=== PATIENT | female | born 1960 | race Hispanic/Latino ===

== ENCOUNTER 2017-02-18 22:42 | Observation (INO) | payer MEDICARE, MEDICAID ==
[2017-02-18 23:54] LABS: PTT 39.5 SEC (22.9-36.1); Prothrombin Time 16.8 SEC (12.0-14.7)
[2017-02-18 23:56] LABS: ALT (SGPT) 24 U/L (8-55); AST (SGOT) 30 U/L (5-34); Alkaline Phosphatase 199 U/L (40-150); Anion Gap 15 mmol/L (10-20); BUN (Urea Nitrogen) 33 mg/dL (9.8-20.1); CK (CPK) 50 U/L (29-168); Calc. Creatinine Clearance 0 mL/min (70-130); Calcium 9.6 mg/dL (7.8-10.44); Carbon Dioxide 20 mmol/L (22-29); Chloride 108 mmol/L (98-107); Estimated GFR-MDRD 28; Globulin 3.8 g/dL (2.4-3.5); Lipase 9 U/L (8-78); Protein, Total 7.8 g/dL (6.0-8.3)
[2017-02-19] LABS: #Eosinphils 0.2 thou/uL (0.0-0.7); #Monocytes 0.1 thou/uL (0.11-0.59); #Neutrophils 2.2 thou/uL (1.40-6.50); %Basophils 0.7 % (0.0-1.0); %Eosinophils 4.3 % (0.0-10.0); %Lymphocytes 29.3 % (21.0-51.0); %Monocytes 3.8 % (0.0-10.0); Hematocrit 37.8 % (36.0-47.0); Mean Platelet Volume 13.7 fL (7.4-10.4); Red Blood Cell (RBC) Count 4.27 mill/uL (4.20-5.40); Troponin I 0.012 ng/mL (< 0.028); White Blood Cell (WBC) Count 3.5 thou/uL (4.8-10.8)
--- NOTE | 2017-02-19 00:04 | RAD ---
PORTABLE AP CHEST X-RAY 02/18/17 HISTORY: Patient became lightheaded and dizzy at [facility]. Syncope. COMPARISON: 11/21/16. FINDINGS: Cardiac silhouette is magnified by projection but is stable in size. Pulmonary vasculature is within normal limits. Lungs are clear. Remote left clavicle fracture is again seen. There has been no inte rval change from prior study. IMPRESSION: No acute cardiopulmonary process. POS: [facility]
[2017-02-19 00:06] LABS: Bilirubin Negative (Negative); Blood, Urine Trace (Negative); Glucose, Urine (Dipstick) Negative (Negative); Ketone, Urine Negative (Negative); Nitrite Negative (Negative); Protein, Urine (Dipstick) Negative (Neg-Trace); Urobilinogen 0.2 mg/dL (0.2-1.0)
[2017-02-19 00:09] LABS: RBC/HPF 0-3 HPF (0-3); Squamous Epithelial 0-3 HPF (0-3); WBC/HPF 0-3 HPF (0-3)
[2017-02-19 00:10] LABS: Bacteria/HPF None Seen HPF (None Seen); Hyaline Casts/LPF 0-3 HYALINE CAST LPF (0-3 Hyaline)
[2017-02-19 00:14] LABS: Acetaminophen Less than 6.0 mcg/mL (10.0-30.0); Salicylate Less than 8.0 mg/dL (15.0-30.0)
[2017-02-19 00:17] LABS: Amphetamine Not Detected (NotDetected); Methadone Not Detected (NotDetected); Methamphetamine Not Detected (NotDetected)
[2017-02-19 02:18] VITALS: BMI 24.2
[2017-02-19] MEDS ORDERED: Sodium Chloride 0.9% 1,000 ML IV SCH (02:28)
[2017-02-19] MEDS ORDERED: Dextrose 5% in Water 1,000 ML IV PRN (02:28)
[2017-02-19] MEDS ORDERED: Dextrose 50% Abboject 50 ML SYRINGE SLOW IVP PRN (02:28)
[2017-02-19] MEDS ORDERED: Mag-Al 1200 mg/1200 mg/30 ML UDCUP PO PRN (02:28)
[2017-02-19] MEDS ORDERED: HumaLOG 300 UNITS/3 ML VIAL SC PRN (02:28)
[2017-02-19] MEDS ORDERED: hydrOXYzine 25 MG TAB PO SCH (03:30)
[2017-02-19] MEDS: HumaLOG 300 UNITS/3 ML VIAL SC PRN ×3 (05:49→16:51)
[2017-02-19 05:52] LABS: Anion Gap 13 mmol/L (10-20); BUN (Urea Nitrogen) 30 mg/dL (9.8-20.1); Calc. Creatinine Clearance 29 mL/min (70-130); Calcium 9.1 mg/dL (7.8-10.44); Carbon Dioxide 19 mmol/L (22-29); Chloride 110 mmol/L (98-107); Estimated GFR-MDRD 29
--- NOTE | 2017-02-19 07:57 | HP ---
PRIMARY CARE PHYSICIAN: She says she cannot remember the name, but does say a physician in [facility]. CHIEF COMPLAINT: \\\\"I am feeling tired and weak and almost passed out [facility].\\\\" HISTORY OF PRESENT ILLNESS: Ms. Gonzalez is a very pleasant 56-year-old female that has a history o f alcoholic cirrhosis as well as diabetes and hypertension. She says for the last 2 weeks, she has been feeling relatively weak and tired. She says that about 2 weeks ago, she felt like she was almo st going to pass out and this was in her home and then she says she was in [employer] shopping when she suddenly felt dizzy and felt like the room was spinning and her vision went black. She says that o ne of the employees in the store noticed it and she was about to fall, but they were able to help he r. She says for a while she felt disoriented and did not know where she was. They called an ambula nce and brought her to the emergency room in [place]. She had a CT scan of the brain done there w hich was negative and then she was transferred to our facility for further evaluation. Currently, t he patient is doing okay. She says she still feels a bit tired and weak. When asked to elaborate o n feeling weak and bad, the patient says that again she just feels tired, but then she became really tearful and says that she has been very depressed and basically lonely. She says that after her mo ther about 2 years ago, she has been very depressed. She admits that she has not discussed thi s with her primary care physician and has not sought any help about it. She lives alone and says th at she has no children and that her sisters and brothers are all busy with their lives and activitie s. She also admits to not eating very much in the last few weeks as well. REVIEW OF SYSTEMS: Constitutional: There have been no fevers, chills, no night sweats, no weight l oss. HEENT: She says she has had a headache off and on, feeling dizzy, some blurred vision off and on. No sore throat, no rhinorrhea, neck pain, no adenopathy. Pulmonary: No hemoptysis, no cough, no wheezing. Cardiovascular: She denies any chest pain. She says occasionally she feels like her heart is racing. There is no PND, no orthopnea. Gastrointestinal: No abdominal pain, no increase in abdominal girth. No significant change in bowels. Genitourinary: She does complain of some dy suria off and on, but no frequency. Musculoskeletal: No muscle pains, weakness or joint pains. Sk in/Integument: She does complain of her skin itching almost all the time and occasionally she will get a rash. Psychiatric: Again the patient does admit to feeling depressed in the last 2 weeks venita addison, but no suicidal or homicidal ideation. PAST MEDICAL HISTORY: Significant for cirrhosis secondary to alcohol, chronic kidney disease stage 4, hypertension, and diabetes mellitus type 2. PAST SURGICAL HISTORY: She has had an AV fistula placed. ALLERGIES: Allergies are to MORPHINE, which causes a rash. FAMILY HISTORY: Significant for diabetes, hypertension, and coronary artery disease in both sides o f her family. SOCIAL HISTORY: She is a nonsmoker. She used to drink heavily, but has not drank in 2 years. She is single and lives alone. MEDICATIONS: Include lactulose and insulin 70/30 twenty units twice a day as well as atenolol 25 mg daily. PHYSICAL EXAMINATION: GENERAL: She is alert and oriented. She appears to be in no acute distress. VITAL SIGNS: Blood pressure is 154/62, heart rate 59, respiratory rate of 18, temperature is 98. HEENT: Her pupils are equal, round, and reactive. Extraocular muscles are intact. Her sclerae are anicteric. Throat, no erythema, no exudates. She has got poor dentition. NECK: She has no bruits, no adenopathy. CARDIOVASCULAR: She has a normal S1, S2. She does have a significant systolic murmur that is radia ting to the carotids. ABDOMEN: Soft. There was some mild diffuse tenderness, but there is no rebound or guarding. EXTREMITIES: There is no edema. No rashes, no bruises, no petechiae. NEUROLOGIC: The exam is nonfocal. LABORATORY RESULTS: Sodium 138, potassium 4.8, chloride is 108, CO2 is 20, BUN of 33, creatinine 1. 86, glucose is 165. White blood cell count 3.5, hemoglobin 12.4, hematocrit is 37.8, platelet count was 22. Urine drug screen was negative. Urinalysis was negative. ASSESSMENT AND PLAN: 1. This is a pleasant 56-year-old female that had a presyncopal episode earlier today. This is in the setting of having cirrhosis as well as decrease in oral intake recently. I suspect she may have been slightly volume depleted when this happened. However, given the audible murmur, we will go ah ead and get an echocardiogram as well as follow this up with carotid Dopplers and monitor her for an y significant arrhythmia and also check orthostasis. For the mild depression, we have counseled her on becoming more socially connected. She does have a local methodist that she attends and will also s tart her on a low dose of Zoloft and I have also encouraged her to discuss this with her primary car e physician as well. 2. For diabetes mellitus, we will continue her usual dose of insulin and also place her on a slidin g scale and monitor for any signs of significant hypoglycemia.
--- NOTE | 2017-02-19 09:30 | ULT ---
ULTRASOUND WITH DOPPLER DUPLEX CAROTID: History: 56-year-old female with syncope. Technique: Grayscale, color flow, and spectral analysis of major arteries of the neck. FINDINGS: There is mild to moderate calcified plaque at the bilateral proximal internal carotid arteries, incl uding internal carotid origins at the carotid bulbs. There is mild plaque at the proximal right exte rnal carotid and distal right common carotid. The highest peak systolic velocities in the internal carotid arteries are 85 cm/s on the right and 1 10 cm/s on the left. ICA/CCA ratios are 0.7 on the right and 1.2 on the left. Vertebral artery flow is antegrade bilaterally. IMPRESSION: 1. Bilateral atherosclerotic plaque at the proximal internal carotid arteries. 2. No hemodynamically significant stenosis. POS: [facility]
[2017-02-19] MEDS: Insulin NPH/Reg Insulin Hm 300 UNITS/3 ML VIAL SC SCH ×2 (10:31→16:51)
--- NOTE | 2017-02-19 14:45 | PDOC.PN ---
- Subjective Encounter Start Date: 02/19/17 Encounter Start Time: 14:43 Patient seen at bedside. No overnight events, states her legs are weak, but has been walking with the walking program. - Objective Resuscitation Status: Resuscitation Status FULL:Full Resuscitation Vital Signs & Weight: Vital Signs (12 hours) Temp Pulse Resp BP BP BP BP 02/19/17 10:48 98.4 F 66 16 02/19/17 09:16 180/77 H 199/86 H 180/83 H 184/78 H 02/19/17 07:45 99.2 F 67 16 02/19/17 07:10 99.2 F 67 16 BP BP BP Pulse Ox 02/19/17 10:48 145/67 H 97 02/19/17 09:16 02/19/17 07:45 02/19/17 07:10 147/67 H 159/70 H 136/63 96 Weight Weight 120 lb I&O: 02/18/17 02/19/17 02/20/17 06:59 06:59 06:59 Intake Total 365 120 Output Total 100 Balance 265 120 Result Diagrams: 02/18/17 23:00 02/19/17 05:10 Additional Labs: Accuchecks 02/19/17 02/19/17 02/19/17 12:59 11:06 05:46 POC Glucose 365 H 445 H 366 H Phys Exam - Physical Examination Constitutional: NAD Dry oral mucosa Neck: no JVD Respiratory: clear to auscultation bilateral Cardiovascular: RRR Gastrointestinal: soft Musculoskeletal: pulses present Neurological: moves all 4 limbs Psychiatric: normal affect, A&O x 3 Dx/Plan (1) Syncope Code(s): R55 - SYNCOPE AND COLLAPSE Status: Suspected (2) Hepatorenal syndrome Code(s): K76.7 - HEPATORENAL SYNDROME Status: Chronic (3) ALESSANDRO (acute kidney injury) Code(s): N17.9 - ACUTE KIDNEY FAILURE, UNSPECIFIED Status: Acute Comment: (4) DM type 2 (diabetes mellitus, type 2) Status: Chronic (5) HTN (hypertension) Code(s): I10 - ESSENTIAL (PRIMARY) HYPERTENSION Status: Chronic - Plan cont current plan of care, PT/OT, social worker school, out of bed/ambulate * Unclear etiology to her near syncopal episode. Orthostatics have been negative. She does have a first degree AV Block. Her atenolol has been discontinued and should likely remain discontinued * Start Hydralazine for better BP control * Continue gentle IV hydration. Her CKD is likely from hepatorenal syndrome. CMET in AM * Walking program * CM for HH assistance.
[2017-02-19] MEDS: Multivit, Therapeutic 1 TAB PO SCH (21:35)
[2017-02-19] MEDS: hydrOXYzine 25 MG TAB PO SCH (21:36)
[2017-02-20 05:42] LABS: ALT (SGPT) 18 U/L (8-55); AST (SGOT) 29 U/L (5-34); Alkaline Phosphatase 142 U/L (40-150); Anion Gap 9 mmol/L (10-20); BUN (Urea Nitrogen) 32 mg/dL (9.8-20.1); Bilirubin, Total 1.1 mg/dL (0.2-1.2); Calc. Creatinine Clearance 29 mL/min (70-130); Calcium 8.9 mg/dL (7.8-10.44); Carbon Dioxide 19 mmol/L (22-29); Chloride 113 mmol/L (98-107); Estimated GFR-MDRD 29
[2017-02-20] MEDS ORDERED: Prevnar 13-Val Conj/PF 0.5 ML SYRINGE IM ONE ×2 (09:00→11:00)
[2017-02-20] MEDS ORDERED: FLU VACC QS2017-18 36 mo. & older 0.5 ML SYRINGE IM ONE (09:00)
[2017-02-20 09:31] LABS: Bilirubin Negative (Negative); Blood, Urine Trace (Negative); Glucose, Urine (Dipstick) Negative (Negative); Ketone, Urine Negative (Negative); Nitrite Negative (Negative); Protein, Urine (Dipstick) Negative (Neg-Trace); Urobilinogen 0.2 mg/dL (0.2-1.0)
[2017-02-20] MEDS: Insulin NPH/Reg Insulin Hm 300 UNITS/3 ML VIAL SC SCH ×2 (09:40→16:15)
[2017-02-20] MEDS ORDERED: Fluconazole 100 MG TAB PO SCH (11:15)
[2017-02-20] MEDS ORDERED: NPH, Human Insulin Isophane 300 UNIT/3 ML VIAL SC SCH (12:00)
[2017-02-20] MEDS: HumaLOG 300 UNITS/3 ML VIAL SC PRN (12:03)
--- NOTE | 2017-02-20 13:47 | PRG ---
DATE OF SERVICE: 02/20/2017 SUBJECTIVE: The patient seen and examined at bedside. She is complaining about neck pain. Her blo od pressure is elevated and her glycemia went up significantly. OBJECTIVE: VITAL SIGNS: Blood pressure is 190/86, pulse is 83, temperature is 99.0, pulse oximetry is 95% on r oom air. GENERAL: She looks somewhat tired and emaciated. HEENT: Eyes, conjunctivae pinkish. Oral mucosa is somewhat dry. NECK: Supple. LUNGS: Clear. HEART: S1, S2 normal. ABDOMEN: Mildly distended, but soft, nontender. EXTREMITIES: No clubbing, cyanosis or edema. NEUROLOGIC EXAMINATION: She is alert and oriented x4. There are no motor deficits. LABORATORY DATA: Showed glycemia at 457. Urinalysis showed trace of blood, otherwise within normal limits. Sodium of 136, potassium 4.6, chloride 113, CO2 19, BUN 32 and creatinine 1.79. Estimated GFR 29. Glycemia is ranging from 138 to 457. IMPRESSION: 1. Syncope and collapse. 2. Acute on chronic kidney injury. 3. Diabetes mellitus type 2. 4. Uncontrolled hypertension. PLAN: Start her on calcium channel jake to control her blood pressure better. She had elevated blood pressure yesterday. We will also add additional dose of insulin 70/30 along with her regular dose, which is 20 units twice a day. I will try her on tramadol for her neck pain and should able t o be discharged home in the next 24-48 hours.
[2017-02-20] MEDS ORDERED: Insulin Regular 300 UNITS/3 ML VIAL SC SCH (16:00)
[2017-02-20] MEDS: hydrOXYzine 25 MG TAB PO SCH (20:58)
[2017-02-20] MEDS: Multivit, Therapeutic 1 TAB PO SCH (20:58)
[2017-02-21] MEDS: HumaLOG 300 UNITS/3 ML VIAL SC PRN ×3 (06:00→15:50)
[2017-02-21] MEDS: Insulin NPH/Reg Insulin Hm 300 UNITS/3 ML VIAL SC SCH (08:31)
[2017-02-21] MEDS ORDERED: Fluconazole 100 MG TAB PO SCH (09:00)
[2017-02-21 11:41] VITALS: BP 139/65; TEMP 99.2
--- NOTE | 2017-02-21 14:54 | PDOC.PN ---
- Subjective Encounter Start Date: 02/21/17 Encounter Start Time: 14:52 Ms. Gonzalez is complaining of feeling a bit weak, otherwise ok. - Objective Resuscitation Status: Resuscitation Status FULL:Full Resuscitation MAR Reviewed: Yes Vital Signs & Weight: Vital Signs (12 hours) Temp Pulse Resp BP BP Pulse Ox 02/21/17 10:38 99.2 F 85 16 139/65 98 02/21/17 08:30 85 02/21/17 07:30 99.3 F 85 16 144/64 H 96 02/21/17 07:15 99.5 F 85 16 96 02/21/17 05:56 83 18 152/70 H Weight Weight 120 lb I&O: 02/20/17 02/21/17 02/22/17 06:59 06:59 06:59 Intake Total 2154 900 Output Total 450 Balance 2154 450 Result Diagrams: 02/18/17 23:00 02/20/17 04:21 Additional Labs: Accuchecks 02/21/17 02/20/17 02/20/17 10:36 20:48 17:06 POC Glucose 444 H 274 H 370 H 02/20/17 15:37 POC Glucose 432 H Phys Exam - Physical Examination HEENT: PERRLA Respiratory: no wheezing, no rales, no rhonchi, clear to auscultation bilateral Cardiovascular: RRR, no significant murmur Gastrointestinal: soft, non-tender, positive bowel sounds Musculoskeletal: no edema Dx/Plan (1) Pre-syncope Status: Acute (2) Cirrhosis, alcoholic Code(s): K70.30 - ALCOHOLIC CIRRHOSIS OF LIVER WITHOUT ASCITES Status: Chronic Qualifiers: Ascites presence: with ascites Qualified Code(s): K70.31 - Alcoholic cirrhosis of liver with ascites (3) DM type 2 (diabetes mellitus, type 2) Status: Chronic (4) HTN (hypertension) Code(s): I10 - ESSENTIAL (PRIMARY) HYPERTENSION Status: Chronic (5) Thrombocytopenia Code(s): D69.6 - THROMBOCYTOPENIA, UNSPECIFIED Status: Chronic - Plan * Pre-syncope- possibly due to orthostasis * HTN- blood pressure medications have been adjusted * DM- blood glucose is labile, will discharge home on a sliding scale insulin .
--- NOTE | 2017-02-21 23:33 | DIS ---
PRIMARY CARE PHYSICIAN: The patient could not remember the name of her primary care physician. DATE OF ADMISSION: 02/19/2017 DATE OF DISCHARGE: 02/21/2017 DISCHARGE DISPOSITION: Home. PRIMARY DISCHARGE DIAGNOSES: 1. Presyncope. 2. Orthostatic hypotension. 3. Diabetes mellitus, type 2. 4. Alcoholic cirrhosis with coagulopathy and thrombocytopenia. 5. Depression. DISCHARGE MEDICATIONS: Include, hydroxyzine 25 mg at bedtime as well as Apresoline 25 mg twice a da y, Norvasc 2.5 mg daily, Zoloft 50 mg daily, nortriptyline 10 mg twice a day, lactulose 10 mg daily, insulin 70/30 of 26 units twice daily and Humalog on a sliding scale. CODE STATUS: FULL CODE. ALLERGIES: To DIPHENHYDRAMINE and MORPHINE. PROCEDURES DONE DURING ADMISSION: The patient had an echocardiogram in which the ejection fraction was estimated at 60%-65%. The left atrium was moderately dilated. The aortic valve was sclerotic, but not stenotic with a peak gradient of 16 mmHg. The patient had bilateral carotid Dopplers, which were negative for any flow limiting disease; however, there was some bilateral atherosclerotic plaq ue. HOSPITAL COURSE: Ms. Gonzalez is a very pleasant 56-year-old female, who came to the emergency room after she has been feeling tired and weak and almost passed out while she was at [facility], the compl ete details of which are outlined in the history and physical. She was placed in observation and ru led out. Carotid Doppler and echo were obtained, which were essentially negative and it is suspecte d that her symptoms are likely multifactorial, but contributed to by some orthostatic blood pressure that was noted on admission. She has had poor oral intake and she has chronic cirrhosis of the [facility], which likely contributing. She also admitted to some depressed feelings as well and these were discussed and she was started on Zoloft. She has been instructed to follow up with her primary care physician in 1-2 weeks and also did discuss her depression symptoms as well and medication changes were made as mentioned. She was taken off of atenolol and placed on hydralazine as well as amlodipi ne as she did have some degree of bradycardia on admission. Her heart rate at the time of discharge was in the 80s. Therefore, the patient is being discharged home.
--- NOTE | 2017-02-22 14:37 | EKG ---
Test Reason : Blood Pressure : / mmHG Vent. Rate : 053 BPM Atrial Rate : 053 BPM P-R Int : 222 ms QRS Dur : 088 ms QT Int : 488 ms P-R-T Axes : 021 018 067 degrees QTc Int : 457 ms Sinus bradycardia with 1st degree A-V block Otherwise normal ECG Confirmed by JEFF ARIAS, KELECHI ([id number]), technical editor ANNIE WOOD ([id number]) on 02/22/2017 2:37:02 PM Referred By: Confirmed By:KELECHI AGUILAR MD
== END 2017-02-21 17:00 | disposition home or self-care (01) ==
LOC: ERS 22:42 → 2SW 02-19 00:54
PROVIDERS: ADMIT Internal Medicine; ATTEND Internal Medicine
DX: R55 Syncope and collapse (principal); I95.1 Orthostatic hypotension; K70.30 Alcoholic cirrhosis of liver without ascites; D69.59 Other secondary thrombocytopenia; D68.8 Other specified coagulation defects; F32.9 Major depressive disorder, single episode, unspecified; I12.9 Hypertensive chronic kidney disease with stage 1 through stage 4 chronic kidney disease, or unspecified chronic kidney disease; E11.22 Type 2 diabetes mellitus with diabetic chronic kidney disease; N18.4 Chronic kidney disease, stage 4 (severe); Z88.5 Allergy status to narcotic agent; Z88.8 Allergy status to other drugs, medicaments and biological substances; Z79.4 Long term (current) use of insulin; Z79.899 Other long term (current) drug therapy; Z82.49 Family history of ischemic heart disease and other diseases of the circulatory system; Z99.2 Dependence on renal dialysis
CPT/HCPCS: 71010; 80048; 80053; 80306; 80307; 81003 ×2; 81015; 82140; 82550; 82553; 82962 ×3; 83690; 83880; 84146; 84484; 85610; 85730; 90670; 93005; 93306; 93880; 96361; 96374; 97139 ×6; 97530; 99285; G0008; G0009; G0378 ×2; G8987; G8988; Q2036; 36415; 36416; 84443; 85025; 90471; 90682; 96360; A4216; J0360

== ENCOUNTER 2018-07-06 03:48 | Inpatient (IN) | payer MEDICARE, MEDICAID ==
[2018-07-06 04:58] LABS: Hemoglobin 10.5 g/dL (12.0-16.0); Mean Corpuscular Hemoglobin 32.9 pg (27.0-31.0); Mean Corpuscular Volume 96.6 fL (78.0-98.0); Mean Platelet Volume 13.1 fL (7.4-10.4); Platelet Count 21 thou/uL (130-400); RBC Distribution Width 12.9 % (11.5-14.5); Red Blood Cell (RBC) Count 3.18 mill/uL (4.20-5.40); White Blood Cell (WBC) Count 4.8 thou/uL (4.8-10.8)
[2018-07-06 05:14] LABS: ALT (SGPT) 11 U/L (8-55); AST (SGOT) 10 U/L (5-34); Albumin 3.2 g/dL (3.5-5.0); Alkaline Phosphatase 102 U/L (40-150); Anion Gap 14 mmol/L (10-20); BUN (Urea Nitrogen) 49 mg/dL (9.8-20.1); Calc. Creatinine Clearance 0 mL/min (70-130); Calcium 8.8 mg/dL (7.8-10.44); Carbon Dioxide 16 mmol/L (22-29); Chloride 108 mmol/L (98-107); Estimated GFR-MDRD 23; Globulin 2.8 g/dL (2.4-3.5); Glucose 287 mg/dL (70-105); Potassium 4.4 mmol/L (3.5-5.1); Sodium 134 mmol/L (136-145)
[2018-07-06 05:22] LABS: #Lymphocytes 0.3 thou/uL (1.20-3.40); #Monocytes 0.4 thou/uL (0.11-0.59); %Basophils 0.4 % (0.0-1.0); %Eosinophils 0.9 % (0.0-10.0); %Monocytes 8.9 % (0.0-10.0); %Neutrophils 82.7 % (42.0-75.0); Band 22 % (5-11); Lymphocytes 7 % (21-51); MDiff Complete? YES; Monocytes 8 % (0-10); Neutrophil 63 % (42-75); Platelet Morphology Comment Appears Decreased; Reflex for Review?? YES
--- NOTE | 2018-07-06 07:11 | ULT ---
RIGHT UPPER QUADRANT ULTRASOUND: INDICATIONS: Abdominal pain. COMPARISON: Prior right upper quadrant ultrasound dated 06/14/2015. FINDINGS: Again seen is the cirrhotic morphology to the liver. There is slight dilatation of the main pancreat ic duct, up to 3 mm. There is dilatation of the common bile duct, up to 7 mm. These are both new fr om the prior exam. Gallstones are again seen within the gallbladder. No sonographic Tejeda sign is reported. No gallbladder wall thickening is grossly evident. The right kidney measured 8.4 cm in le ngth, without evidence of hydronephrosis. Visualized pancreatic parenchyma appears within normal kevin its. IMPRESSION: 1. Cirrhotic morphology of the liver. 2. Stable cholelithiasis. 3. Dilatation of the distal common bile duct, and slight prominence of the main pancreatic duct, at the level of the pancreatic head. A distal obstructing process within the common bile duct or ampull a cannot be entirely excluded. Recommend consideration for endoscope retrograde cholangiopancreatogr aphy or magnetic resonance cholangiopancreatography evaluation for additional evaluation for possible choledocholithiasis or a distal obstructing process. 4. No overt sonographic evidence of acute calculus cholecystitis. POS: [facility]
[2018-07-06] MEDS ORDERED: Artificial Tears 18 DROP/0.9 ML EA EYE PRN (08:40)
[2018-07-06] MEDS ORDERED: hydrALAZINE 20 MG/ML VIAL SLOW IVP PRN (08:40)
[2018-07-06] MEDS ORDERED: Eucerin (Mineral Oil/Petrolatum,White) 30 gm Jar TOP PRN (08:40)
[2018-07-06] MEDS ORDERED: Dextrose 50% Abboject 50 ML SYRINGE SLOW IVP PRN (08:40)
[2018-07-06] MEDS ORDERED: Ondansetron ODT 4 MG TAB PO PRN (08:40)
[2018-07-06] MEDS ORDERED: Ondansetron PF 4 MG/2 ML Vial IVP PRN (08:40)
[2018-07-06] MEDS ORDERED: Diabetic Tussin 200 MG/10 ML UDCUP PO PRN (08:40)
[2018-07-06] MEDS ORDERED: Sodium Chloride 0.65% Nasal 44 ML BOT EA NARE PRN (08:40)
[2018-07-06] MEDS ORDERED: Dextrose 5% in Water 1,000 ML IV PRN (08:40)
[2018-07-06] MEDS ORDERED: Bisacodyl 10 MG SUPP PR PRN (08:40)
[2018-07-06] MEDS ORDERED: Cepastat Lozenges 1 LOZ PO PRN (08:40)
[2018-07-06 08:50] VITALS: BMI 23.2
[2018-07-06] MEDS ORDERED: traMADol HCl 50 MG TAB PO SCH (09:45)
[2018-07-06] MEDS: Famotidine 20 MG TAB PO SCH (10:32)
[2018-07-06] MEDS: Famotidine/PF 20 mg/2ml Vial SLOW IVP SCH (10:33)
--- NOTE | 2018-07-06 11:38 | HP ---
PRIMARY CARE PHYSICIAN: [facility]. REASON FOR ADMISSION: Transferred from [facility] for hyperglycemia. HISTORY OF PRESENT ILLNESS: A 58-year-old female, who has underlying history of cirrhosis of liver and end-stage renal disease, who presented to [place] [facility] because she was having abdominal pain, which was predominantly diffuse lower part in the right lower quadrant and below umbilicus, 4 x 10 in intensity. There was no specific aggravating or relieving factor, but the patient was having intermittent pain on and Friday, she had diarrhea, which was only little liquidy and soft, associated with crampy abdominal pain. On Friday, she was having nausea and vomiting. She was feeling subjective fevers. She denies any UTI symptoms. She denies any melena or hematochezia. She denies any vomiting of blood. She denies any flu-like symptoms. The patient's symptoms gotten worse on Friday and that is why she decided to go to emergency room last night at [facility], where she had CT scan of abdomen, which showed third-spacing in gallbladder area. The patient was transferred to our emergency room. The patient was found with cirrhotic morphology of liver. She had ultrasound of right upper quadrant, which showed cholelithiasis and dilatation of distal common bile duct. The patient has chronic hypersplenism and chronic thrombocytopenia. She denies any petechiae or any kind of bleeding from any side of her body. REVIEW OF SYSTEMS: CONSTITUTIONAL: Negative for weight loss or gain, ability to conduct usual activities. SKIN: Negative for rash, itching. EYES: Negative for double vision, pain. ENT/MOUTH: Negative for nose bleeding, neck stiffness, pain, tenderness. CARDIOVASCULAR: Negative for palpitations, dyspnea on exertion, orthopnea. RESPIRATORY: Negative for shortness of breath, wheezing, cough, hemoptysis, fever or night sweats. GASTROINTESTINAL: Negative for poor appetite, abdominal pain, heartburn, nausea, vomiting, constipation, or diarrhea. GENITOURINARY: Negative for urgency, frequency, dysuria, nocturia. MUSCULOSKELETAL: Negative for pain, swelling. NEUROLOGIC/PSYCHIATRIC: Negative for anxiety, depression. ALLERGY/IMMUNOLOGIC: Negative for skin rash, bleeding tendency. Please see my HPI for pertinent positive and negative. All other review of systems reviewed and negative except as mentioned in the HPI. PAST MEDICAL HISTORY: Liver cirrhosis, diabetes type 2, hypersplenism, chronic thrombocytopenia, chronic disease anemia, ESRD with history of dialysis, and hypertension. PAST SURGICAL HISTORY: History of dialysis shunt in left arm. PAST PSYCHIATRIC HISTORY: Reviewed and negative. Anxiety and depression. SOCIAL HISTORY: The patient denies any alcohol abuse. She denies any other illicit drug abuse. She denies any smoking. FAMILY HISTORY: No family history of coronary artery disease, stroke, or cancer. ALLERGIES: BENADRYL AND MORPHINE. CURRENT HOME MEDICATIONS: 1. Atarax 25 mg p.o. at bedtime. 2. Lactulose daily. 3. Amitriptyline 10 mg b.i.d. 4. Norvasc 2.5 mg p.o. daily. 5. Humulin 70/30. 6. Hydralazine 25 mg b.i.d. 7. Zoloft 50 mg p.o. daily. PHYSICAL EXAMINATION: VITAL SIGNS: On arrival, blood pressure 125/67, pulse 74, respiratory rate 16, temperature 99.6, and saturation 94% on room air. Weight 47.1 kg. GENERAL: The patient is currently alert, awake, chronically ill, no obvious acute distress. HEENT: Head; normocephalic, atraumatic. Eyes; pupils are round and reactive to light. Extraocular muscle intact. ENT; oropharynx within normal limits. Pale mucous membranes. No pharyngeal erythema. No exudate. NECK: Supple. No JVD. No thyromegaly. No carotid bruit. LUNGS: Clear to auscultation without any rhonchi or rales. CARDIAC: S1 and S2 appears regular. Systolic murmur noted parasternally and all over precordium. ABDOMEN: Soft, diffuse discomfort noted predominantly in the right lower quadrant and suprapubic region. No Tejeda's sign. BACK: Unremarkable. No CVA tenderness. EXTREMITIES: Upper extremities, passive movement of all joints are normal. Lower extremity, no edema. Good distal pulsation. SKIN: No skin rash. HEMATOLOGICAL SYSTEM: No lymphadenopathy. NEUROLOGIC: Nonfocal examination. SIGNIFICANT LABORATORY DATA: CBC; WBC 4.8, hemoglobin 10.5, and platelet 21. BMP; sodium 134, potassium 4.4, chloride 108, carbon dioxide 16, BUN 49, creatinine 2.21, glucose 287, and calcium 8.8. LFT; AST 10, ALT 11, alkaline phosphatase 102, and albumin 3.2. Blood test done at [facility] reviewed. Abdominal ultrasound consistent with cirrhotic morphology of liver, hypersplenism, cholelithiasis, dilatation of distal common bile duct. CT abdomen and pelvis done at [facility], reviewed by me. ASSESSMENT AND PLAN: 1. Dilatation of distal common bile duct. The patient does have cholelithiasis. The patient does have right upper quadrant and lower abdominal discomfort. She has underlying cirrhosis. We will consult Gastroenterology for evaluation. Strange thing with this patient is her LFTs completely unremarkable, but cirrhosis can be contributing. We will defer further plan to last dipper regarding endoscopic retrograde cholangiopancreatography. Because of renal insufficiency, the patient is not a good candidate to get MRCP. 2. Cirrhosis of liver with portal hypertension. The patient has hypersplenism and because of that, the patient has chronic thrombocytopenia. Currently, the patient does not have any decompensation. We will continue symptomatic treatment. 3. History of hypertension, but currently low blood pressure. We will hold on antihypertensive medication and we will resume blood pressure medication if blood pressure permits. 4. Hyperglycemia associated with diabetes type 2. Once we verify her home medication, we will resume her home dose of insulin. We will monitor Accu-Chek every 4 hourly and cover with aggressive sliding-scale insulin. Diabetic diet will be given. 5. Ovarian mass. We will obtain a pelvic ultrasound for further evaluation. The patient will need outpatient [employer] followup. 6. Chronic kidney disease, stage 5/end-stage renal disease. Nephrology will be consulted. 7. Metabolic acidosis, likely due to renal failure. 8. Anemia of chronic disease secondary due to chronic kidney disease as well as cirrhosis of liver. 9. Chronic thrombocytopenia without any active evidence of bleeding secondary to hypersplenism. 10. Deep vein thrombosis prophylaxis, SCD boots. Gastrointestinal prophylaxis, Pepcid 20 mg p.o. or IV daily. 11. Code status: The patient is full code. The patient does not have any surrogate decision maker. DISPOSITION PLAN: Based on clinical course, we are expecting the patient's stay in hospital 24 to 48 hours. Plan of care discussed with the patient in detail. Job ID: [id number]
--- NOTE | 2018-07-06 12:44 | ULT ---
ULTRASOUND PELVIC COMPLETE: HISTORY: Pelvic mass. COMPARISON: CT 07/05/2018. FINDINGS: Exam is limited as the patient refused transvaginal approach. In the left adnexa is a 3 cm mass which is somewhat hypoechoic, although not anechoic. Concerning fo r a possible malignant process in a patient of this age. Endometrial thickness if 4 mm. Uterus measures 5.6 x 4.6 cm. IMPRESSION: Severely limited exam due to lack of transvaginal approach. A 3 cm hypoechoic although not an anecho ic mass in the left adnexa not completely characterized. If clinically warranted, MRI with and witho ut contrast of pelvis may be clinically helpful. POS: [facility]
[2018-07-06] MEDS: HumaLOG 300 UNITS/3 ML VIAL SC PRN ×3 (12:59→20:41)
[2018-07-06] MEDS: Sodium Chloride 0.9% 1,000 ML IV SCH (19:31)
--- NOTE | 2018-07-06 23:40 | CON ---
DATE OF CONSULTATION: HISTORY OF PRESENT ILLNESS: Ms. Gonzalez is a 58-year-old female who was initially admitted from [facility] for hypercalcemia. She has a known history of cirrhosis and chronic renal failure from a presumed diabetic nephropathy? During the initial workup, she was found to have an abnormal ultrasound. We are being consulted for her acute kidney injury on top of her chronic renal failure. Baseline creatinine is usually at about 1.9. Creatinine is mildly elevated today at about 2 mg%. REVIEW OF SYSTEMS: Positive for abdominal pain. No nausea. No vomiting. Decreased appetite. Decreased energy level. No headache. No syncopal episode. No productive cough. No fever or chills. No gross hematuria. No dysuria. No urinary frequency. Positive for abdominal discomfort. PAST MEDICAL HISTORY: 1. Chronic renal failure. 2. Status post acute kidney injury, was temporarily on maintenance hemodialysis. 3. The patient has history of cirrhosis, hypersplenism, chronic thrombocytopenia, chronic anemia, and longstanding hypertension. 4. History of CHF. PAST SURGICAL HISTORY: Includes the following; 1. Status post AV fistula placement. 2. Status post cuffed dialysis catheter placement. 3. Status post exploration of the AV fistula for hematoma. SOCIAL HISTORY: The patient lives in [place]. Lives with her sister. No children. She is . No history of smoking. Status post alcohol abuse. Currently, no alcohol. Education, some college courses. Currently not working. No IV drug abuse. Status post blood transfusion. ALLERGIES: MORPHINE, PENICILLIN. TRAUMA: None. IMMUNIZATION: Up-to-date. HOSPITALIZATIONS: Please see past medical history. FAMILY HISTORY: No family history of ESRD. PHYSICAL EXAMINATION: VITAL SIGNS: Blood pressure is 86/49, heart rate 69, respiratory rate 18, temperature 98.1, and pulse ox 93%. GENERAL: Awake, alert, comfortable, not in overt distress. SKIN: Adequate turgor. HEENT: She has pinkish conjunctivae. Anicteric sclerae. No neck mass. No carotid bruits. No JVD. CHEST: No deformities. LUNGS: Decreased breath sounds. HEART: Normal sinus rhythm. Grade 2/6 systolic murmur. No gallops. No rubs. ABDOMEN: Globular, soft. Mild tenderness in right upper quadrant. EXTREMITIES: No edema. No deformities. She has a left AV fistula, positive for bruit and thrill. IMAGING STUDIES: 07/06/2018, ultrasound of the abdomen showed dilatation of distal common bile duct. There is a stable cholelithiasis. No evidence of acute calculous cholecystitis. On 07/06/2018, pelvic ultrasound ?of pelvic mass, severely limited exam due to lack of transvaginal approach at 3 cm hypoechoic noted. Recommendation is MRI. LABORATORY DATA: On 07/06/2018; white count 4.8, hemoglobin 10.5. Sodium 134, potassium 4.4, chloride 108, carbon dioxide 16, BUN 49, creatinine 2.21, glucose 287, calcium 8.8, and albumin 3.2. ASSESSMENT AND PLAN: 1. Acute kidney injury on top of her chronic renal failure, consider superimposed prerenal azotemia. The patient in a background of decreased BP. Consider starting this patient on normal saline at 100 mL/hr. There is no indication for any dialytic intervention with this patient. 2. Cirrhosis/abnormal abdominal ultrasound with findings of dilatation of common bile duct. GI consult has been done. Possibility of upper GI endoscopy/endoscopic retrograde cholangiopancreatography is being entertained by Dr. Colby. For the moment, we agree with current management. Continue supportive care. Job ID: [id number]
[2018-07-07] MEDS: HumaLOG 300 UNITS/3 ML VIAL SC PRN ×7 (00:28→23:47)
[2018-07-07] MEDS: Sodium Chloride 0.9% 1,000 ML IV SCH ×3 (04:08→19:46)
[2018-07-07 07:52] LABS: Hemoglobin 9.9 g/dL (12.0-16.0); Mean Corpuscular Hemoglobin 32.3 pg (27.0-31.0); Mean Corpuscular Volume 97.8 fL (78.0-98.0); Mean Platelet Volume 13.3 fL (7.4-10.4); Platelet Count 11 thou/uL (130-400); RBC Distribution Width 12.9 % (11.5-14.5); Red Blood Cell (RBC) Count 3.05 mill/uL (4.20-5.40); White Blood Cell (WBC) Count 2.4 thou/uL (4.8-10.8)
[2018-07-07 08:11] LABS: ALT (SGPT) 10 U/L (8-55); AST (SGOT) 12 U/L (5-34); Alkaline Phosphatase 99 U/L (40-150); Anion Gap 14 mmol/L (10-20); BUN (Urea Nitrogen) 54 mg/dL (9.8-20.1); Bilirubin, Total 0.9 mg/dL (0.2-1.2); Calc. Creatinine Clearance 23 mL/min (70-130); Calcium 8.4 mg/dL (7.8-10.44); Carbon Dioxide 15 mmol/L (22-29); Chloride 110 mmol/L (98-107); Estimated GFR-MDRD 23; Globulin 2.6 g/dL (2.4-3.5); Glucose 310 mg/dL (70-105); Potassium 4.7 mmol/L (3.5-5.1); Protein, Total 5.6 g/dL (6.0-8.3); Sodium 134 mmol/L (136-145)
[2018-07-07] MEDS: Famotidine 20 MG TAB PO SCH (08:25)
--- NOTE | 2018-07-07 08:36 | CON ---
DATE OF CONSULTATION: 07/06/2018 REASON FOR CONSULTATION: Abdominal pain, abnormal sonogram of the abdomen showing mildly dilated CBD and also mild dilatation of the pancreatic duct. HISTORY OF PRESENT ILLNESS: Elizabeth Gonzalez is a very pleasant 58-year-old Latin-Guy[place] female who is known to me from before. The patient is noted liver cirrhosis from before. The patient has seen me recently in 05/2018 with some vague abdominal pain. She had abdominal sonogram, which revealed gallstones which was felt to be asymptomatic. She also had liver cirrhosis with nodular liver. Her CBD was normal caliber. The patient was seen in [place] [facility] because of abdominal pain. Her abdominal pain is very atypical. Her pain is actually predominantly over the lower abdomen and it was felt across lower abdomen. She also feels some pain over the right side of the abdomen, especially the right lateral abdomen, not over the right upper quadrant. The pain is actually worse when . The pain is somewhat very atypical. The pain is actually in multiple locations from the right lower abdomen to the right upper quadrant, not coming around. Apparently, she has some nausea, vomiting on one day over the weekend. She also has transient diarrhea. She has had no stool for last couple of days. The patient was seen in the ER and hospitalized because of abnormal abdominal CAT scan showing fluid in the gallbladder area. The patient had abdominal sonogram, which revealed a mildly dilated CBD at 7 mm. The kidneys actually appeared normal. The pancreatic duct is up to 3 mm. Liver function test normal. The patient has had chronic GI symptoms over the last 2 to 3 years. She also complains of abdominal pain and also nausea etc. She has no relevant history. MEDICAL ILLNESSES: 1. Liver cirrhosis. 2. Type 2 diabetes. 3. Hypersplenism. 4. Chronic thrombocytopenia. 5. Chronic anemia. 6. Chronic kidney disease. 7. Hypertension. PAST SURGICAL HISTORY: History of dialysis access, AV shunt in left arm. NEUROPSYCHIATRY HISTORY: Depression and anxiety. SOCIAL HISTORY: The patient does not smoke or drink alcohol. No history of drug abuse. FAMILY HISTORY: Unremarkable. ALLERGIES: BENADRYL AND MORPHINE. MEDICATIONS: 1. Atarax. 2. Lactulose. 3. Amitriptyline. 4. Norvasc. 5. Humulin. 6. Hydralazine. 7. Zoloft. REVIEW OF SYSTEMS: 10-point system review; [employer]AND: No history of chronic headache. No TIA. No syncope. No seizure disorder. HEENT: No diplopia. No impaired vision. Ears; no ear pain or bleeding. Nose; no bleeding. RESPIRATORY SYSTEM: No history of chronic cough, hemoptysis, or dyspnea. CARDIOVASCULAR SYSTEM: No chest pain. No palpitation. No dyspnea, orthopnea, or PND. GI: Abdominal pain, nausea, vomiting, and transient diarrhea. GENITOURINARY: . MUSCULOSKELETAL: History of some back pain and arthralgias. PSYCHIATRIC: History of depression or anxiety. PHYSICAL EXAMINATION: GENERAL: She appears very comfortable, in no acute distress. She just complain of abdominal pain predominantly over the right and left lower quadrant. VITAL SIGNS: Afebrile. Pulse is 74, blood pressure 125/70. HEENT: Conjunctivae clear. NECK: Supple. No adenitis or thyromegaly noted. LUNGS: Clear to auscultation. ABDOMEN: Soft. She has multiple . She is actually tender over the right lower quadrant predominantly, but she is also tender all over the abdomen. There is no rebound or guarding. No organomegaly or masses. Bowel sounds normal. EXTREMITIES: Reveal no edema. LABORATORY DATA: Shows predominantly normal liver function tests and does not have elevated LFTs. Abdominal sonogram shows slightly dilated CBD to 7 mm, kidneys appear normal. Abdominal sonogram 6 weeks ago, which was basically negative at that time. CLINICAL IMPRESSION: Abdominal pain, etiology unclear. The pain is more diffuse and is localized. Although, she complains abdominal pain over the right lower quadrant and extending left lower abdomen, she has also pain all over. However, abdomen is very benign. No rebound or guarding noted. Impression of abdominal sonogram showing dilation of CBD and the pancreatic duct. She has gallstones and she is asymptomatic. She had gallstones from previous sonogram. normal liver function tests. However, recommend obtaining MRCP to visualize the common bile duct better. I will make further recommendations after the MRCP. In the meantime, we will also recommend symptomatic treatment with Tramadol 50 mg three times a day as needed. Job ID: [id number]
--- NOTE | 2018-07-07 09:00 | PRG ---
DATE OF SERVICE: 07/07/2018 SUBJECTIVE: Ms. Gonzalez is a 58-year-old female with known history of chronic renal failure and was admitted due to fluctuating blood sugar as well as abdominal pain. She has been evaluated by Dr. Colby. The issue is that the patient has some prominence of her pancreatic duct and dilatation of her distal common bile duct. Furthermore, patient has underlying cirrhosis. This morning, she was a little bit confused and still has a right upper quadrant tenderness. No complaints of chest pain or shortness of breath. Please note, this patient was started on normal saline due to the slightly higher creatinine/acute kidney injury on top of her chronic renal failure. OBJECTIVE: VITAL SIGNS: Blood pressure is 113/56, heart rate 83, respiratory rate 16, temperature 98, and pulse ox 93%. GENERAL: Awake, alert, comfortable, not in distress. HEENT: Pinkish conjunctivae. Slight icteric sclerae. NECK: No neck mass. LUNGS: Clear breath sounds. No wheezing. No crackles. HEART: Normal sinus rhythm. No murmurs. No gallops. No rubs. ABDOMEN: Globular soft, mildly tender at right upper quadrant. EXTREMITIES: No edema. No deformities. MEDICATIONS: Medications of July 07, 2018, was reviewed. LABORATORY DATA: Laboratories of July 07, 2018, white count 2.4, hemoglobin 9.9, and platelet count 11,000. Sodium 134, potassium 4.7, chloride 110, carbon dioxide 15, BUN 54, creatinine 2.15, albumin 3.0, and globulin 2.6. ASSESSMENT AND PLAN: 1. Thrombocytopenia - this may be related from her underlying splenomegaly/cirrhosis - 4 units of platelet transfusion will be done. 2. Borderline anemia. Continue to observe. 3. Acute kidney injury on top of chronic renal failure - normal saline at 100 mL/h. No indication for any dialytic intervention. 4. Cirrhosis/slight confusion - lactulose 20 g p.o. daily has been ordered. Overall agree with current management. Job ID: [id number]
[2018-07-07] MEDS: traMADol HCl 50 MG TAB PO PRN ×2 (09:19→20:08)
[2018-07-07 09:24] LABS: Band 29 % (5-11); Eosinophils 4 % (0-10); Lymphocytes 19 % (21-51); MDiff Complete? YES; Monocytes 9 % (0-10); Neutrophil 39 % (42-75); Platelet Morphology Comment Appears Decreased; Polychromasia SLIGHT = 2-3 cells (100X) (0-2/hpf)
[2018-07-07] MEDS: Famotidine/PF 20 mg/2ml Vial SLOW IVP SCH (11:17)
--- NOTE | 2018-07-07 11:36 | PDOC.PN ---
- Subjective Encounter Start Date: 07/07/18 Encounter Start Time: 07:00 Patient seen and examined. No new complaints. No overnight events - Objective Resuscitation Status - Order Detail: 07/06/18 08:07 Resuscitation Status Routine Resuscitation Status: FULL: Full Resuscitation MAR Reviewed: Yes Vital Signs & Weight: Vital Signs (12 hours) Temp Pulse Resp BP BP Pulse Ox 07/07/18 07:38 98.0 F 83 16 113/56 L 93 L 07/07/18 03:51 98.1 F 76 16 126/60 94 L 07/06/18 23:55 98.2 F 73 16 104/54 L 94 L Weight Weight 115 lb 1.6 oz I&O: 07/06/18 07/07/18 07/08/18 06:59 06:59 06:59 Intake Total 1909 Balance 1909 Result Diagrams: 07/07/18 07:15 07/07/18 07:15 Additional Labs: Accuchecks 07/07/18 07/07/18 07/07/18 08:15 03:58 00:04 POC Glucose 302 H 265 H 283 H 07/06/18 07/06/18 07/06/18 19:21 16:00 12:13 POC Glucose 273 H 238 H 307 H Phys Exam - Physical Examination Constitutional: NAD HEENT: PERRLA, moist MMs, sclera anicteric Neck: no JVD, supple Respiratory: no wheezing, no rales, no rhonchi Cardiovascular: RRR, no rub SM+ Gastrointestinal: soft, non-tender, no distention, positive bowel sounds splenomegaly Musculoskeletal: no edema, pulses present Neurological: non-focal, normal sensation Lymphatic: no nodes Psychiatric: normal affect, A&O x 3 Skin: no rash, normal turgor Dx/Plan (1) Adnexal mass Code(s): N94.9 - UNSP COND ASSOC W FEMALE GENITAL ORGANS AND MENSTRUAL CYCLE Status: Acute (2) Dilated bile duct Code(s): K83.8 - OTHER SPECIFIED DISEASES OF BILIARY TRACT Status: Acute (3) Hyperglycemia due to type 2 diabetes mellitus Code(s): E11.65 - TYPE 2 DIABETES MELLITUS WITH HYPERGLYCEMIA Status: Acute (4) CKD (chronic kidney disease) stage 4, GFR 15-29 ml/min Code(s): N18.4 - CHRONIC KIDNEY DISEASE, STAGE 4 (SEVERE) Status: Chronic (5) Cholelithiasis Code(s): K80.20 - CALCULUS OF GALLBLADDER W/O CHOLECYSTITIS W/O OBSTRUCTION Status: Chronic (6) Cirrhosis, alcoholic Code(s): K70.30 - ALCOHOLIC CIRRHOSIS OF LIVER WITHOUT ASCITES Status: Chronic Qualifiers: Ascites presence: with ascites Qualified Code(s): K70.31 - Alcoholic cirrhosis of liver with ascites (7) Coagulopathy Status: Chronic (8) DM type 2 (diabetes mellitus, type 2) Status: Chronic (9) HTN (hypertension) Code(s): I10 - ESSENTIAL (PRIMARY) HYPERTENSION Status: Chronic (10) Hypersplenism Code(s): D73.1 - HYPERSPLENISM Status: Chronic (11) Macrocytic anemia Code(s): D53.9 - NUTRITIONAL ANEMIA, UNSPECIFIED Status: Chronic (12) Pancytopenia Code(s): D61.818 - OTHER PANCYTOPENIA Status: Chronic Comment: due to cirrhosis (13) Portal hypertension Code(s): K76.6 - PORTAL HYPERTENSION Status: Chronic (14) Thrombocytopenia Code(s): D69.6 - THROMBOCYTOPENIA, UNSPECIFIED Status: Chronic - Plan cont current plan of care * today MRCP * discussed with GI * today will transfuse platelet * repeat labs tomorrow * medication reviewed as below * symptomatic treatment. Review of Systems - Review of Systems ENT: negative: Ear Pain, Ear Discharge, Nose Pain, Nose Discharge, Nose Congestion, Mouth Pain, Mouth Swelling, Throat Pain, Throat Swelling, Other Respiratory: negative: Cough, Dry, Shortness of Breath, Hemoptysis, SOB with Excertion, Pleuritic Pain, Sputum, Wheezing Cardiovascular: negative: chest pain, palpitations, orthopnea, paroxysmal nocturnal dyspnea, edema, light headedness, other Gastrointestinal: negative: Nausea, Vomiting, Abdominal Pain, Diarrhea, Constipation, Melena, Hematochezia, Other Genitourinary: negative: Dysuria, Frequency, Incontinence, Hematuria, Retention , Other Musculoskeletal: negative: Neck Pain, Shoulder Pain, Arm Pain, Back Pain, Hand Pain, Leg Pain, Foot Pain, Other - Medications/Allergies Allergies/Adverse Reactions: Allergies Allergy/AdvReac Type Severity Reaction Status Date / Time diphenhydramine Allergy Verified 02/19/17 02:45 [From Benadryl] morphine Allergy itch, swell Verified 02/19/17 02:12 Medications: Current Medications Acetaminophen (Tylenol) 650 mg PO Q4H PRN PRN Reason: Headache/Fever/Mild Pain (1-3) Artificial Tears (Tears Naturale) 2 drop EA EYE PRN PRN PRN Reason: Dry Eyes Bisacodyl (Dulcolax) 10 mg ID DAILYPRN PRN PRN Reason: Constipation Dextrose/Water (Dextrose 50%) 25 gm SLOW IVP PRN PRN PRN Reason: Hypoglycemia Famotidine (Pepcid) 20 mg PO DAILY [facility] Last Admin: 07/07/18 08:25 Dose: 20 mg Famotidine (Pepcid) 20 mg SLOW IVP DAILY [facility] Last Admin: 07/07/18 11:17 Dose: Not Given Glucagon (Glucagon) 1 mg IM PRN PRN PRN Reason: Hypoglycemia Guaifenesin (Robitussin Sf) 200 mg PO Q4H PRN PRN Reason: Cough Hydralazine HCl (Apresoline) 10 mg SLOW IVP Q4H PRN PRN Reason: SBP > 180 and HR < 70 Dextrose/Water (D5w) 1,000 mls @ 0 mls/hr IV .Q0M PRN PRN Reason: Hypoglycemia Sodium Chloride (Normal Saline 0.9%) 1,000 mls @ 100 mls/hr IV .Q10H [facility] Last Admin: 07/07/18 04:08 Dose: 1,000 mls Insulin Human Lispro (Humalog) 0 units SC .AGGRESSIVE SLIDING PRN PRN Reason: Aggressive Correctional Scale Last Admin: 07/07/18 08:18 Dose: 11 unit Insulin Human Lispro (Humalog) 0 units SC .BEDTIME SLIDING SC PRN PRN Reason: Bedtime Correctional Scale Last Admin: 07/07/18 04:08 Dose: 3 unit Lactulose (Lactulose) 20 gm PO DAILY [facility] Last Admin: 07/07/18 08:25 Dose: 20 gm Mineral Oil/White Petrolatum (Eucerin Cream) 0 gm TOP BIDPRN PRN PRN Reason: Dry Skin Ondansetron HCl (Zofran Odt) 4 mg PO Q6H PRN PRN Reason: Nausea/Vomiting Ondansetron HCl (Zofran) 4 mg IVP Q6H PRN PRN Reason: Nausea/Vomiting Senna/Docusate Sodium (Senokot S) 2 tab PO BID PRN PRN Reason: Constipation Sodium Chloride ([place] Nasal [place] 0.65%) 0 ml EA NARE QIDPRN PRN PRN Reason: Nasal Congestion Sodium Chloride (Flush - Normal Saline) 10 ml IVF Q12HR [facility] Last Admin: 07/07/18 11:17 Dose: Not Given Sodium Chloride (Flush - Normal Saline) 10 ml IVF PRN PRN PRN Reason: Saline Flush Throat Lozenges (Cepastat Lozenges) 1 delores PO Q2H PRN PRN Reason: Sore Throat Tramadol HCl (Ultram) 50 mg PO Q8H PRN PRN Reason: Moderate Pain (4-6) Last Admin: 07/07/18 09:19 Dose: 50 mg
--- NOTE | 2018-07-07 12:23 | MRI ---
MRI ABDOMEN AND MRCP WITHOUT CONTRAST: HISTORY: Right upper quadrant pain for a few months. Dilated common bile duct. COMPARISON: Gallbladder ultrasound from 07/06/2018. TECHNIQUE: Multiplanar, multisequence MR images were obtained of the abdomen without contrast. MRCP images were performed. Contrast could not be given, given the patient's poor renal function. FINDINGS: A filling defect is seen in the gallbladder, consistent with a gallstone. The common bile duct is at the upper limits of normal, measuring 7 mm. No filling defect is seen within the common bile duct. No intrahepatic biliary dilatation is seen. The pancreatic duct is normal in caliber. The spleen is enlarged, measuring 15.6 cm in length. There may be a slight nodular appearance of the liver, which could be secondary to cirrhosis. The kidneys, adrenal glands, and pancreas are unremar kable. No abdominal adenopathy is seen. IMPRESSION: 1. Cholelithiasis without evidence of choledocholithiasis. 2. Splenomegaly. 3. Possible cirrhotic liver. POS: YOUNG
--- NOTE | 2018-07-07 16:25 | PRG ---
DATE OF SERVICE: 07/07/2018 SUBJECTIVE: This is a 58-year-old fragile looking Latin[place] Islander female with liver cirrhosis, diabetes mellitus, chronic liver disease, chronic kidney disease. The patient also had hyperglycemia and abdominal pain. The abdominal sonogram shows dilation of the CBD to 7 mm with also mild dilation of the pancreatic duct. There were no masses or lesions. The patient had an MRI today without contrast. The MRA shows no common bile duct stone. Also, pancreatic duct appears normal in caliber. There were no masses or lesions. She does have gallstones, which is asymptomatic. The MRI also shows splenomegaly and findings of liver cirrhosis. The patient appears comfortable, at the same time complains of abdominal pain. The pain is probably pancreatic in nature. Her pain is very difficult really to come to any conclusion. Her pain is predominantly over the right lower quadrant. However, she has tender all over the abdomen. OBJECTIVE: GENERAL: Appears comfortable. VITAL SIGNS: Stable. Afebrile, pulse is 94, and blood pressure 124/64. CARDIOVASCULAR SYSTEM/LUNGS: Within normal limits. ABDOMEN: Abdomen is soft. Abdomen is nondistended. Abdomen is tender over the right lower quadrant and across the lower abdomen. She is also tender over the left upper quadrant, epigastric area, and right upper quadrant. Overall the exam is benign. IMPRESSION: 1. Abdominal pain, chronic in nature. 2. MRA shows no common bile duct stone or any pancreatic mass. RECOMMENDATION: Symptomatic treatment. Job ID: [id number]
[2018-07-08] MEDS: Acetaminophen 325 MG TAB PO PRN ×2 (03:29→16:25)
[2018-07-08] MEDS: HumaLOG 300 UNITS/3 ML VIAL SC PRN ×6 (04:09→23:54)
[2018-07-08 04:32] LABS: Mean Corpuscular HGB CONC 34.2 g/dL (32.0-36.0); Mean Corpuscular Hemoglobin 32.7 pg (27.0-31.0); Mean Corpuscular Volume 95.7 fL (78.0-98.0); Mean Platelet Volume 12.8 fL (7.4-10.4); Platelet Count 17 thou/uL (130-400); RBC Distribution Width 12.7 % (11.5-14.5); Red Blood Cell (RBC) Count 2.74 mill/uL (4.20-5.40); White Blood Cell (WBC) Count 2.7 thou/uL (4.8-10.8)
[2018-07-08 04:53] LABS: Anion Gap 12 mmol/L (10-20); BUN (Urea Nitrogen) 40 mg/dL (9.8-20.1); Band 30 % (5-11); Calc. Creatinine Clearance 27 mL/min (70-130); Calcium 8.4 mg/dL (7.8-10.44); Carbon Dioxide 15 mmol/L (22-29); Chloride 114 mmol/L (98-107); Eosinophils 1 % (0-10); Estimated GFR-MDRD 29; Glucose 298 mg/dL (70-105); Lymphocytes 18 % (21-51); MDiff Complete? YES; Monocytes 7 % (0-10); Neutrophil 43 % (42-75); Platelet Morphology Comment Appears Decreased; Potassium 4.6 mmol/L (3.5-5.1); Sodium 136 mmol/L (136-145)
[2018-07-08] MEDS: Sodium Chloride 0.9% 1,000 ML IV SCH ×2 (05:42→16:24)
[2018-07-08] MEDS: Famotidine 20 MG TAB PO SCH (08:45)
[2018-07-08] MEDS: Famotidine/PF 20 mg/2ml Vial SLOW IVP SCH (08:45)
--- NOTE | 2018-07-08 10:17 | PRG ---
DATE OF SERVICE: 07/08/2018 SUBJECTIVE: Ms. Gonzalez is a 58-year-old female with known history of chronic renal failure from presumed hypertensive nephropathy. She also had a superimposed acute kidney injury. Empiric volume repletion has been done. She also manifested signs of hepatic encephalopathy and for that reason, lactulose have been started. She is still complaining of some right lower quadrant/right upper quadrant pain. MRI of the abdomen was done on July 07, 2018, and it showed cholelithiasis without evidence of choledocholithiasis. There is incidental finding of splenomegaly and cirrhotic liver. The initial ultrasound of the abdomen shows some dilated hepatic ducts, but this was not seen on the MRI. No other complaints. No chest pain or shortness of breath. OBJECTIVE: VITAL SIGNS: Blood pressure 124/66, heart rate 73, respiratory rate 18, temperature 97.9, and pulse ox 91%. GENERAL: Noted to be awake, alert, comfortable, not in overt distress. SKIN: Adequate turgor. HEENT: She has slightly pale conjunctivae. Anicteric sclerae. No neck mass. No carotid bruits. No JVD. CHEST: No deformities. LUNGS: Clear breath sounds. HEART: Normal sinus rhythm. No murmurs, gallops, or rubs. ABDOMEN: Globular, soft, nontender. No masses. EXTREMITIES: No edema. No deformities. MEDICATIONS: Medications of July 08, 2018, was reviewed. LABORATORY DATA: Laboratories of July 08, 2018; white count 2.7, hemoglobin 9, platelet count 17,000. Sodium 136, potassium 4.6, chloride 114, carbon dioxide 15, BUN 40, creatinine 1.8, glucose 298, calcium 8.4. Ammonia level noted at 70. ASSESSMENT AND PLAN: 1. Acute kidney injury/chronic renal failure-superimposed prerenal azotemia, much improved creatinine with IV volume repletion. She is nearing baseline renal function. Continue current management. There is no indication for any dialytic intervention. 2. Thrombocytopenia-secondary to her splenomegaly-status post platelet transfusion. Continue to observe. 3. Anemia. We will continue to observe. 4. Abdominal pain/right upper quadrant pain-MRI shows cholelithiasis. GI is following. 5. Overall, agree with current management. Recheck basic metabolic panel and CBC in a.m. Job ID: [id number]
--- NOTE | 2018-07-08 14:07 | PDOC.PN ---
- Subjective Encounter Start Date: 07/08/18 Encounter Start Time: 11:00 Subjective: Patient examined, reports she feels about the same -: Reports continued RUQ abdominal pain -: Given lactulose this am, getting up to have a BM after exam - Objective Resuscitation Status - Order Detail: 07/06/18 08:07 Resuscitation Status Routine Resuscitation Status: FULL: Full Resuscitation Vital Signs & Weight: Vital Signs (12 hours) Temp Pulse Resp BP BP BP Pulse Ox 07/08/18 12:00 98.3 F 78 16 144/68 H 96 07/08/18 08:00 97.9 F 73 18 124/66 124/66 96 07/08/18 03:56 98.2 F 82 16 148/68 H 92 L Weight Admit Weight 52.208 kg Weight 52.163 kg I&O: 07/07/18 07/08/18 07/09/18 06:59 06:59 06:59 Intake Total 1909 3765 114 Balance 1909 3765 114 Result Diagrams: 07/08/18 04:22 07/08/18 04:22 Additional Labs: Accuchecks 07/08/18 07/08/18 07/08/18 12:03 08:16 03:56 POC Glucose 262 H 232 H 296 H 07/07/18 07/07/18 07/07/18 23:32 19:28 15:21 POC Glucose 271 H 294 H 196 H 07/07/18 11:37 POC Glucose 226 H Phys Exam - Physical Examination HEENT: PERRLA Neck: no nodes, no JVD Respiratory: clear to auscultation bilateral Cardiovascular: RRR, no significant murmur Gastrointestinal: soft mild pain to RUQ on palpation Musculoskeletal: no edema Neurological: non-focal, normal sensation Lymphatic: no nodes Psychiatric: normal affect, A&O x 3 Skin: normal turgor, cap refill <2 seconds Dx/Plan (1) Dilated bile duct Code(s): K83.8 - OTHER SPECIFIED DISEASES OF BILIARY TRACT Status: Acute (2) CKD (chronic kidney disease) stage 4, GFR 15-29 ml/min Code(s): N18.4 - CHRONIC KIDNEY DISEASE, STAGE 4 (SEVERE) Status: Chronic (3) Cholelithiasis Code(s): K80.20 - CALCULUS OF GALLBLADDER W/O CHOLECYSTITIS W/O OBSTRUCTION Status: Chronic Qualifiers: Cholecystitis presence: without cholecystitis (4) Cirrhosis, alcoholic Code(s): K70.30 - ALCOHOLIC CIRRHOSIS OF LIVER WITHOUT ASCITES Status: Chronic Qualifiers: Ascites presence: with ascites Qualified Code(s): K70.31 - Alcoholic cirrhosis of liver with ascites (5) Coagulopathy Status: Chronic (6) DM type 2 (diabetes mellitus, type 2) Status: Chronic (7) HTN (hypertension) Code(s): I10 - ESSENTIAL (PRIMARY) HYPERTENSION Status: Chronic (8) Hypersplenism Code(s): D73.1 - HYPERSPLENISM Status: Chronic (9) Macrocytic anemia Code(s): D53.9 - NUTRITIONAL ANEMIA, UNSPECIFIED Status: Chronic (10) Thrombocytopenia Code(s): D69.6 - THROMBOCYTOPENIA, UNSPECIFIED Status: Chronic Plan: Platelets= 17 today - Plan cont current plan of care Nephrology and GI following, lactulose started this am -: Will repeat labs in am, continue to trend VS -: GI states they would recommend symptom management -: Will follow * .
[2018-07-08] MEDS: traMADol HCl 50 MG TAB PO PRN (23:47)
[2018-07-09] MEDS: Acetaminophen 325 MG TAB PO PRN (04:07)
[2018-07-09] MEDS: HumaLOG 300 UNITS/3 ML VIAL SC PRN ×4 (04:12→20:32)
[2018-07-09 05:58] LABS: Mean Corpuscular HGB CONC 33.4 g/dL (32.0-36.0); Mean Corpuscular Hemoglobin 32.5 pg (27.0-31.0); Mean Corpuscular Volume 97.2 fL (78.0-98.0); Mean Platelet Volume 12.7 fL (7.4-10.4); Platelet Count 14 thou/uL (130-400); RBC Distribution Width 12.7 % (11.5-14.5); Red Blood Cell (RBC) Count 2.76 mill/uL (4.20-5.40); White Blood Cell (WBC) Count 2.9 thou/uL (4.8-10.8)
[2018-07-09 06:16] LABS: Anion Gap 12 mmol/L (10-20); BUN (Urea Nitrogen) 32 mg/dL (9.8-20.1); Calc. Creatinine Clearance 32 mL/min (70-130); Calcium 8.2 mg/dL (7.8-10.44); Carbon Dioxide 12 mmol/L (22-29); Chloride 118 mmol/L (98-107); Estimated GFR-MDRD 34; Glucose 190 mg/dL (70-105); Potassium 4.5 mmol/L (3.5-5.1); Sodium 137 mmol/L (136-145)
[2018-07-09 06:25] LABS: Band 16 % (5-11); Hypochromia SLIGHT = 6-15 cells (100X) (0-5/hpf); Lymphocytes 4 % (21-51); MDiff Complete? YES; Monocytes 12 % (0-10); Neutrophil 68 % (42-75); Platelet Morphology Comment Appears Adequate
[2018-07-09] MEDS ORDERED: Oxymetazoline HCl 0.05% ( 15 ML ) NASAL PRN (07:19)
--- NOTE | 2018-07-09 08:48 | PRG ---
DATE OF SERVICE: 07/09/2018 SUBJECTIVE: Ms. Gonzalez is a 58-year-old female, who was seen for acute kidney injury on top of her chronic renal failure. We felt that she had a prerenal component, given IV hydration. Renal function continues to improve. No other complaints today except for feeling of abdominal fullness and bloated feeling. The patient denies any chest pain or shortness of breath. OBJECTIVE: VITAL SIGNS: Blood pressure 130/68, heart rate 77, respiratory rate 18, pulse ox 94%, temperature 98.4. GENERAL: Noted to be awake, alert, comfortable, not in distress. SKIN: Adequate turgor. HEENT: Slightly pale conjunctivae. Anicteric sclerae. NECK: No neck mass. No carotid bruits. No JVD. LUNGS: Clear breath sounds. HEART: Normal sinus rhythm. No murmurs, gallops, or rubs. ABDOMEN: Globular, soft, nontender. No masses. EXTREMITIES: No edema, no deformities. MEDICATIONS: Medications of July 09, 2018, was reviewed. LABORATORY DATA: Laboratories of July 09, 2018, white count 2.9, hemoglobin 9, platelet count is 14,000. Sodium 137, potassium 4.5, chloride 118, carbon dioxide 12, BUN 32, creatinine 1.56, glucose 190, calcium 8.2. ASSESSMENT AND PLAN: 1. Acute kidney injury on top of her chronic renal failure - a superimposed hemodynamically-mediated renal dysfunction. Continued improvement. Continue supportive care. Please note, the patient has received IV hydration. We will await where the renal function will plateau. 2. Thrombocytopenia-secondary to her hypersplenism/splenomegaly-on p.r.n. platelet transfusion. 3. Anemia, stable. Continue current management. 4. Metabolic acidosis. Consider adding sodium bicarbonate 650 mg one tablet t.i.d. 5. Agree with current management. 6. Abdominal pain, clinically much improved. MRI of the abdomen shows no common bile duct, stone or any pancreatic mass. Job ID: [id number]
[2018-07-09] MEDS ORDERED: Sodium Bicarbonate Tab 325 MG TAB PO SCH (09:00)
[2018-07-09] MEDS: Oxymetazoline HCl 0.05% (30 ML BOT) NS PRN ×2 (09:15→20:31)
[2018-07-09] MEDS: Famotidine 20 MG TAB PO SCH (09:17)
[2018-07-09] MEDS: Famotidine/PF 20 mg/2ml Vial SLOW IVP SCH (09:18)
--- NOTE | 2018-07-09 11:04 | PDOC.PN ---
- Subjective Encounter Start Date: 07/09/18 Encounter Start Time: 08:00 Ms. Gonzalez was seen today in follow-up of abdominal pain. she says her pain is better today. It was noted that she has had a nose bleed for most of the night. When I came to see her it has stopped. - Objective Resuscitation Status - Order Detail: 07/06/18 08:07 Resuscitation Status Routine Resuscitation Status: FULL: Full Resuscitation MAR Reviewed: Yes Vital Signs & Weight: Vital Signs (12 hours) Temp Pulse Pulse Resp BP BP Pulse Ox 07/09/18 10:34 97.6 F 73 18 155/76 H 93 L 07/09/18 08:00 97.9 F 76 18 162/67 H 97 Weight Admit Weight 115 lb 1.6 oz Weight 115 lb I&O: 07/08/18 07/09/18 07/10/18 06:59 06:59 06:59 Intake Total 3765 2304 0 Balance 3765 2304 0 Result Diagrams: 07/09/18 05:43 07/09/18 05:43 Additional Labs: Accuchecks 07/09/18 07/09/18 07/08/18 08:38 04:12 23:54 POC Glucose 211 H 204 H 211 H 07/08/18 07/08/18 07/08/18 20:27 16:13 12:03 POC Glucose 225 H 239 H 262 H Phys Exam - Physical Examination HEENT: PERRLA Respiratory: no wheezing, no rales, no rhonchi, clear to auscultation bilateral Cardiovascular: RRR, no significant murmur, no rub Gastrointestinal: soft, non-tender, no distention, positive bowel sounds Musculoskeletal: pulses present, edema present trace pedal edema Dx/Plan (1) Epistaxis Code(s): R04.0 - EPISTAXIS Status: Acute (2) Abdominal pain, diffuse Code(s): R10.84 - GENERALIZED ABDOMINAL PAIN Status: Acute (3) Cholelithiasis Code(s): K80.20 - CALCULUS OF GALLBLADDER W/O CHOLECYSTITIS W/O OBSTRUCTION Status: Chronic Qualifiers: Cholecystitis presence: without cholecystitis (4) Cirrhosis, alcoholic Code(s): K70.30 - ALCOHOLIC CIRRHOSIS OF LIVER WITHOUT ASCITES Status: Chronic Qualifiers: Ascites presence: with ascites Qualified Code(s): K70.31 - Alcoholic cirrhosis of liver with ascites (5) DM type 2 (diabetes mellitus, type 2) Status: Chronic (6) HTN (hypertension) Code(s): I10 - ESSENTIAL (PRIMARY) HYPERTENSION Status: Chronic (7) Hypersplenism Code(s): D73.1 - HYPERSPLENISM Status: Chronic (8) Hepatic encephalopathy Code(s): K72.90 - HEPATIC FAILURE, UNSPECIFIED WITHOUT COMA Status: Acute - Plan * Epistaxis- this is likely due to thrombocytopenia- will transfuse a unit of platelets * Abdominal Pain- resolved- GI work-up was noted- will treat symptomatically * HTN- blood pressure is a bit labile- will re-start Amlodipine * DM- blood glucose is a bit elevated- will continue SSI * Cirrhosis- with hepatic encephalopathy- re-start her home dose of Lactulose which is a higher dose than what she is currently receiving * Hypersplenism related to cirrhosis- transfuse as necessary * Hopefully home soon
[2018-07-09] MEDS ORDERED: Non-Formulary Item 1 EACH (Sodium Bicarbonate [Sodium Bicarbonate] 650 MG) PO SCH (15:00)
[2018-07-09] MEDS: Sodium Bicarbonate Tab 325 MG TAB PO SCH ×2 (15:28→20:30)
[2018-07-10] MEDS: HumaLOG 300 UNITS/3 ML VIAL SC PRN ×5 (00:31→20:41)
[2018-07-10] MEDS: Acetaminophen 325 MG TAB PO PRN ×2 (01:49→05:59)
[2018-07-10 04:29] LABS: Hemoglobin 9.2 g/dL (12.0-16.0); Mean Corpuscular HGB CONC 34.2 g/dL (32.0-36.0); Mean Corpuscular Hemoglobin 33.1 pg (27.0-31.0); Mean Corpuscular Volume 96.8 fL (78.0-98.0); Mean Platelet Volume 12.7 fL (7.4-10.4); Platelet Count 20 thou/uL (130-400); RBC Distribution Width 12.8 % (11.5-14.5); Red Blood Cell (RBC) Count 2.77 mill/uL (4.20-5.40); White Blood Cell (WBC) Count 3.6 thou/uL (4.8-10.8)
[2018-07-10 04:48] LABS: #Eosinphils 0.1 thou/uL (0.0-0.7); #Lymphocytes 0.6 thou/uL (1.20-3.40); #Monocytes 0.5 thou/uL (0.11-0.59); #Neutrophils 2.4 thou/uL (1.40-6.50); %Basophils 0.3 % (0.0-1.0); %Eosinophils 1.9 % (0.0-10.0); %Lymphocytes 17.3 % (21.0-51.0); %Neutrophils 66.4 % (42.0-75.0); Platelet Morphology Comment Appears Decreased
[2018-07-10] MEDS: Famotidine 20 MG TAB PO SCH (08:18)
[2018-07-10] MEDS: Amlodipine 10 MG TAB PO SCH (08:19)
[2018-07-10] MEDS: Spironolactone 25 MG TAB PO SCH (08:19)
[2018-07-10] MEDS ORDERED: Non-Formulary Item 1 EACH (Spironolactone [Spironolactone] 50 MG) PO SCH (09:00)
[2018-07-10] MEDS ORDERED: Amlodipine 5 MG TAB PO SCH (09:00)
[2018-07-10] MEDS: Sodium Bicarbonate Tab 325 MG TAB PO SCH ×3 (09:46→20:41)
[2018-07-10] MEDS: traMADol HCl 50 MG TAB PO PRN ×2 (09:47→20:38)
--- NOTE | 2018-07-10 15:08 | PDOC.PN ---
- Subjective Encounter Start Date: 07/10/18 Encounter Start Time: 15:06 Ms. Gonzalez was seen today in follow-up of Abdominal pain. She does not have any pain now. she does not have any new complaints. - Objective Resuscitation Status - Order Detail: 07/06/18 08:07 Resuscitation Status Routine Resuscitation Status: FULL: Full Resuscitation MAR Reviewed: Yes Vital Signs & Weight: Vital Signs (12 hours) Temp Pulse Resp BP Pulse Ox 07/10/18 08:32 97.7 F 72 18 166/81 H 100 07/10/18 08:19 78 07/10/18 08:00 100 07/10/18 04:25 92 L Weight Admit Weight 115 lb 1.6 oz Weight 115 lb I&O: 07/09/18 07/10/18 07/11/18 06:59 06:59 06:59 Intake Total 2304 1210 Output Total 500 Balance 2304 710 Result Diagrams: 07/10/18 04:09 07/09/18 05:43 Additional Labs: Accuchecks 07/10/18 07/10/18 07/10/18 08:30 04:17 00:24 POC Glucose 290 H 319 H 274 H 07/09/18 07/09/18 20:22 17:29 POC Glucose 290 H 319 H Phys Exam - Physical Examination HEENT: PERRLA Respiratory: no wheezing, no rales, no rhonchi, clear to auscultation bilateral Cardiovascular: RRR, no significant murmur, no rub Gastrointestinal: soft, positive bowel sounds + mildly distended, + diffuse tenderness Musculoskeletal: no edema Dx/Plan (1) Epistaxis Code(s): R04.0 - EPISTAXIS Status: Acute (2) Abdominal pain, diffuse Code(s): R10.84 - GENERALIZED ABDOMINAL PAIN Status: Acute (3) Cholelithiasis Code(s): K80.20 - CALCULUS OF GALLBLADDER W/O CHOLECYSTITIS W/O OBSTRUCTION Status: Chronic Qualifiers: Cholecystitis presence: without cholecystitis (4) Cirrhosis, alcoholic Code(s): K70.30 - ALCOHOLIC CIRRHOSIS OF LIVER WITHOUT ASCITES Status: Chronic Qualifiers: Ascites presence: with ascites Qualified Code(s): K70.31 - Alcoholic cirrhosis of liver with ascites (5) DM type 2 (diabetes mellitus, type 2) Status: Chronic (6) HTN (hypertension) Code(s): I10 - ESSENTIAL (PRIMARY) HYPERTENSION Status: Chronic (7) Hypersplenism Code(s): D73.1 - HYPERSPLENISM Status: Chronic (8) Hepatic encephalopathy Code(s): K72.90 - HEPATIC FAILURE, UNSPECIFIED WITHOUT COMA Status: Acute - Plan * Abdominal pain- improved * Epistaxis- resolved * DM- blood glucose is elevated- will re-start her home dose of insulin * Cirrhosis- advanced but compensated compensated * Hepatic encephalopathy- stable- continue lactulose .
[2018-07-10] MEDS: Insulin Glargine 16 UNITS in Pre-Filled Syringe 1 EACH SC SCH (20:40)
[2018-07-10] MEDS ORDERED: INSULIN DETEMIR 16 UNIT SQ SCH (21:00)
[2018-07-11] MEDS: HumaLOG 300 UNITS/3 ML VIAL SC PRN ×2 (01:13→18:28)
[2018-07-11] MEDS: Acetaminophen 325 MG TAB PO PRN ×2 (01:13→23:34)
[2018-07-11] MEDS: Spironolactone 25 MG TAB PO SCH (08:32)
[2018-07-11] MEDS: Sodium Bicarbonate Tab 325 MG TAB PO SCH ×3 (09:42→21:24)
[2018-07-11] MEDS: Amlodipine 10 MG TAB PO SCH (09:43)
[2018-07-11] MEDS: Furosemide 20 MG TAB PO SCH (09:43)
[2018-07-11] MEDS: Famotidine 20 MG TAB PO SCH (09:43)
[2018-07-11] MEDS: Insulin Glargine 16 UNITS in Pre-Filled Syringe 1 EACH SC SCH ×2 (09:53→21:24)
--- NOTE | 2018-07-11 11:46 | PDOC.PN ---
- Subjective Encounter Start Date: 07/11/18 Encounter Start Time: 11:44 Ms. Gonzalez was seen today in follow-up of abdominal pain. She continues to have some intermittent abdominal discomfort. She also complains of feeling weak. - Objective Resuscitation Status - Order Detail: 07/06/18 08:07 Resuscitation Status Routine Resuscitation Status: FULL: Full Resuscitation MAR Reviewed: Yes Vital Signs & Weight: Vital Signs (12 hours) Temp Pulse Resp BP Pulse Ox 07/11/18 09:43 78 07/11/18 09:35 98.0 F 81 18 149/70 H 96 07/11/18 04:00 96 Weight Admit Weight 115 lb 1.6 oz Weight 115 lb I&O: 07/10/18 07/11/18 07/12/18 06:59 06:59 06:59 Intake Total 1210 740 Output Total 500 450 Balance 710 290 Result Diagrams: 07/10/18 04:09 07/09/18 05:43 Additional Labs: Accuchecks 07/11/18 07/11/18 07/11/18 09:11 04:27 00:07 POC Glucose 204 H 171 H 243 H 07/10/18 07/10/18 20:19 16:14 POC Glucose 257 H 340 H Phys Exam - Physical Examination HEENT: PERRLA Respiratory: no wheezing, no rales, no rhonchi, clear to auscultation bilateral Cardiovascular: RRR, no significant murmur, no rub Gastrointestinal: soft, no distention, positive bowel sounds mild diffuse tenderness Musculoskeletal: no edema Dx/Plan (1) Abdominal pain, diffuse Code(s): R10.84 - GENERALIZED ABDOMINAL PAIN Status: Acute (2) Epistaxis Code(s): R04.0 - EPISTAXIS Status: Acute (3) Cholelithiasis Code(s): K80.20 - CALCULUS OF GALLBLADDER W/O CHOLECYSTITIS W/O OBSTRUCTION Status: Chronic Qualifiers: Cholecystitis presence: without cholecystitis (4) Cirrhosis, alcoholic Code(s): K70.30 - ALCOHOLIC CIRRHOSIS OF LIVER WITHOUT ASCITES Status: Chronic Qualifiers: Ascites presence: with ascites Qualified Code(s): K70.31 - Alcoholic cirrhosis of liver with ascites (5) DM type 2 (diabetes mellitus, type 2) Status: Chronic (6) HTN (hypertension) Code(s): I10 - ESSENTIAL (PRIMARY) HYPERTENSION Status: Chronic (7) Hypersplenism Code(s): D73.1 - HYPERSPLENISM Status: Chronic (8) Hepatic encephalopathy Code(s): K72.90 - HEPATIC FAILURE, UNSPECIFIED WITHOUT COMA Status: Acute - Plan * Abdominal pain- ? etiology- treating symptomatically * Cirrhosis- advanced but compensated * HTN- blood pressure is stable * DM- blood glucose has improved * Awaiting family input to help with discharge planning.
[2018-07-11] MEDS: traMADol HCl 50 MG TAB PO PRN ×2 (12:23→18:37)
[2018-07-12] MEDS: HumaLOG 300 UNITS/3 ML VIAL SC PRN ×4 (01:03→16:33)
[2018-07-12] MEDS: Spironolactone 25 MG TAB PO SCH (08:24)
[2018-07-12] MEDS: Sodium Bicarbonate Tab 325 MG TAB PO SCH ×3 (08:24→20:36)
[2018-07-12] MEDS: Amlodipine 10 MG TAB PO SCH (08:25)
[2018-07-12] MEDS: Famotidine 20 MG TAB PO SCH (08:25)
[2018-07-12] MEDS: traMADol HCl 50 MG TAB PO PRN ×2 (08:25→15:14)
[2018-07-12] MEDS: Furosemide 20 MG TAB PO SCH (08:26)
[2018-07-12] MEDS: Insulin Glargine 16 UNITS in Pre-Filled Syringe 1 EACH SC SCH ×2 (08:28→20:36)
[2018-07-12] MEDS: Acetaminophen 325 MG TAB PO PRN ×2 (08:28→15:14)
--- NOTE | 2018-07-12 11:45 | PDOC.PN ---
- Subjective Encounter Start Date: 07/12/18 Encounter Start Time: 11:44 Ms. Gonzalez was seen today in follow-up of abdominal pain. She continues to complain of abdominal pain off and on. She does not appear in any discomfort right now. - Objective Resuscitation Status - Order Detail: 07/06/18 08:07 Resuscitation Status Routine Resuscitation Status: FULL: Full Resuscitation MAR Reviewed: Yes Vital Signs & Weight: Vital Signs (12 hours) Temp Pulse Resp BP Pulse Ox 07/12/18 08:25 78 07/12/18 08:00 92 L 07/12/18 07:55 98.2 F 78 16 135/64 92 L Weight Admit Weight 115 lb 1.6 oz Weight 115 lb I&O: 07/11/18 07/12/18 07/13/18 06:59 06:59 06:59 Intake Total 740 630 Output Total 450 4 Balance 290 626 Result Diagrams: 07/10/18 04:09 07/09/18 05:43 Additional Labs: Accuchecks 07/12/18 07/12/18 07/12/18 08:00 04:17 01:00 POC Glucose 207 H 160 H 219 H 07/11/18 07/11/18 07/11/18 19:35 16:17 12:04 POC Glucose 197 H 206 H 284 H Phys Exam - Physical Examination HEENT: PERRLA Respiratory: no wheezing, no rales, no rhonchi, clear to auscultation bilateral Cardiovascular: RRR, no significant murmur, no rub Gastrointestinal: soft, non-tender, no distention, positive bowel sounds Musculoskeletal: pulses present, edema present trace edema Dx/Plan (1) Abdominal pain, diffuse Code(s): R10.84 - GENERALIZED ABDOMINAL PAIN Status: Acute (2) Epistaxis Code(s): R04.0 - EPISTAXIS Status: Acute (3) Cholelithiasis Code(s): K80.20 - CALCULUS OF GALLBLADDER W/O CHOLECYSTITIS W/O OBSTRUCTION Status: Chronic Qualifiers: Cholecystitis presence: without cholecystitis (4) Cirrhosis, alcoholic Code(s): K70.30 - ALCOHOLIC CIRRHOSIS OF LIVER WITHOUT ASCITES Status: Chronic Qualifiers: Ascites presence: with ascites Qualified Code(s): K70.31 - Alcoholic cirrhosis of liver with ascites (5) DM type 2 (diabetes mellitus, type 2) Status: Chronic (6) HTN (hypertension) Code(s): I10 - ESSENTIAL (PRIMARY) HYPERTENSION Status: Chronic (7) Hypersplenism Code(s): D73.1 - HYPERSPLENISM Status: Chronic (8) Hepatic encephalopathy Code(s): K72.90 - HEPATIC FAILURE, UNSPECIFIED WITHOUT COMA Status: Acute - Plan * Abdominal pain- chronic, and etiology is unclear- continue to treat symptomatically * Cirrhosis- advanced but compensated * HTN- blood pressure is stable * DM- blood glucose is stable * Intermittent confusion- chronic- She lives alone, but has some family ( 2 sisters) nearby Family meeting is planned. - awaiting safe discharge plans.
[2018-07-13] MEDS: HumaLOG 300 UNITS/3 ML VIAL SC PRN (00:15)
[2018-07-13] MEDS: traMADol HCl 50 MG TAB PO PRN ×2 (04:12→12:01)
--- NOTE | 2018-07-13 08:14 | PDOC.PN ---
- Subjective Encounter Start Date: 07/13/18 Encounter Start Time: 08:13 Follow up abdominal pain in context of advanced cirrhosis. Feels a bit stronger , walked in halls yesterday, eating. Wishes to go home alone, does endorse a supportive family. No alcohol for 5 years per patient. No nausea/vomiting. Intermittent abd pain presently on occasional tramadol - Objective Resuscitation Status - Order Detail: 07/06/18 08:07 Resuscitation Status Routine Resuscitation Status: FULL: Full Resuscitation Vital Signs & Weight: Weight Admit Weight 115 lb 1.6 oz Weight 115 lb I&O: 07/12/18 07/13/18 07/14/18 06:59 06:59 06:59 Intake Total 630 690 Output Total 4 Balance 626 690 Result Diagrams: 07/10/18 04:09 07/09/18 05:43 Additional Labs: Accuchecks 07/13/18 07/12/18 07/12/18 04:14 23:23 19:30 POC Glucose 120 H 229 H 141 H 07/12/18 07/12/18 16:30 12:31 POC Glucose 169 H 201 H Phys Exam - Physical Examination Constitutional: NAD Talkative HEENT: PERRLA Neck: supple, full ROM Respiratory: no wheezing, clear to auscultation bilateral Cardiovascular: RRR Gastrointestinal: soft, non-tender minimal distention Musculoskeletal: edema present Neurological: non-focal, moves all 4 limbs Oriented to person, "Friday in July," difficulty recalling city of "[place]" knows she is in hospital Deviation from normal: as above Skin: no rash Dx/Plan (1) Acute kidney injury Code(s): N17.9 - ACUTE KIDNEY FAILURE, UNSPECIFIED Status: Acute (2) Metabolic acidosis Code(s): E87.2 - ACIDOSIS Status: Acute (3) Abdominal pain, diffuse Code(s): R10.84 - GENERALIZED ABDOMINAL PAIN Status: Chronic (4) Epistaxis Code(s): R04.0 - EPISTAXIS Status: Acute Plan: resolved (5) Hepatic encephalopathy Code(s): K72.90 - HEPATIC FAILURE, UNSPECIFIED WITHOUT COMA Status: Chronic (6) Cirrhosis, alcoholic Code(s): K70.30 - ALCOHOLIC CIRRHOSIS OF LIVER WITHOUT ASCITES Status: Chronic Qualifiers: Ascites presence: with ascites Qualified Code(s): K70.31 - Alcoholic cirrhosis of liver with ascites (7) DM type 2 (diabetes mellitus, type 2) Status: Chronic Qualifiers: Diabetes mellitus complication status: with hyperglycemia (8) HTN (hypertension) Code(s): I10 - ESSENTIAL (PRIMARY) HYPERTENSION Status: Chronic (9) Thrombocytopenia Code(s): D69.6 - THROMBOCYTOPENIA, UNSPECIFIED Status: Chronic - Plan * GI - abdominal pain in context of advanced cirrhosis, appears to be clinically at baseline. Patient tells me she sees Dr. Moe from GI for her liver. No BM for last 2 days recorded, will increase lactulose to 20 g bid. Continue lasix and aldactone. * HTN - BP stable * DM - BG somewhat elevated, no episodes hypoglycemia, follow * Thrombocytopenia secondary to hypersplenism * ALESSANDRO - last lab 07/09, metabolic acidosis with HCO3 12 at that time noted. Considering bicarb supplement per Dr Boyd. Send BMP to follow up renal function and HCO3 * Chart reviewed, awaiting safe discharge plan, will need to discuss with case management for input.
[2018-07-13] MEDS: Spironolactone 25 MG TAB PO SCH (09:25)
[2018-07-13] MEDS: Insulin Glargine 16 UNITS in Pre-Filled Syringe 1 EACH SC SCH ×2 (09:25→20:59)
[2018-07-13] MEDS: Furosemide 20 MG TAB PO SCH (09:25)
[2018-07-13] MEDS: Famotidine 20 MG TAB PO SCH (09:26)
[2018-07-13] MEDS: Sodium Bicarbonate Tab 325 MG TAB PO SCH ×3 (09:26→20:57)
[2018-07-13] MEDS: Amlodipine 10 MG TAB PO SCH (09:26)
[2018-07-13 09:29] LABS: Anion Gap 13 mmol/L (10-20); BUN (Urea Nitrogen) 16 mg/dL (9.8-20.1); Calc. Creatinine Clearance 33 mL/min (70-130); Calcium 8.8 mg/dL (7.8-10.44); Carbon Dioxide 21 mmol/L (22-29); Chloride 109 mmol/L (98-107); Estimated GFR-MDRD 36; Glucose 92 mg/dL (70-105); Magnesium 1.4 mg/dL (1.6-2.6); Potassium 4.2 mmol/L (3.5-5.1); Sodium 139 mmol/L (136-145)
[2018-07-13] MEDS: Senokot S 8.6-50 MG TAB PO PRN (12:02)
[2018-07-13] MEDS: Acetaminophen 325 MG TAB PO PRN (20:57)
[2018-07-13] MEDS ORDERED: Magnesium 2 GM/50 ML 2 GM in Premix Bag 1 BAG IVPB SCH (21:45)
[2018-07-14] MEDS: Acetaminophen 325 MG TAB PO PRN ×2 (03:43→11:57)
[2018-07-14 05:25] LABS: ALT (SGPT) 7 U/L (8-55); AST (SGOT) 13 U/L (5-34); Albumin 2.8 g/dL (3.5-5.0); Alkaline Phosphatase 119 U/L (40-150); Anion Gap 13 mmol/L (10-20); BUN (Urea Nitrogen) 15 mg/dL (9.8-20.1); Bilirubin, Total 0.8 mg/dL (0.2-1.2); Calc. Creatinine Clearance 34 mL/min (70-130); Calcium 8.4 mg/dL (7.8-10.44); Carbon Dioxide 19 mmol/L (22-29); Chloride 109 mmol/L (98-107); Estimated GFR-MDRD 36; Globulin 2.8 g/dL (2.4-3.5); Glucose 121 mg/dL (70-105); Potassium 4.1 mmol/L (3.5-5.1); Protein, Total 5.6 g/dL (6.0-8.3); Sodium 137 mmol/L (136-145)
[2018-07-14 06:50] LABS: #Eosinphils 0.1 thou/uL (0.0-0.7); #Lymphocytes 0.6 thou/uL (1.20-3.40); #Monocytes 0.5 thou/uL (0.11-0.59); #Neutrophils 2.9 thou/uL (1.40-6.50); %Basophils 0.2 % (0.0-1.0); %Eosinophils 2.3 % (0.0-10.0); %Lymphocytes 14.3 % (21.0-51.0); %Neutrophils 71.2 % (42.0-75.0); Mean Corpuscular HGB CONC 33.7 g/dL (32.0-36.0); Mean Corpuscular Hemoglobin 32.1 pg (27.0-31.0); Mean Corpuscular Volume 95.2 fL (78.0-98.0); Mean Platelet Volume 10.7 fL (7.4-10.4); Platelet Count 40 thou/uL (130-400); Platelet Morphology Comment Appears Decreased
[2018-07-14 08:15] VITALS: BP 120/65; TEMP 98.3
[2018-07-14] MEDS: Sodium Bicarbonate Tab 325 MG TAB PO SCH (08:52)
[2018-07-14] MEDS: Insulin Glargine 16 UNITS in Pre-Filled Syringe 1 EACH SC SCH (08:52)
[2018-07-14] MEDS: Furosemide 20 MG TAB PO SCH (08:53)
[2018-07-14] MEDS: Famotidine 20 MG TAB PO SCH (08:53)
[2018-07-14] MEDS: Amlodipine 10 MG TAB PO SCH (08:53)
[2018-07-14] MEDS: Spironolactone 25 MG TAB PO SCH (08:53)
[2018-07-14] MEDS: Senokot S 8.6-50 MG TAB PO PRN (09:04)
--- NOTE | 2018-07-14 09:24 | PDOC.PN ---
- Subjective Encounter Start Date: 07/14/18 Encounter Start Time: 09:15 Subjective: awake, responds well to verbal questions -: no new complaints, has abd dyscomfort, says her legs hurt -: no nausea or vomiting, is tolerating oral diet, last bm yest - Objective Resuscitation Status - Order Detail: 07/06/18 08:07 Resuscitation Status Routine Resuscitation Status: FULL: Full Resuscitation MAR Reviewed: Yes Vital Signs & Weight: Vital Signs (12 hours) Temp Pulse Resp BP BP Pulse Ox 07/14/18 08:53 82 120/65 07/14/18 08:10 98.3 F 82 16 120/65 94 L Weight Admit Weight 115 lb 1.6 oz Weight 115 lb I&O: 07/13/18 07/14/18 07/15/18 06:59 06:59 06:59 Intake Total 690 920 Balance 690 920 Result Diagrams: 07/14/18 06:23 07/14/18 04:53 Additional Labs: Accuchecks 07/14/18 07/13/18 07/13/18 05:23 20:25 16:35 POC Glucose 110 176 H 117 H 07/13/18 07/10/18 11:12 12:01 POC Glucose 133 H 400 H Phys Exam - Physical Examination HEENT: PERRLA, moist MMs Neck: no JVD, supple Respiratory: no wheezing, no rales Cardiovascular: RRR, no significant murmur Gastrointestinal: soft, positive bowel sounds distention+, no rigidity or guarding Musculoskeletal: no edema, pulses present Neurological: non-focal, moves all 4 limbs Psychiatric: A&O x 3 Dx/Plan (1) Hepatic encephalopathy Code(s): K72.90 - HEPATIC FAILURE, UNSPECIFIED WITHOUT COMA Status: Acute Comment: resolved (2) Cholelithiasis Code(s): K80.20 - CALCULUS OF GALLBLADDER W/O CHOLECYSTITIS W/O OBSTRUCTION Status: Chronic Qualifiers: Cholelithiasis location: gallbladder Cholecystitis presence: without cholecystitis Biliary obstruction: without biliary obstruction Qualified Code(s): K80.20 - Calculus of gallbladder without cholecystitis without obstruction (3) Cirrhosis, alcoholic Code(s): K70.30 - ALCOHOLIC CIRRHOSIS OF LIVER WITHOUT ASCITES Status: Chronic Qualifiers: Ascites presence: with ascites Qualified Code(s): K70.31 - Alcoholic cirrhosis of liver with ascites (4) DM type 2 (diabetes mellitus, type 2) Status: Chronic Qualifiers: Diabetes mellitus retirement insulin use: with moth exterminator use Diabetes mellitus complication status: with hyperglycemia Qualified Code(s): E11.65 - Type 2 diabetes mellitus with hyperglycemia; Z79.4 - residential (current) use of insulin (5) HTN (hypertension) Code(s): I10 - ESSENTIAL (PRIMARY) HYPERTENSION Status: Chronic Qualifiers: Hypertension type: essential hypertension Qualified Code(s): I10 - Essential (primary) hypertension (6) Hypersplenism Code(s): D73.1 - HYPERSPLENISM Status: Chronic (7) Macrocytic anemia Code(s): D53.9 - NUTRITIONAL ANEMIA, UNSPECIFIED Status: Chronic (8) Pancytopenia Code(s): D61.818 - OTHER PANCYTOPENIA Status: Chronic Comment: due to cirrhosis - Plan hemostable -: awaiting placement -: to mobilize as tolerated in hallway, encourage po intake -: increase lactulose to tid, add nadolol, dc norvasc -: continue spironolactone, lantus and lasix * . Review of Systems - Medications/Allergies Allergies/Adverse Reactions: Allergies Allergy/AdvReac Type Severity Reaction Status Date / Time diphenhydramine Allergy Verified 02/19/17 02:45 [From Benadryl] morphine Allergy itch, swell Verified 02/19/17 02:12 Medications: Current Medications Acetaminophen (Tylenol) 650 mg PO Q4H PRN PRN Reason: Headache/Fever/Mild Pain (1-3) Last Admin: 07/14/18 03:43 Dose: 650 mg Amlodipine Besylate (Norvasc) 10 mg PO DAILY [facility] Last Admin: 07/14/18 08:53 Dose: 10 mg Artificial Tears (Tears Naturale) 2 drop EA EYE PRN PRN PRN Reason: Dry Eyes Bisacodyl (Dulcolax) 10 mg [place] DAILYPRN PRN PRN Reason: Constipation Colestipol HCl (Colestid) 1 gm PO BID [facility] Last Admin: 07/14/18 08:52 Dose: 1 gm Dextrose/Water (Dextrose 50%) 25 gm SLOW IVP PRN PRN PRN Reason: Hypoglycemia Famotidine (Pepcid) 20 mg PO DAILY [facility] Last Admin: 07/14/18 08:53 Dose: 20 mg Furosemide (Lasix) 20 mg PO DAILY [facility] Last Admin: 07/14/18 08:53 Dose: 20 mg Glucagon (Glucagon) 1 mg IM PRN PRN PRN Reason: Hypoglycemia Guaifenesin (Robitussin Sf) 200 mg PO Q4H PRN PRN Reason: Cough Hydralazine HCl (Apresoline) 10 mg SLOW IVP Q4H PRN PRN Reason: SBP > 180 and HR < 70 Dextrose/Water (D5w) 1,000 mls @ 0 mls/hr IV .Q0M PRN PRN Reason: Hypoglycemia Insulin Glargine 16 units/ (Miscellaneous Medication) 0.16 mls @ 0 mls/hr SC BID [facility] Last Admin: 07/14/18 08:52 Dose: 0.16 mls Insulin Human Lispro (Humalog) 0 units SC .AGGRESSIVE SLIDING PRN PRN Reason: Aggressive Correctional Scale Last Admin: 07/12/18 16:33 Dose: 3 unit Insulin Human Lispro (Humalog) 0 units SC .BEDTIME SLIDING SC PRN PRN Reason: Bedtime Correctional Scale Last Admin: 07/13/18 00:15 Dose: 2 unit Lactulose (Lactulose) 20 gm PO BID [facility] Last Admin: 07/14/18 08:52 Dose: 20 gm Lactulose (Lactulose) 20 gm PO DAILYPRN PRN PRN Reason: Constipation Last Admin: 07/13/18 12:01 Dose: 20 gm Mineral Oil/White Petrolatum (Eucerin Cream) 0 gm TOP BIDPRN PRN PRN Reason: Dry Skin Ondansetron HCl (Zofran Odt) 4 mg PO Q6H PRN PRN Reason: Nausea/Vomiting Ondansetron HCl (Zofran) 4 mg IVP Q6H PRN PRN Reason: Nausea/Vomiting Last Admin: 07/09/18 04:30 Dose: 4 mg Oxymetazoline HCl (Nasal Decongestant) 0 ml NS BIDPRN PRN PRN Reason: CONGESTION Last Admin: 07/09/18 20:31 Dose: 30 ml Senna/Docusate Sodium (Senokot S) 2 tab PO BID PRN PRN Reason: Constipation Last Admin: 07/14/18 09:04 Dose: 2 tab Sodium Bicarbonate (Bicarbonate, Sodium) 650 mg PO TID [facility] Last Admin: 07/14/18 08:52 Dose: 650 mg Sodium Chloride ([place] Nasal [place] 0.65%) 0 ml EA NARE QIDPRN PRN PRN Reason: Nasal Congestion Sodium Chloride (Flush - Normal Saline) 10 ml IVF Q12HR [facility] Last Admin: 07/14/18 08:53 Dose: Not Given Sodium Chloride (Flush - Normal Saline) 10 ml IVF PRN PRN PRN Reason: Saline Flush Spironolactone (Aldactone) 50 mg PO QAM-WM [facility] Last Admin: 07/14/18 08:53 Dose: 50 mg Throat Lozenges (Cepastat Lozenges) 1 delores PO Q2H PRN PRN Reason: Sore Throat Tramadol HCl (Ultram) 50 mg PO Q8H PRN PRN Reason: Moderate Pain (4-6) Last Admin: 07/13/18 12:01 Dose: 50 mg
[2018-07-15] MEDS ORDERED: Nadolol 40 MG TAB PO SCH (09:00)
--- NOTE | 2018-07-15 14:27 | DIS ---
DATE OF ADMISSION: 07/08/2018 DATE OF DISCHARGE: 07/14/2018 DISCHARGE DISPOSITION: Home. PRIMARY DISCHARGE DIAGNOSES: Hepatic encephalopathy with cirrhosis, likely alcohol induced. Cholelithiasis, diabetes mellitus type 2, hypertension, hypersplenism, macrocytic anemia, pancytopenia due to cirrhosis. PROCEDURES DONE DURING HOSPITALIZATION: Ultrasound of pelvic, complete done showed limited exam, there was a 3 cm hyperechoic, not an anechoic mass in the left adnexa, not completely characterized. Right upper quadrant ultrasound showed liver to have cirrhotic morphology, stable cholelithiasis. No overt sonographic evidence of acute calculous cholecystitis was seen. MRCP showed cholelithiasis without evidence of choledocholithiasis, splenomegaly was seen, possible cirrhotic liver. H and H 9 and 26, platelet count 40, MCV 95, white count of 4, BUN 15, creatinine 1.4, albumin 2.8, total bilirubin 0.8, AST and ALT 13 and 7. Initial BUN and creatinine were 49 and 2.2. INPATIENT CONSULT: Dr. Colby for Gastroenterology. DISCHARGE MEDICATION: 1. Nadolol 40 mg p.o. daily. 2. Spironolactone 50 mg p.o. daily. 3. Sodium bicarbonate 650 mg p.o. three times daily. 4. Lactulose 30 mL p.o. twice daily. 5. Levemir 16 units subcu twice daily. 6. Lasix 20 mg daily. 7. Colestipol 1 g p.o. twice daily. ALLERGIES: MORPHINE AND DIPHENHYDRAMINE. DISCHARGE PLAN: The patient to follow up with Dr. Colby in 2 weeks and primary care physician in 1 week. BRIEF COURSE DURING HOSPITALIZATION: The patient initially got transferred from [place] to for hyperglycemia. She was also encephalopathic and hepatic encephalopathy was diagnosed. The patient has pancytopenia likely due to hypersplenism and cirrhosis. She was initially kept n.p.o. Initial ultrasound was suspicious for possible choledocholithiasis. An MRCP was done, which revealed no evidence of the same. She was slowly weaned into solid food prior to discharge. She is also ambulating in the room prior to discharge. Her medications were optimized for cirrhosis. She needs to follow up with primary care physician in 1 week. Please see a [id number] documentation for the day of discharge on [employer]. Job ID: [id number]
== END 2018-07-14 14:58 | disposition home health service (06) | DRG 441 ==
LOC: ERS 03:48 → ONC 07:00 → OBSVTOIN 07-08 14:13
PROVIDERS: ADMIT Internal Medicine; ATTEND Internal Medicine
PROC: 30233R1 Transfusion of Nonautologous Platelets into Peripheral Vein, Percutaneous Approach (ICD-10-PCS; principal; 2018-07-08)
DX: K72.90 Hepatic failure, unspecified without coma (principal); N18.6 End stage renal disease; K76.6 Portal hypertension; E87.2 Acidosis; N17.9 Acute kidney failure, unspecified; D61.818 Other pancytopenia; I13.0 Hypertensive heart and chronic kidney disease with heart failure and stage 1 through stage 4 chronic kidney disease, or unspecified chronic kidney disease; K83.8 Other specified diseases of biliary tract; K70.31 Alcoholic cirrhosis of liver with ascites; K80.20 Calculus of gallbladder without cholecystitis without obstruction; E11.65 Type 2 diabetes mellitus with hyperglycemia; E11.22 Type 2 diabetes mellitus with diabetic chronic kidney disease; R19.00 Intra-abdominal and pelvic swelling, mass and lump, unspecified site; D63.1 Anemia in chronic kidney disease; R04.0 Epistaxis; D73.1 Hypersplenism; R82.994 Hypercalciuria; I50.9 Heart failure, unspecified; F41.8 Other specified anxiety disorders; Z79.4 Long term (current) use of insulin; Z88.5 Allergy status to narcotic agent; Z88.8 Allergy status to other drugs, medicaments and biological substances
CPT/HCPCS: 36415; 36416; 36430; 74181; 76705; 76856; 80048; 80053; 82140; 83735; 83930; 85025; 86850; 86900; 86901; J1825; J2405; J3475; P9035; S0028

== ENCOUNTER 2018-08-17 22:48 | Inpatient (IN) | payer MEDICARE, MEDICAID ==
[2018-08-18 00:46] LABS: ALT (SGPT) 8 U/L (8-55); AST (SGOT) 15 U/L (5-34); Albumin 2.5 g/dL (3.5-5.0); Alkaline Phosphatase 176 U/L (40-150); Anion Gap 16 mmol/L (10-20); BUN (Urea Nitrogen) 27 mg/dL (9.8-20.1); Bilirubin, Total 1.5 mg/dL (0.2-1.2); Calc. Creatinine Clearance 0 mL/min (70-130); Calcium 8.3 mg/dL (7.8-10.44); Carbon Dioxide 14 mmol/L (22-29); Chloride 110 mmol/L (98-107); Estimated GFR-MDRD 26; Globulin 3.1 g/dL (2.4-3.5); Glucose 231 mg/dL (70-105); Potassium 6.1 mmol/L (3.5-5.1); Protein, Total 5.6 g/dL (6.0-8.3); Sodium 134 mmol/L (136-145)
[2018-08-18] MEDS ORDERED: Insulin Regular 300 UNITS/3 ML VIAL ONE (01:24)
[2018-08-18] MEDS ORDERED: Dextrose 50% Abboject 50 ML SYRINGE ONE (01:24)
[2018-08-18] MEDS ORDERED: Calcium Chloride 13.6 MEQ in Sodium Chloride 0.9% 100 ML IVPB SCH (01:45)
[2018-08-18 08:54] LABS: Anion Gap 19 mmol/L (10-20); BUN (Urea Nitrogen) 25 mg/dL (9.8-20.1); Calc. Creatinine Clearance 0 mL/min (70-130); Calcium 9.1 mg/dL (7.8-10.44); Carbon Dioxide 11 mmol/L (22-29); Chloride 114 mmol/L (98-107); Estimated GFR-MDRD 26; Glucose 298 mg/dL (70-105); Potassium 5.6 mmol/L (3.5-5.1); Sodium 138 mmol/L (136-145)
[2018-08-18] MEDS ORDERED: Sodium Chloride 0.9% 1,000 ML IV SCH (09:15)
[2018-08-18] MEDS: Meperidine HCl/PF 25 MG/ML VIAL IM PRN ×2 (10:08→16:32)
--- NOTE | 2018-08-18 10:41 | CON ---
DATE OF CONSULTATION: SERVICE: Renal Medicine HISTORY OF PRESENT ILLNESS: Ms. Gonzalez is a 58-year-old female with chronic renal failure was admitted due to failure to thrive. According to her relatives, the patient has not been doing well. She has decreased p.o. intake. In addition, she has been having on and off abdominal pain, which is chronic in nature. We are now being consulted for her mild hyperkalemia as well as acute kidney injury on top of her chronic renal failure. Initial creatinine was noted at 1.9, and her baseline is about 1.5 to 1.6. I did discuss the case with the ER physician. Empiric volume repletion was given, and we discontinued her lisinopril. This morning, she is complaining of abdominal pain, this is chronic in nature. REVIEW OF SYSTEMS: Positive for on and off abdominal pain. Positive for decreased appetite and decreased energy level. No nausea. No vomiting. No syncopal episode. No productive cough. No fever or chills. No diarrhea or constipation. No dysuria. No hematochezia. No melena. Positive for abdominal pain. No fever or chills. No headache. No sore throat. Occasional joint pains. HOME MEDICATIONS: 1. Spironolactone 50 mg daily. 2. Sodium bicarbonate 650 mg p.o. t.i.d. 3. Nadolol 40 mg daily. 4. Lactulose 30 mL b.i.d. 5. Insulin Levemir 16 units subcu b.i.d. 6. Furosemide 20 mg daily. 7. Colestipol 1 g p.o. b.i.d. PAST MEDICAL HISTORY: 1. Chronic renal failure secondary to presumed diabetic nephropathy, status post acute kidney injury, was on temporary dialysis. 2. Cirrhosis. 3. Hypersplenism/splenomegaly. 4. Chronic thrombocytopenia. 5. Hypertension. 6. Status post CHF. PAST SURGICAL HISTORY: Status post upper GI endoscopy, status post AV fistula placement, status post cuffed hemodialysis catheter placement, and status post exploration of AV fistula for hematoma. SOCIAL HISTORY: The patient lives in [facility] with her sister. No children. She is . Status post alcohol abuse, currently no alcohol. Currently, no smoking. No drug abuse. Status post multiple blood transfusion. Education, some college courses. ALLERGIES: MORPHINE AND PENICILLIN. TRAUMA: None. IMMUNIZATION: Up to date. HOSPITALIZATIONS: Please see past medical history. FAMILY HISTORY: No family history of ESRD. PHYSICAL EXAMINATION: VITAL SIGNS: Blood pressure 100/70 and heart rate 70. GENERAL: Awake, alert, supine, in mild pain. SKIN: Decreased turgor. HEENT: She has slightly pale conjunctivae. Anicteric sclerae. NECK: No neck mass. No carotid bruits. No JVD. CHEST: No deformities. LUNGS: Clear breath sounds. No wheezing. No crackles. HEART: Normal sinus rhythm. No murmurs, gallops, or rubs. ABDOMEN: Globular, soft, nontender. No masses. ? of ascites. EXTREMITIES: No edema. NEUROLOGIC: Awake and oriented to 3 spheres. Moving all extremities. No tremors. No asterixis. LABORATORY DATA: Laboratories of August 17, 2018 - verbal report, potassium 6.1 and creatinine 1.9. ASSESSMENT AND PLAN: 1. Acute kidney injury on top of her chronic renal failure, stable. Continue current IV hydration. Discontinue lisinopril. Normal saline at 100 mL/h. No indication for any dialytic intervention. 2. Mild hyperkalemia, status post Kayexalate. 3. ? of anemia. We will recheck a CBC. 4. Abdominal pain, chronic in nature. Previous imaging - MRI of the abdomen was done back on June 2018. At that time, the MRI of the abdomen on July 07, 2018, showed splenomegaly, cirrhosis, and cholelithiasis without evidence of choledocholithiasis. 5. We will recheck another basic metabolic panel and CBC in a.m. Job ID: [id number]
[2018-08-18] MEDS ORDERED: Ondansetron PF 4 MG/2 ML Vial IVP PRN (11:30)
[2018-08-18] MEDS ORDERED: Ondansetron ODT 4 MG TAB PO PRN (11:30)
[2018-08-18] MEDS ORDERED: Dextrose 5% in Water 1,000 ML IV PRN (11:34)
[2018-08-18] MEDS ORDERED: Dextrose 50% Abboject 50 ML SYRINGE SLOW IVP PRN (11:34)
--- NOTE | 2018-08-18 11:56 | RAD ---
KUB: Indication: Abdominal pain, ileus fecal impaction. FINDINGS: Bowel gas pattern is nonspecific. There is gas filled loops of colon and small bowel seen within the central abdomen. There is gas present all the way to the level of the rectum. No acute osseous abnorm ality is evident. IMPRESSION: Mildly prominent gas filled loops of small and large bowel is suspicious for ileus. POS: [facility]
[2018-08-18] MEDS ORDERED: Sodium Bicarbonate 75 MEQ in Sodium Chloride 0.45% 1,000 ML IV SCH (12:00)
--- NOTE | 2018-08-18 12:47 | HP ---
CHIEF COMPLAINT: Worsening weakness and abdominal pain. HISTORY OF PRESENT ILLNESS: A 58-year-old female with known history of liver cirrhosis, CKD, type 2 diabetes, amongst others, who was just discharged from this hospital on July 16 following evaluation and treatment of abdominal pain, now back with worsening abdominal pain and generalized weakness. Of note, also the patient reportedly was admitted to another hospital in [place] between these two, prior to this current presentation. The patient reported that since discharge, she has been having worsening abdominal pain as well as weakness, poor appetite, nausea, vomiting. She also reported that she has not had a bowel movement since about 1 month associated with increasing abdominal size. She admitted being admitted in another hospital and was recently discharged, but symptoms persisted, hence she was brought to the ER in [place] yesterday by the sister and was subsequently transferred over here for further evaluation and treatment. Of note, during the recent hospitalization here, the patient was found to have cholelithiasis on ultrasound, but further evaluation with MRCP did not show choledocholithiasis or biliary dilatation or cholecystitis. Hence, the patient was treated conservatively with improvement. She denied hematemesis, melena, hematochezia, dysuria, hematuria, leg swelling, chest pain, headache, shortness of breath. The patient reportedly had dysuria about 2 weeks ago, which was treated with medication with resolution. She reported the weakness got so bad that she was unable to get out of bed. There has been no history of fever or chills. On presentation to the ER in [place], the patient was found to have ALESSANDRO as well as hyperkalemia. She has received Kayexalate and insulin as well as dextrose for hyperkalemia. PAST MEDICAL HISTORY: 1. CKD requiring dialysis for some time and has been off dialysis for about three years. 2. Hypertension. 3. Liver cirrhosis. 4. Type 2 diabetes mellitus. 5. Hypersplenism. 6. Chronic thrombocytopenia. 7. Nephrolithiasis. 8. Depression. PAST SURGICAL HISTORY: AV fistula creation on the left arm. FAMILY HISTORY: Noncontributory. There is no history of coronary artery disease, stroke, or cancer in family. SOCIAL HISTORY: The patient lives alone. She denied alcohol use currently, though admitted to heavy use in the past. Denied smoking or recreational drug abuse. ALLERGIES: BENADRYL AND MORPHINE. HOME MEDICATIONS: 1. Colestipol 1 g b.i.d. 2. Lasix 20 mg p.o. daily. 3. Levemir 16 units daily. 4. Lactulose 20 g b.i.d. 5. Sodium bicarbonate 650 mg p.o. b.i.d. 6. Spironolactone 50 mg p.o. daily. 7. Nadolol 40 mg p.o. daily. REVIEW OF SYSTEMS: A 12-point review of system performed was negative other than pertinent positives and negatives included in the history of present illness. PHYSICAL EXAMINATION: VITAL SIGNS: Current vitals are as follows; BP 176/95, pulse 95, respiratory rate 18, temperature 99, and SpO2 of 96% on room air. GENERAL: Frail, chronically ill-looking female, in no obvious distress. Afebrile. Anicteric. Acyanotic. HEENT: Normocephalic with some wasting of the face. Pupils are equal and reacting to light. Oral mucosa is dry. NECK: Supple, nontender with full range of motion. CARDIOVASCULAR: Regular rhythm and rate with normal heart sounds 1 and 2. RESPIRATORY: Good air entry bilaterally with no obvious crackle or rhonchi or use of accessory muscles. GI: Abdomen is enlarged, diffusely tender. Bowel sound is hypoactive. EXTREMITIES: Left arm AV fistula noted. Atrophy of the extremities noted with no obvious edema or erythema. Distal pulses are palpable. NEUROLOGIC: Conscious and alert, oriented to person, place, and time. Memory lapse is noted. Cranial nerves 2 through 12 are intact. DIAGNOSTIC DATA: CBC performed at [place] on August 17, 2018 showed WBC count of 4.73, hemoglobin of 10.6, MCV of 93.7, platelet of 35. CMP performed at [facility] on August 17, 2018 showed sodium 134, potassium 5.8, chloride 109, CO2 of 14, glucose 192, BUN 24.9, creatinine 1.9, magnesium 2.0, calcium 8.26, total bilirubin 1.5, alkaline phosphatase 177, AST 16, ALT 14, total protein 6, albumin 2.6. Lipase 8, ammonia 36, and total CK 36. Of note, initial BMP performed in this hospital showed sodium of 134, potassium of 6.1, chloride of 110, CO2 of 14, and creatinine of 1.93. Most current BMP performed on August 18 at 8:24 a.m. showed sodium 138, potassium 5.6, chloride 114, CO2 of 11, BUN 25, creatinine 1.95 with blood glucose of 298 and calcium of 9.1. Current ammonia is 32. Urinalysis performed at [place] showed clear urine with negative glucose, bilirubin, protein, leukocyte esterase, and nitrite. Microscopy showed 2 to 5 rbc's and 0 to 2 white blood cell count. ASSESSMENT: 1. Adult failure to thrive. 2. Moderate to severe protein calorie malnutrition. 3. Worsening abdominal pain: Etiology is unclear. The patient was noted to have cholelithiasis without choledocholithiasis or cholecystitis about a month ago. She reported no BM in the last one month, suggestive of fecal impaction. The patient has been on pain medication, which may have caused the constipation. Other acute abdominal problem is a concern. However, since the patient was also recently hospitalized at another hospital without any major intervention, acute abdomen seems unlikely. However, presence of metabolic acidosis is concerning. 4. Acute kidney injury: Etiology is unclear, but seems to be hemodynamic mediated from poor oral intake and dehydration. 5. Chronic kidney disease stage 3/4: The patient was on the dialysis for some time, but has been off dialysis more than three years ago. Cause of chronic kidney disease was thought to be diabetic nephropathy. 6. Alcoholic liver cirrhosis: This seems to be compensated with normal liver enzymes. 7. Chronic thrombocytopenia due to portal hypertension and liver cirrhosis. 8. Hypertension: Blood pressure is not suboptimal. The patient reports her inability to take her medication due to nausea. 9. Type 2 diabetes mellitus: Control is suboptimal. 10. Physical deconditioning, most likely due to acute illness and poor oral intake. 11. Chronic anemia of kidney disease. 12. History of cholelithiasis. 13. Hyperkalemia. 14. Constipation. PLAN: 1. We will substitute normal saline with bicarb containing infusion due to worsening hyperchloremic acidosis. 2. We will also get lactic acid and KUB. The patient has had several bowel motions following lactulose. We will continue lactulose. 3. We will restart the patient on diet as well as oral supplementation. 4. We will continue insulin therapy. 5. We will also continue nadolol. 6. PT/OT consult will be requested. 7. We will monitor renal function. 8. Analgesic as needed will be provided with tramadol. We will avoid Tylenol due to liver cirrhosis. 9. We will also avoid nephrotoxic agents including diuretics. DVT prophylaxis with SCD will be provided. No pharmacologic DVT prophylaxis due to severe thrombocytopenia and liver cirrhosis. 10. Code status, full. Sister is the surrogate decision maker. Job ID: [id number]
[2018-08-18 13:25] LABS: Lactic Acid 1.6 mmol/L (0.5-2.2)
[2018-08-18] MEDS ORDERED: hydrALAZINE 20 MG/ML VIAL SLOW IVP PRN (13:47)
[2018-08-18] MEDS ORDERED: Nadolol 40 MG TAB PO SCH (14:00)
[2018-08-18] MEDS: HumaLOG 300 UNITS/3 ML VIAL SC PRN ×2 (17:46→21:57)
[2018-08-19 05:03] LABS: ALT (SGPT) 12 U/L (8-55); AST (SGOT) 15 U/L (5-34); Albumin 2.6 g/dL (3.5-5.0); Alkaline Phosphatase 184 U/L (40-150); Anion Gap 14 mmol/L (10-20); BUN (Urea Nitrogen) 21 mg/dL (9.8-20.1); Bilirubin, Total 1.8 mg/dL (0.2-1.2); Calc. Creatinine Clearance 32 mL/min (70-130); Calcium 8.3 mg/dL (7.8-10.44); Carbon Dioxide 18 mmol/L (22-29); Chloride 112 mmol/L (98-107); Estimated GFR-MDRD 31; Globulin 3.2 g/dL (2.4-3.5); Glucose 234 mg/dL (70-105); Potassium 4.5 mmol/L (3.5-5.1); Protein, Total 5.8 g/dL (6.0-8.3); Sodium 139 mmol/L (136-145)
[2018-08-19] MEDS: Meperidine HCl/PF 25 MG/ML VIAL IM PRN ×3 (05:55→21:08)
[2018-08-19 06:55] LABS: #Eosinphils 0.1 thou/uL (0.0-0.7); #Lymphocytes 0.8 thou/uL (1.20-3.40); #Monocytes 0.6 thou/uL (0.11-0.59); #Neutrophils 4.5 thou/uL (1.40-6.50); %Basophils 0.4 % (0.0-1.0); %Eosinophils 0.9 % (0.0-10.0); %Monocytes 9.7 % (0.0-10.0); Hemoglobin 11.2 g/dL (12.0-16.0); Mean Corpuscular Hemoglobin 30.8 pg (27.0-31.0); Mean Corpuscular Volume 93.4 fL (78.0-98.0); Mean Platelet Volume 10.5 fL (7.4-10.4); Platelet Count 40 thou/uL (130-400); RBC Distribution Width 14.5 % (11.5-14.5); Red Blood Cell (RBC) Count 3.63 mill/uL (4.20-5.40); White Blood Cell (WBC) Count 5.9 thou/uL (4.8-10.8)
[2018-08-19 07:03] LABS: Anion Gap 17 mmol/L (10-20); BUN (Urea Nitrogen) 21 mg/dL (9.8-20.1); Calc. Creatinine Clearance 32 mL/min (70-130); Calcium 8.6 mg/dL (7.8-10.44); Carbon Dioxide 16 mmol/L (22-29); Chloride 110 mmol/L (98-107); Estimated GFR-MDRD 31; Glucose 229 mg/dL (70-105); Potassium 4.5 mmol/L (3.5-5.1); Sodium 138 mmol/L (136-145)
[2018-08-19] MEDS ORDERED: Insulin Glargine 10 UNITS in Pre-Filled Syringe 1 EACH SC SCH (09:00)
[2018-08-19] MEDS ORDERED: Enoxaparin Sodium 30 MG/0.3 ML SYRINGE SC SCH (09:00)
[2018-08-19] MEDS: Nadolol 40 MG TAB PO SCH (09:13)
--- NOTE | 2018-08-19 09:37 | PRG ---
DATE OF SERVICE: 08/19/2018 SUBJECTIVE: Ms. Gonzalez is a 58-year-old female, seen by the Renal Service for acute kidney injury on top of her chronic renal failure. She has been empirically volume repleted with slight improvement of the creatinine. She was also having metabolic acidosis and for that reason was given isotonic bicarb. Currently, we will be converting her to p.o. bicarbonate. In addition, we will continue normal saline at 100 mL/h. She was complaining of some back pain. She was complaining of weakness of the lower extremities. According to the patient, she has had an x-ray in the past, but showed no any evidence of acute fracture. Her abdominal pain is improved. She denies any chest pain or shortness of breath. OBJECTIVE: VITAL SIGNS: Blood pressure 184/79, heart rate 71, respiratory rate 16, temperature 98.2, pulse ox 93%. GENERAL: Noted to be awake, alert, supine, comfortable, not in overt distress. SKIN: Adequate turgor. HEENT: She has pinkish conjunctivae. Anicteric sclerae. No neck mass. No carotid bruits. No JVD. CHEST: No deformities. LUNGS: Clear breath sounds. No wheezing. No crackles. HEART: Normal sinus rhythm. No murmurs, gallops, or rubs. ABDOMEN: Globular. Soft, nontender. No masses. EXTREMITIES: No edema. No deformities. MEDICATIONS: Medications of August 19, 2018, was reviewed. LABORATORY DATA: Laboratories of August 19, 2018; white count 5.9, hemoglobin 11.2, sodium 138, potassium 4.5, chloride 110, carbon dioxide 16, BUN 21, creatinine 1.7, glucose 229, calcium 8.6. On August 18, 2018, BUN 25, creatinine 1.95. ASSESSMENT AND PLAN: 1. Acute kidney injury on top of her chronic renal failure, superimposed prerenal azotemia, much improved with volume repletion. Continue current management. No indication for any dialytic intervention. 2. Metabolic acidosis. Resume p.o. sodium bicarbonate 650 mg p.o. b.i.d. 3. Back pain - Most likely degenerative joint disease. We will consult Physical Therapy to determine her ability to ambulate and walk. If needed, we can do further evaluation with her back pain/lower leg weakness. 4. Hypertension. Continue current BP medications. The patient is currently on nadolol at 40 mg once a day. Overall agree with current management. Job ID: [id number]
[2018-08-19] MEDS: Sodium Bicarbonate Tab 325 MG TAB PO SCH ×3 (10:16→20:44)
[2018-08-19] MEDS ORDERED: Sodium Bicarbonate 75 MEQ in Sodium Chloride 0.45% 1,000 ML IV SCH ×2 (10:30→11:03)
[2018-08-19] MEDS ORDERED: Amlodipine 10 MG TAB PO SCH (10:30)
--- NOTE | 2018-08-19 11:06 | PDOC.PN ---
- Subjective Encounter Start Date: 08/19/18 Encounter Start Time: 11:04 Subjective: Still feeling very poorly. tolerating some oral intake. No fever or vomitin - Objective Resuscitation Status - Order Detail: 08/18/18 11:30 Resuscitation Status Routine Resuscitation Status: FULL: Full Resuscitation Vital Signs & Weight: Vital Signs (12 hours) Temp Pulse Resp BP Pulse Ox 08/19/18 08:00 99.8 F H 75 16 175/78 H 90 L 08/19/18 05:50 184/79 H 08/19/18 03:20 98.2 F 71 16 159/72 H 93 L Weight Weight 126 lb 5 oz I&O: 08/18/18 08/19/18 08/20/18 06:59 06:59 06:59 Intake Total 900 Output Total 700 Balance 200 Result Diagrams: 08/19/18 06:21 08/19/18 06:21 Additional Labs: Accuchecks 08/19/18 08/18/18 08/18/18 05:53 20:13 16:39 POC Glucose 228 H 287 H 304 H Phys Exam - Physical Examination chronically ill looking HEENT: PERRLA, moist MMs Neck: supple Respiratory: no wheezing, no rhonchi, clear to auscultation bilateral Cardiovascular: RRR soft systolic murmur noted Gastrointestinal: soft, positive bowel sounds enlarged Musculoskeletal: no edema, pulses present Neurological: non-focal, moves all 4 limbs Psychiatric: A&O x 3 Dx/Plan (1) Abnormal LFTs Code(s): R94.5 - ABNORMAL RESULTS OF LIVER FUNCTION STUDIES Status: Acute (2) Acute kidney injury Code(s): N17.9 - ACUTE KIDNEY FAILURE, UNSPECIFIED Status: Acute (3) Metabolic acidosis Code(s): E87.2 - ACIDOSIS Status: Acute (4) Cholelithiasis Code(s): K80.20 - CALCULUS OF GALLBLADDER W/O CHOLECYSTITIS W/O OBSTRUCTION Status: Chronic Qualifiers: Cholelithiasis location: gallbladder Cholecystitis presence: without cholecystitis Biliary obstruction: without biliary obstruction Qualified Code(s): K80.20 - Calculus of gallbladder without cholecystitis without obstruction (5) Cirrhosis, alcoholic Code(s): K70.30 - ALCOHOLIC CIRRHOSIS OF LIVER WITHOUT ASCITES Status: Chronic Qualifiers: Ascites presence: with ascites Qualified Code(s): K70.31 - Alcoholic cirrhosis of liver with ascites (6) DM type 2 (diabetes mellitus, type 2) Status: Chronic Qualifiers: Diabetes mellitus residential insulin use: with residential use Diabetes mellitus complication status: with hyperglycemia Qualified Code(s): E11.65 - Type 2 diabetes mellitus with hyperglycemia; Z79.4 - shampoo technician (current) use of insulin (7) HTN (hypertension) Code(s): I10 - ESSENTIAL (PRIMARY) HYPERTENSION Status: Chronic Qualifiers: Hypertension type: essential hypertension Qualified Code(s): I10 - Essential (primary) hypertension (8) Portal hypertension Code(s): K76.6 - PORTAL HYPERTENSION Status: Chronic (9) Thrombocytopenia Code(s): D69.6 - THROMBOCYTOPENIA, UNSPECIFIED Status: Chronic (10) Protein-calorie malnutrition, moderate Code(s): E44.0 - MODERATE PROTEIN-CALORIE MALNUTRITION Status: Acute (11) Failure to thrive in adult Status: Acute (12) Physical deconditioning Code(s): R53.81 - OTHER MALAISE Status: Acute (13) Abdominal pain, diffuse Code(s): R10.84 - GENERALIZED ABDOMINAL PAIN Status: Chronic (14) CKD (chronic kidney disease) stage 4, GFR 15-29 ml/min Code(s): N18.4 - CHRONIC KIDNEY DISEASE, STAGE 4 (SEVERE) Status: Chronic - Plan Continue gentle IV fluid and dietary supplements -: increase lantus to 20 units daily -: lactulose 30 gm bid. -: Get abdominal US -: PT/OT to continue. monitor CBC and CMP * .
[2018-08-19] MEDS: HumaLOG 300 UNITS/3 ML VIAL SC PRN (12:22)
--- NOTE | 2018-08-19 14:22 | ULT ---
ULTRASOUND ABDOMEN COMPLETE: DATE: 08/19/2018. HISTORY: A 58-year-old female with worsening elevated liver enzymes, and generalized abdominal pain. FINDINGS: Liver: Nodular margins and coarse, heterogeneous echotexture. Moderate amount of surrounding free fl uid. Portal vein patent with hepatopetal flow. Gallbladder: Single, approximately 12 x 5 mm mobile gallstone. Diffuse mural thickening and mural ed carlos. At the fundus, this is up to 12 mm thick. No excessive distention. No sonographic Tejeda's si gn. Common duct: 4 mm. Spleen: Enlarged. Small amount of surrounding free fluid. Pancreas: Large number of tiny echogenic foci corresponding to the tiny calcifications demonstrated o n the CT of 05/04/2019. Kidneys: Right kidney 7.5 x 3.5 x 4 cm. Left kidney 8 x 3 x 4 cm. Abdominal aorta: No aneurysm in proximal and mid portions. Distal portion obscured by shadowing from bowel gas. Inferior vena cava: Limited visualization. IMPRESSION: 1. Hepatic cirrhosis. 2. Small to moderate volume of ascites. 3. Cholelithiasis. 4. Severe mural thickening and mural edema of the gallbladder. This could be due to the hepatic dis ease, and does not necessary imply acute cholecystitis. 5. Signs of chronic pancreatitis. 6. Bilateral kidneys are small, suggestive of chronic kidney disease. Clinical correlation recommen ded. FRANCISCO Kurtz POS: [facility]
[2018-08-20 05:52] LABS: #Monocytes 0.5 thou/uL (0.11-0.59); #Neutrophils 4.4 thou/uL (1.40-6.50); %Basophils 0.2 % (0.0-1.0); %Eosinophils 0.4 % (0.0-10.0); %Lymphocytes 16.3 % (21.0-51.0); %Monocytes 8.8 % (0.0-10.0); %Neutrophils 74.4 % (42.0-75.0); Hemoglobin 10.1 g/dL (12.0-16.0); Mean Corpuscular HGB CONC 33.3 g/dL (32.0-36.0); Mean Corpuscular Hemoglobin 30.9 pg (27.0-31.0); Mean Corpuscular Volume 92.7 fL (78.0-98.0); Mean Platelet Volume 10.4 fL (7.4-10.4); Platelet Count 43 thou/uL (130-400); RBC Distribution Width 14.8 % (11.5-14.5); Red Blood Cell (RBC) Count 3.27 mill/uL (4.20-5.40)
[2018-08-20 06:05] LABS: ALT (SGPT) 10 U/L (8-55); AST (SGOT) 18 U/L (5-34); Albumin 2.4 g/dL (3.5-5.0); Alkaline Phosphatase 191 U/L (40-150); Anion Gap 17 mmol/L (10-20); BUN (Urea Nitrogen) 24 mg/dL (9.8-20.1); Bilirubin, Total 1.7 mg/dL (0.2-1.2); Calc. Creatinine Clearance 33 mL/min (70-130); Carbon Dioxide 16 mmol/L (22-29); Chloride 111 mmol/L (98-107); Estimated GFR-MDRD 32; Globulin 3.1 g/dL (2.4-3.5); Glucose 313 mg/dL (70-105); Potassium 4.4 mmol/L (3.5-5.1); Protein, Total 5.5 g/dL (6.0-8.3); Sodium 140 mmol/L (136-145)
[2018-08-20 08:02] LABS: Hemoglobin A1c 6.2 % (4.0-6.0)
[2018-08-20 08:12] LABS: Iron 46 ug/dL (50-170); Iron Binding Capacity, Total 218 mcg/dL (265-497)
--- NOTE | 2018-08-20 08:52 | PDOC.PN ---
- Subjective Encounter Start Date: 08/20/18 Encounter Start Time: 08:51 Subjective: Feeling better today. appetite and oral intake remained poor. -: having BM. No vomiting. -: Remained afebrile. - Objective Resuscitation Status - Order Detail: 08/18/18 11:30 Resuscitation Status Routine Resuscitation Status: FULL: Full Resuscitation Vital Signs & Weight: Vital Signs (12 hours) Temp Pulse Resp BP Pulse Ox 08/20/18 03:00 98.9 F 73 19 135/65 92 L 08/19/18 23:55 99.2 F Weight Weight 122 lb 9 oz I&O: 08/19/18 08/20/18 08/21/18 06:59 06:59 06:59 Intake Total 900 940 Output Total 700 200 Balance 200 740 Result Diagrams: 08/20/18 05:20 08/20/18 05:20 Additional Labs: Accuchecks 08/20/18 08/19/18 08/19/18 05:53 20:52 16:56 POC Glucose 312 H 214 H 198 H 08/19/18 11:09 POC Glucose 269 H Phys Exam - Physical Examination chronically ill looking. No acute distress HEENT: PERRLA, moist MMs Neck: no JVD, supple Respiratory: no rales, no rhonchi fair air entry bilaterally. Cardiovascular: RRR Gastrointestinal: soft, positive bowel sounds enlarged Musculoskeletal: no edema wasting of lower limbs noted. Neurological: non-focal moves limbs though weakly Psychiatric: A&O x 3 Dx/Plan (1) Acute kidney injury Code(s): N17.9 - ACUTE KIDNEY FAILURE, UNSPECIFIED Status: Acute (2) Failure to thrive in adult Status: Acute (3) Abnormal LFTs Code(s): R94.5 - ABNORMAL RESULTS OF LIVER FUNCTION STUDIES Status: Acute (4) Metabolic acidosis Code(s): E87.2 - ACIDOSIS Status: Acute (5) Cholelithiasis Code(s): K80.20 - CALCULUS OF GALLBLADDER W/O CHOLECYSTITIS W/O OBSTRUCTION Status: Chronic Qualifiers: Cholelithiasis location: gallbladder Cholecystitis presence: without cholecystitis Biliary obstruction: without biliary obstruction Qualified Code(s): K80.20 - Calculus of gallbladder without cholecystitis without obstruction (6) Cirrhosis, alcoholic Code(s): K70.30 - ALCOHOLIC CIRRHOSIS OF LIVER WITHOUT ASCITES Status: Chronic Qualifiers: Ascites presence: with ascites Qualified Code(s): K70.31 - Alcoholic cirrhosis of liver with ascites (7) DM type 2 (diabetes mellitus, type 2) Status: Chronic Qualifiers: Diabetes mellitus termite technician insulin use: with termite technician use Diabetes mellitus complication status: with hyperglycemia Qualified Code(s): E11.65 - Type 2 diabetes mellitus with hyperglycemia; Z79.4 - [facility] (current) use of insulin (8) HTN (hypertension) Code(s): I10 - ESSENTIAL (PRIMARY) HYPERTENSION Status: Chronic Qualifiers: Hypertension type: essential hypertension Qualified Code(s): I10 - Essential (primary) hypertension (9) Portal hypertension Code(s): K76.6 - PORTAL HYPERTENSION Status: Chronic (10) Thrombocytopenia Code(s): D69.6 - THROMBOCYTOPENIA, UNSPECIFIED Status: Chronic (11) Protein-calorie malnutrition, moderate Code(s): E44.0 - MODERATE PROTEIN-CALORIE MALNUTRITION Status: Acute (12) Physical deconditioning Code(s): R53.81 - OTHER MALAISE Status: Acute (13) Abdominal pain, diffuse Code(s): R10.84 - GENERALIZED ABDOMINAL PAIN Status: Chronic (14) CKD (chronic kidney disease) stage 4, GFR 15-29 ml/min Code(s): N18.4 - CHRONIC KIDNEY DISEASE, STAGE 4 (SEVERE) Status: Chronic (15) Ascites due to alcoholic cirrhosis Code(s): K70.31 - ALCOHOLIC CIRRHOSIS OF LIVER WITH ASCITES Status: Acute - Plan Continue gentle IV hydration. Start albumin infusion. -: Consider paracentesis when more stable given moderate ascitis -: Continue oral supplements -: PT to continue -: Monitor CMP * .
[2018-08-20] MEDS: Sodium Bicarbonate Tab 325 MG TAB PO SCH ×3 (09:53→20:12)
[2018-08-20] MEDS: Nadolol 40 MG TAB PO SCH (09:55)
[2018-08-20] MEDS: Amlodipine 10 MG TAB PO SCH (09:55)
[2018-08-20] MEDS: Insulin Glargine 20 UNITS in Pre-Filled Syringe 1 EACH SC SCH (09:56)
--- NOTE | 2018-08-20 09:58 | PRG ---
DATE OF SERVICE: 08/20/2018 SUBJECTIVE: Ms. Gonzalez is a 58-year-old female with known history of cirrhosis, was admitted for failure to thrive. She has been having generalized p.o. intake. She initially complained of abdominal pain, but this is much improved. Ultrasound of the abdomen was done, which showed minimal ascites and findings of cirrhosis, which is chronic in nature and cholelithiasis. This morning, she is feeling better. We are also following this patient for her acute kidney injury. She is being given volume repletion for presumed prerenal azotemia on top of her chronic renal failure. No complaints of chest pain or shortness of breath. OBJECTIVE: VITAL SIGNS: Blood pressure 135/65, heart rate 73, respiratory rate 19, temperature 98.9, and pulse ox 92%. GENERAL: The patient is awake, alert, and comfortable, not in distress. SKIN: Adequate turgor. HEENT: Slightly pale conjunctivae. Anicteric sclerae. NECK: No neck mass. No carotid bruits. No JVD. CHEST: No deformities. LUNGS: Clear breath sounds. HEART: Normal sinus rhythm. No murmur. No gallops. No rubs. ABDOMEN: Globular, soft, and nontender. No masses. EXTREMITIES: No edema. No deformities. MEDICATIONS: Medications of August 20, 2018, reviewed. LABORATORY DATA: Laboratories of August 20, 2018; white count 6, hemoglobin 10.1, sodium 140, potassium 4.4, chloride 111, carbon dioxide 16, BUN 24, creatinine 1.64, glucose 313. AST 18, ALT 10, iron 46, TIBC 218, albumin 2.4, and hemoglobin A1c 6.2. ASSESSMENT AND PLAN: 1. Acute kidney injury on top of her chronic renal failure. Stabilizing renal function. Creatinine noted at 1.64, which is improved from the initial admitting creatinine of 1.95. Continue gentle volume repletion. Encourage the patient to increase p.o. intake. There is no indication for any dialytic intervention with this patient. 2. Cirrhosis, supportive care. Currently on lactulose at 30 g p.o. b.i.d. 3. Abdominal pain, much improved. Abdominal ultrasound did not show any evidence of any acute abdomen. 4. Continue current management. Recheck basic metabolic panel and CBC in a.m. Job ID: [id number]
[2018-08-20] MEDS: HumaLOG 300 UNITS/3 ML VIAL SC PRN ×3 (10:01→20:17)
[2018-08-20] MEDS: Meperidine HCl/PF 25 MG/ML VIAL IM PRN ×2 (10:02→18:29)
[2018-08-20] MEDS: Albumin 25% 25 GM/100 ML BOT IVPB SCH ×3 (13:34→20:40)
[2018-08-21] MEDS: Meperidine HCl/PF 25 MG/ML VIAL IM PRN ×3 (00:08→17:41)
[2018-08-21] MEDS: Albumin 25% 25 GM/100 ML BOT IVPB SCH (06:01)
[2018-08-21 06:29] LABS: ALT (SGPT) 7 U/L (8-55); AST (SGOT) 16 U/L (5-34); Alkaline Phosphatase 156 U/L (40-150); Anion Gap 14 mmol/L (10-20); BUN (Urea Nitrogen) 22 mg/dL (9.8-20.1); Bilirubin, Total 1.9 mg/dL (0.2-1.2); Calc. Creatinine Clearance 34 mL/min (70-130); Calcium 8.3 mg/dL (7.8-10.44); Carbon Dioxide 19 mmol/L (22-29); Chloride 112 mmol/L (98-107); Estimated GFR-MDRD 37; Globulin 2.7 g/dL (2.4-3.5); Glucose 200 mg/dL (70-105); Potassium 3.9 mmol/L (3.5-5.1); Protein, Total 5.7 g/dL (6.0-8.3); Sodium 141 mmol/L (136-145)
[2018-08-21 07:27] LABS: #Eosinphils 0.1 thou/uL (0.0-0.7); #Monocytes 0.5 thou/uL (0.11-0.59); #Neutrophils 4.7 thou/uL (1.40-6.50); %Eosinophils 1.7 % (0.0-10.0); %Lymphocytes 15.6 % (21.0-51.0); %Monocytes 8.5 % (0.0-10.0); %Neutrophils 74.2 % (42.0-75.0); Hemoglobin 9.7 g/dL (12.0-16.0); Mean Corpuscular Hemoglobin 30.6 pg (27.0-31.0); Mean Corpuscular Volume 89.9 fL (78.0-98.0); Mean Platelet Volume 10.3 fL (7.4-10.4); Platelet Count 35 thou/uL (130-400); RBC Distribution Width 14.9 % (11.5-14.5); Red Blood Cell (RBC) Count 3.19 mill/uL (4.20-5.40); White Blood Cell (WBC) Count 6.3 thou/uL (4.8-10.8)
--- NOTE | 2018-08-21 09:54 | PDOC.PN ---
- Subjective Encounter Start Date: 08/21/18 Encounter Start Time: 09:52 Subjective: complaining of abdominal pain and abck pain associated with SOB on sitting -: Appetite and oral intate remained poor. -: had low grade fever of 100.5 earlier this morning. - Objective Resuscitation Status - Order Detail: 08/18/18 11:30 Resuscitation Status Routine Resuscitation Status: FULL: Full Resuscitation Vital Signs & Weight: Vital Signs (12 hours) Temp Pulse Resp BP Pulse Ox 08/21/18 08:00 100.5 F H 78 14 149/68 H 95 08/21/18 03:21 99.6 F 78 16 145/64 H 93 L Weight Weight 116 lb 6.4 oz I&O: 08/20/18 08/21/18 08/22/18 06:59 06:59 06:59 Intake Total 940 1370 Output Total 200 Balance 740 1370 Result Diagrams: 08/21/18 05:50 08/21/18 05:50 Additional Labs: Accuchecks 08/21/18 08/20/18 08/20/18 05:09 20:12 17:14 POC Glucose 197 H 304 H 298 H 08/20/18 10:46 POC Glucose 323 H Phys Exam - Physical Examination afebrile HEENT: PERRLA, moist MMs Neck: supple fair air entry bilaterally, decreased at the bases Cardiovascular: RRR Gastrointestinal: soft, positive bowel sounds enlarged, mild diffuse tenderness Musculoskeletal: no edema, pulses present muscle wasting noted Neurological: non-focal moves all limbs but weakly Psychiatric: A&O x 3 Dx/Plan (1) Cirrhosis, alcoholic Code(s): K70.30 - ALCOHOLIC CIRRHOSIS OF LIVER WITHOUT ASCITES Status: Chronic Qualifiers: Ascites presence: with ascites Qualified Code(s): K70.31 - Alcoholic cirrhosis of liver with ascites Comment: Abdominal size has increase associated with difficulty sitting down. (2) Acute kidney injury Code(s): N17.9 - ACUTE KIDNEY FAILURE, UNSPECIFIED Status: Acute (3) Failure to thrive in adult Status: Acute (4) Abnormal LFTs Code(s): R94.5 - ABNORMAL RESULTS OF LIVER FUNCTION STUDIES Status: Acute (5) Metabolic acidosis Code(s): E87.2 - ACIDOSIS Status: Acute (6) Cholelithiasis Code(s): K80.20 - CALCULUS OF GALLBLADDER W/O CHOLECYSTITIS W/O OBSTRUCTION Status: Chronic Qualifiers: Cholelithiasis location: gallbladder Cholecystitis presence: without cholecystitis Biliary obstruction: without biliary obstruction Qualified Code(s): K80.20 - Calculus of gallbladder without cholecystitis without obstruction (7) DM type 2 (diabetes mellitus, type 2) Status: Chronic Qualifiers: Diabetes mellitus desktop operator insulin use: with mcc use Diabetes mellitus complication status: with hyperglycemia Qualified Code(s): E11.65 - Type 2 diabetes mellitus with hyperglycemia; Z79.4 - communication center coordinator (current) use of insulin (8) HTN (hypertension) Code(s): I10 - ESSENTIAL (PRIMARY) HYPERTENSION Status: Chronic Qualifiers: Hypertension type: essential hypertension Qualified Code(s): I10 - Essential (primary) hypertension (9) Portal hypertension Code(s): K76.6 - PORTAL HYPERTENSION Status: Chronic (10) Thrombocytopenia Code(s): D69.6 - THROMBOCYTOPENIA, UNSPECIFIED Status: Chronic (11) Protein-calorie malnutrition, moderate Code(s): E44.0 - MODERATE PROTEIN-CALORIE MALNUTRITION Status: Acute (12) Physical deconditioning Code(s): R53.81 - OTHER MALAISE Status: Acute (13) Abdominal pain, diffuse Code(s): R10.84 - GENERALIZED ABDOMINAL PAIN Status: Chronic (14) CKD (chronic kidney disease) stage 4, GFR 15-29 ml/min Code(s): N18.4 - CHRONIC KIDNEY DISEASE, STAGE 4 (SEVERE) Status: Chronic (15) Ascites due to alcoholic cirrhosis Code(s): K70.31 - ALCOHOLIC CIRRHOSIS OF LIVER WITH ASCITES Status: Acute (16) Fever Code(s): R50.9 - FEVER, UNSPECIFIED Status: Acute - Plan get UA. monitor temp. Get blood cultures if fever is persistent -: Get US guided paracentesis. Do culture, cell count and albumin of fluid. -: DC crystalloid. Continue colloid. -: Start megace. Start lidocaine patch for pain -: Continue oral supplements. * .
--- NOTE | 2018-08-21 10:00 | PRG ---
DATE OF SERVICE: 08/21/2018 SUBJECTIVE: Ms. Gonzalez is a 58-year-old female with cirrhosis and chronic renal failure, seen by Renal Service for the acute kidney injury on top of her chronic renal failure. She was given volume repletion, which improved her renal function. Her renal function is near baseline. She also has some leg weakness. Physical Therapy has evaluated the patient. They were able to ambulate her for a short distance yesterday. In addition, the abdominal pain is much better. Her metabolic acidosis is being addressed. Currently, resumed back on isotonic bicarbonate. In addition, we have placed this patient on bicarbonate tablets. OBJECTIVE: VITAL SIGNS: Blood pressure is 149/68, heart rate 78, respiratory rate 14, temperature 100.5, and pulse ox 95%. GENERAL: Awake, alert, comfortable, not in overt distress. SKIN: Adequate turgor. HEENT: She has pinkish conjunctivae. Anicteric sclerae. NECK: No neck mass. No carotid bruits. No JVD. CHEST: No deformities. LUNGS: Decreased breath sounds. HEART: Normal sinus rhythm. No murmur, gallops, or rubs. ABDOMEN: Globular, soft, and nontender. No masses. EXTREMITIES: No edema. No deformities. MEDICATIONS: Medications of 08/21/2018 were reviewed. LABORATORY DATA: On 08/21/2018: White count 6.3, hemoglobin 9.7. Sodium 141, potassium 3.9, chloride 112, carbon dioxide 19, BUN 22, creatinine 1.45, and calcium 8.3. AST 16, ALT 7, and albumin is 3. ASSESSMENT AND PLAN: 1. Acute kidney injury on top of her chronic renal failure - improved. Prerenal azotemia status post volume repletion. Continue current management. No indication for any dialytic intervention. 2. Metabolic acidosis, much improved. Currently on isotonic bicarbonate. Continue p.o. sodium bicarbonate tablets. 3. Cirrhosis, supportive care. 4. Anemia - borderline. Currently, hemoglobin is 9.7. Continue to observe. White count was noted to be within normal. 5. Intermittent fever. We will observe. CBC shows a white count of only 6.3. 6. We will at least order a urinalysis. If needed, we can proceed with chest x-ray. Job ID: [id number]
[2018-08-21 10:37] LABS: INR-International Normal Ratio 1.6; PTT 41.1 SEC (22.9-36.1)
[2018-08-21] MEDS: Nadolol 40 MG TAB PO SCH (10:43)
[2018-08-21] MEDS: Sodium Bicarbonate Tab 325 MG TAB PO SCH ×3 (10:43→22:57)
[2018-08-21] MEDS: Amlodipine 10 MG TAB PO SCH (10:43)
[2018-08-21] MEDS: Lidocaine 5% Patch TD SCH (10:44)
[2018-08-21] MEDS: Insulin Glargine 20 UNITS in Pre-Filled Syringe 1 EACH SC SCH (10:45)
[2018-08-21] MEDS: HumaLOG 300 UNITS/3 ML VIAL SC PRN ×3 (10:49→22:55)
--- NOTE | 2018-08-21 18:37 | ULT ---
EXAM: ULTRASOUND GUIDED DIAGNOSTIC PARACENTESIS. 08/21/18 HISTORY: Ascites. Fever. Evaluate for possible infected peritoneal fluid. COMPARISON: None. FINDINGS: Successful ultrasound guided diagnostic paracentesis. A total of 20 mL of yellow colored ascites was aspirated. No immediate or postprocedure complication. TECHNIQUE: Consent obtained to perform an ultrasound guided paracentesis. The patient's abdomen was evaluated. T here is a small amount of intraperitoneal fluid. Request is made by Dr. Pham to perform a diagnostic p aracentesis. The right lower quadrant was deemed appropriate. Skin was prepped and draped in a steril e fashion. 1% lidocaine, buffered with sodium bicarbonate was used for local anesthesia. Under ultras ound guidance, a 22 gauge spinal needle was advanced into the peritoneal space. A total of 20 mL of y ellow color ascites was aspirated. The patient tolerated the procedure well. No immediate or postproc edure complications. IMPRESSION: Successful ultrasound guided paracentesis. POS: OFF
[2018-08-21 21:22] LABS: #Lymphocytes 1.1 thou/uL (1.20-3.40); #Monocytes 0.5 thou/uL (0.11-0.59); #Neutrophils 6.7 thou/uL (1.40-6.50); %Basophils 0.2 % (0.0-1.0); %Eosinophils 0.6 % (0.0-10.0); %Lymphocytes 13.3 % (21.0-51.0); %Monocytes 5.4 % (0.0-10.0); %Neutrophils 80.6 % (42.0-75.0); Hemoglobin 10.8 g/dL (12.0-16.0); Mean Corpuscular HGB CONC 31.9 g/dL (32.0-36.0); Mean Platelet Volume 10.6 fL (7.4-10.4); Platelet Count 55 thou/uL (130-400); RBC Distribution Width 15.1 % (11.5-14.5); Red Blood Cell (RBC) Count 3.61 mill/uL (4.20-5.40); White Blood Cell (WBC) Count 8.3 thou/uL (4.8-10.8)
[2018-08-21 21:39] LABS: BF Color Yellow; BF RBC Count - Manual 2100 /cumm; BF WBC/Nonhematics Ct. - Manua 65 /cumm; Clarity Hazy (Clear); Tube # EDTA
[2018-08-21 21:40] LABS: Body Fluid Source Peritoneal Fluid
--- NOTE | 2018-08-21 21:40 | RAD ---
Chest one view HISTORY: Dyspnea. Syncope. COMPARISON: 08/17/2018. FINDINGS: Cardiac silhouette is at by projection. Shallow inspiration accentuates pulmonary markings. Mediastinum is midline. No lobar consolidation or evidence of pneumothorax. animal technician leads overlie the chest. IMPRESSION: No active cardiopulmonary abnormalities are demonstrated.
[2018-08-21 22:12] LABS: Bilirubin Small (Negative); Clarity CLOUDY (Clear); Glucose, Urine (Dipstick) Negative (Negative); Leukocyte Trace (Negative); Nitrite Negative (Negative); Protein, Urine (Dipstick) 30 mg/dL (Neg-Trace); Specific Gravity, Urine 1.013 (1.002-1.036)
[2018-08-21 22:13] LABS: Bacteria/HPF 4+ HPF (None Seen); Hyaline Casts/LPF 4-6 HYALINE CAST LPF (0-3 Hyaline); Pathc Cast-AUWi Flag 1.76 (0-2.49); WBC/HPF 21-50 HPF (0-3)
[2018-08-21 22:15] LABS: Yeast-AUWi Flag 69.9 (0-25.0)
[2018-08-21 22:20] LABS: BF Segmented Neutrophils 22 %; Cell Count Non Hematic 50 %; Lymphocytes 28 %
[2018-08-21 22:23] LABS: ALT (SGPT) 12 U/L (8-55); AST (SGOT) 31 U/L (5-34); Albumin 3.4 g/dL (3.5-5.0); Alkaline Phosphatase 185 U/L (40-150); Anion Gap 16 mmol/L (10-20); BUN (Urea Nitrogen) 21 mg/dL (9.8-20.1); Bilirubin, Total 2.1 mg/dL (0.2-1.2); Calc. Creatinine Clearance 33 mL/min (70-130); Calcium 8.8 mg/dL (7.8-10.44); Carbon Dioxide 20 mmol/L (22-29); Chloride 110 mmol/L (98-107); Estimated GFR-MDRD 36; Globulin 2.9 g/dL (2.4-3.5); Glucose 246 mg/dL (70-105); Potassium 3.6 mmol/L (3.5-5.1); Protein, Total 6.3 g/dL (6.0-8.3); Sodium 142 mmol/L (136-145)
[2018-08-21 22:25] LABS: Blood, Urine Small (Negative); Yeast-All Forms None Seen HPF (None Seen)
[2018-08-21] MEDS: Acetaminophen 325 MG TAB PO SCH (22:55)
[2018-08-21] MEDS: Lidocaine Patch Removal 1 EACH TOP SCH (22:58)
[2018-08-22] MEDS ORDERED: cefTRIAXone\\ROCEPHIN 1 GM in Sodium Chloride 0.9% 100 ML IVPB SCH ×2 (00:30→14:30)
[2018-08-22] MEDS: Acetaminophen 325 MG TAB PO SCH ×3 (05:10→17:11)
[2018-08-22 05:35] LABS: ALT (SGPT) 12 U/L (8-55); AST (SGOT) 32 U/L (5-34); Albumin 3.1 g/dL (3.5-5.0); Alkaline Phosphatase 180 U/L (40-150); Anion Gap 15 mmol/L (10-20); BUN (Urea Nitrogen) 24 mg/dL (9.8-20.1); Bilirubin, Total 2.3 mg/dL (0.2-1.2); Calc. Creatinine Clearance 34 mL/min (70-130); Calcium 8.5 mg/dL (7.8-10.44); Carbon Dioxide 20 mmol/L (22-29); Chloride 110 mmol/L (98-107); Estimated GFR-MDRD 37; Globulin 2.6 g/dL (2.4-3.5); Glucose 192 mg/dL (70-105); Potassium 3.1 mmol/L (3.5-5.1); Protein, Total 5.7 g/dL (6.0-8.3); Sodium 142 mmol/L (136-145)
[2018-08-22 05:46] LABS: Band 33 % (5-11); Hemoglobin 10.3 g/dL (12.0-16.0); Lymphocytes 3 % (21-51); MDiff Complete? YES; Mean Corpuscular HGB CONC 33.7 g/dL (32.0-36.0); Mean Corpuscular Hemoglobin 31.1 pg (27.0-31.0); Mean Corpuscular Volume 92.1 fL (78.0-98.0); Mean Platelet Volume 10.3 fL (7.4-10.4); Metamyelocyte 2 % (0-0); Monocytes 4 % (0-10); Neutrophil 58 % (42-75); Platelet Count 43 thou/uL (130-400); Platelet Morphology Comment Appears Decreased; RBC Distribution Width 15.7 % (11.5-14.5); Red Blood Cell (RBC) Count 3.31 mill/uL (4.20-5.40); White Blood Cell (WBC) Count 15.8 thou/uL (4.8-10.8)
--- NOTE | 2018-08-22 08:44 | PDOC.PN ---
- Subjective Encounter Start Date: 08/22/18 Encounter Start Time: 08:43 Subjective: Developed fever and tachypnea yesterday. Started on antibiotic -: Had diagnostic paracentesis -: Feeling better today. Still having abdominal pain. - Objective Resuscitation Status - Order Detail: 08/18/18 11:30 Resuscitation Status Routine Resuscitation Status: FULL: Full Resuscitation Vital Signs & Weight: Vital Signs (12 hours) Temp Temp Temp Pulse Pulse Pulse Pulse 08/22/18 08:00 98.1 F 70 08/22/18 04:00 98.5 F 69 08/22/18 00:00 101.4 F H 81 08/21/18 21:15 08/21/18 21:00 101.3 F H 102.5 F H 84 82 82 08/21/18 20:48 101.3 F H 83 Resp Resp Resp Resp BP BP BP 08/22/18 08:00 18 08/22/18 04:00 20 08/22/18 00:00 24 H 08/21/18 21:15 08/21/18 21:00 32 H 28 H 28 H 160/78 H 150/70 H 152/71 H 08/21/18 20:48 30 H BP Pulse Ox Pulse Ox Pulse Ox Pulse Ox 08/22/18 08:00 121/57 L 94 L 08/22/18 04:00 109/52 L 94 L 08/22/18 00:00 115/58 L 97 08/21/18 21:15 94 L 08/21/18 21:00 92 L 94 L 95 08/21/18 20:48 170/75 H 97 Weight Weight 117 lb 1.6 oz I&O: 08/21/18 08/22/18 08/23/18 06:59 06:59 06:59 Intake Total 1370 630 Output Total 30 Balance 1370 600 Result Diagrams: 08/22/18 04:35 08/22/18 04:35 Additional Labs: Accuchecks 08/22/18 08/21/18 08/21/18 05:41 21:03 20:43 POC Glucose 210 H 229 H 261 H 08/21/18 08/21/18 17:54 10:42 POC Glucose 232 H 256 H Phys Exam - Physical Examination Constitutional: NAD chronically ill looking. HEENT: PERRLA, moist MMs Neck: supple Respiratory: no wheezing, no rhonchi, clear to auscultation bilateral Cardiovascular: RRR soft systolic murmur noted Gastrointestinal: soft, no distention, positive bowel sounds enlarged, mild diffuse tenderness Musculoskeletal: no edema, pulses present muscle wasting noted Neurological: non-focal, moves all 4 limbs Psychiatric: A&O x 3 Dx/Plan (1) Sepsis Code(s): A41.9 - SEPSIS, UNSPECIFIED ORGANISM Status: Acute Comment: Source of infection is unclear.? UTI/pyelonephritis. Peritonitis unlikely with unremarkable asciticfluid cell count. Awaiting blood, asciticfluid and urine cultures (2) UTI (urinary tract infection) Status: Acute (3) Cirrhosis, alcoholic Code(s): K70.30 - ALCOHOLIC CIRRHOSIS OF LIVER WITHOUT ASCITES Status: Chronic Qualifiers: Ascites presence: with ascites Qualified Code(s): K70.31 - Alcoholic cirrhosis of liver with ascites Comment: Abdominal size has increase associated with difficulty sitting down. (4) Acute kidney injury Code(s): N17.9 - ACUTE KIDNEY FAILURE, UNSPECIFIED Status: Acute Comment: Improved with IVF (5) Failure to thrive in adult Status: Acute (6) Abnormal LFTs Code(s): R94.5 - ABNORMAL RESULTS OF LIVER FUNCTION STUDIES Status: Acute (7) Metabolic acidosis Code(s): E87.2 - ACIDOSIS Status: Acute Comment: Improiving with alkali treatment (8) Cholelithiasis Code(s): K80.20 - CALCULUS OF GALLBLADDER W/O CHOLECYSTITIS W/O OBSTRUCTION Status: Chronic Qualifiers: Cholelithiasis location: gallbladder Cholecystitis presence: without cholecystitis Biliary obstruction: without biliary obstruction Qualified Code(s): K80.20 - Calculus of gallbladder without cholecystitis without obstruction Comment: Evaluation in the past with HIDA and MRCP were unremarkable (9) DM type 2 (diabetes mellitus, type 2) Status: Chronic Qualifiers: Diabetes mellitus termination clerk insulin use: with termination clerk use Diabetes mellitus complication status: with hyperglycemia Qualified Code(s): E11.65 - Type 2 diabetes mellitus with hyperglycemia; Z79.4 - termination clerk (current) use of insulin Comment: Glycemic control improving with insulin therapy (10) HTN (hypertension) Code(s): I10 - ESSENTIAL (PRIMARY) HYPERTENSION Status: Chronic Qualifiers: Hypertension type: essential hypertension Qualified Code(s): I10 - Essential (primary) hypertension (11) Portal hypertension Code(s): K76.6 - PORTAL HYPERTENSION Status: Chronic (12) Thrombocytopenia Code(s): D69.6 - THROMBOCYTOPENIA, UNSPECIFIED Status: Chronic (13) Protein-calorie malnutrition, moderate Code(s): E44.0 - MODERATE PROTEIN-CALORIE MALNUTRITION Status: Acute Comment : On dietary supplement and megace (14) Physical deconditioning Code(s): R53.81 - OTHER MALAISE Status: Acute (15) Abdominal pain, diffuse Code(s): R10.84 - GENERALIZED ABDOMINAL PAIN Status: Chronic Comment: Improving with analgesic. (16) CKD (chronic kidney disease) stage 4, GFR 15-29 ml/min Code(s): N18.4 - CHRONIC KIDNEY DISEASE, STAGE 4 (SEVERE) Status: Chronic (17) Ascites due to alcoholic cirrhosis Code(s): K70.31 - ALCOHOLIC CIRRHOSIS OF LIVER WITH ASCITES Status: Acute Comment: S/p diagnostic paracentesis. No peritonitis (18) Fever Code(s): R50.9 - FEVER, UNSPECIFIED Status: Acute - Plan Continue Rocephin. -: Await urine, blood and asciticfluid cultures -: Hold amlodipine due to soft BP. -: Start LR at 50 cc/hr -: Replete serum potassium. increase activity. * .
[2018-08-22] MEDS: Lactated Ringer's 1,000 ML IV SCH (08:55)
[2018-08-22] MEDS: Lidocaine 5% Patch TD SCH (09:02)
--- NOTE | 2018-08-22 10:24 | CT ---
EXAM: CT Abdomen Pelvis WO Con PROVIDED CLINICAL HISTORY: Abdominal pain and fever COMPARISON: 07/05/2018 FINDINGS: The visualized lung bases are free of significant opacity. Trace right pleural fluid. Peripheral nodular contour of the liver compatible with cirrhosis. Splenomegaly is redemonstrated homer suring about 15 cm in cranial caudal dimension. Multiple pancreatic calcifications are redemonstrated. The solid abdominal organs are suboptimally evaluated in the absence of IV contrast m aterial but demonstrate an otherwise unremarkable CT appearance. There is moderate volume free intraperitoneal fluid presumably reflecting ascites. There is no eviden ce for bowel obstruction. Evaluation for inflammatory fat stranding is limited. There is no evidence for free air. Incompletely evaluated left adnexal mass measuring about 3.1 cm. Lytic changes are seen involving the endplates about the L3-4 intervertebral disc space. There is niles rounding soft tissue stranding. Vascular calcifications are noted. IMPRESSION: 1. Endplate lytic change about L3-4 suspicious for discitis-osteomyelitis. Findings discussed with [facility] nurse caring for the patient 10:22 AM 08/22/2018. 2. Hepatic cirrhosis and portal hypertension with moderate volume ascites. 3. Other chronic findings as above.
[2018-08-22] MEDS: Sodium Bicarbonate Tab 325 MG TAB PO SCH ×3 (10:42→20:10)
[2018-08-22] MEDS: Nadolol 40 MG TAB PO SCH (10:43)
[2018-08-22] MEDS: Insulin Glargine 20 UNITS in Pre-Filled Syringe 1 EACH SC SCH (10:45)
[2018-08-22] MEDS: Megestrol Acetate 800 MG/20 ML UDCUP PO SCH (10:46)
--- NOTE | 2018-08-22 10:53 | PRG ---
DATE OF SERVICE: SUBJECTIVE: Ms. Gonzalez is a 58-year-old female, followed up by the Renal Service for acute kidney injury on top of chronic renal failure. She was felt to be volume depleted. For that reason, she received IV hydration. Doing well overall. However, the patient has been having fever. She has been scheduled for CT scan of the abdomen. Urinalysis was done on August 21, 2018, and it was positive for bacteria, and in addition, the patient has some white cells. Urine culture will be ordered for today. In addition, the patient is receiving IV ceftriaxone for the said UTI. No complaints of chest pain or shortness of breath. OBJECTIVE: VITAL SIGNS: Blood pressure is 121/57, heart rate 70, respiratory rate 18, temperature 98.1, pulse ox 94%, and T-max of 101.4. GENERAL: Awake, alert, comfortable, not in distress. SKIN: Adequate turgor. HEENT: She has pinkish conjunctivae. Anicteric sclerae. NECK: No neck mass. No carotid bruits. No JVD. CHEST: No deformities. LUNGS: Clear breath sounds. HEART: Normal sinus rhythm. No murmur. No gallops or rubs. ABDOMEN: Globular, soft, and nontender. No masses. EXTREMITIES: No edema. No deformities. MEDICATIONS: Medications of August 22, 2018, were reviewed. LABORATORY DATA: Laboratories of August 22, 2018; white count 15.8 and hemoglobin 10.3. Sodium 142, potassium 3.1, chloride 110, carbon dioxide 20, BUN 24, creatinine 1.46, and glucose 192. AST 32, ALT 12, and albumin 3.1. ASSESSMENT AND PLAN: 1. Metabolic acidosis - improving. Currently, on sodium bicarbonate tablets. 2. Urinary tract infection - on empiric IV antibiotics. 3. Abdominal discomfort, for a planned CT scan of the abdomen. 4. Acute kidney injury on top of her chronic renal failure. Stabilizing renal function. No indication for any dialytic intervention. Creatinine now is noted at 1.46, which is near baseline. 5. Recheck basic metabolic and CBC in a.m. Job ID: [id number]
[2018-08-22] MEDS: Vancomycin HCl 750 MG in Sodium Chloride 0.9% 250 ML 250 ML IVPB SCH (16:46)
[2018-08-22] MEDS: Meperidine HCl/PF 25 MG/ML VIAL IM PRN (17:13)
[2018-08-22] MEDS: HumaLOG 300 UNITS/3 ML VIAL SC PRN (18:30)
[2018-08-22] MEDS: Lidocaine Patch Removal 1 EACH TOP SCH (19:55)
[2018-08-22] MEDS ORDERED: HumaLOG 300 UNITS/3 ML VIAL SC PRN (20:56)
[2018-08-22] MEDS: cefTRIAXone\\ROCEPHIN 2 GM in Sodium Chloride 0.9% 100 ML IVPB SCH (23:59)
[2018-08-23] MEDS: Acetaminophen 325 MG TAB PO SCH ×4 (00:02→17:18)
[2018-08-23] MEDS: Meperidine HCl/PF 25 MG/ML VIAL IM PRN ×2 (00:20→17:13)
[2018-08-23 08:01] LABS: #Eosinphils 0.1 thou/uL (0.0-0.7); #Monocytes 0.4 thou/uL (0.11-0.59); #Neutrophils 5.8 thou/uL (1.40-6.50); %Basophils 0.3 % (0.0-1.0); %Eosinophils 1.3 % (0.0-10.0); %Lymphocytes 13.1 % (21.0-51.0); %Monocytes 5.7 % (0.0-10.0); %Neutrophils 79.6 % (42.0-75.0); Anisocytosis MODERATE=16-30 cells (100X) (0-5/hpf); Hemoglobin 9.5 g/dL (12.0-16.0); MDiff Complete? YES; Mean Corpuscular HGB CONC 31.7 g/dL (32.0-36.0); Mean Corpuscular Hemoglobin 30.7 pg (27.0-31.0); Mean Corpuscular Volume 96.8 fL (78.0-98.0); Mean Platelet Volume 12.3 fL (7.4-10.4); Platelet Count 28 thou/uL (130-400); Platelet Morphology Comment Appears Decreased; RBC Distribution Width 16.2 % (11.5-14.5); White Blood Cell (WBC) Count 7.3 thou/uL (4.8-10.8)
[2018-08-23 08:09] LABS: ALT (SGPT) 11 U/L (8-55); AST (SGOT) 18 U/L (5-34); Albumin 2.5 g/dL (3.5-5.0); Alkaline Phosphatase 136 U/L (40-150); Anion Gap 14 mmol/L (10-20); BUN (Urea Nitrogen) 27 mg/dL (9.8-20.1); Calc. Creatinine Clearance 34 mL/min (70-130); Carbon Dioxide 19 mmol/L (22-29); Chloride 113 mmol/L (98-107); Estimated GFR-MDRD 35; Globulin 2.5 g/dL (2.4-3.5); Glucose 166 mg/dL (70-105); Potassium 4.4 mmol/L (3.5-5.1); Sodium 142 mmol/L (136-145)
[2018-08-23] MEDS: Sodium Bicarbonate Tab 325 MG TAB PO SCH ×3 (08:36→21:14)
[2018-08-23] MEDS: Megestrol Acetate 800 MG/20 ML UDCUP PO SCH (08:37)
[2018-08-23] MEDS: Lactated Ringer's 1,000 ML IV SCH ×3 (08:44→21:12)
[2018-08-23] MEDS: Insulin Glargine 30 UNITS in Pre-Filled Syringe SC SCH (08:44)
[2018-08-23] MEDS ORDERED: Gadobenate Dimeglumine 529 MG/1 ML (20ML VIAL) ONE (09:34)
[2018-08-23] MEDS: Nadolol 40 MG TAB PO SCH (10:14)
[2018-08-23] MEDS: Lidocaine 5% Patch TD SCH (10:39)
--- NOTE | 2018-08-23 11:47 | PRG ---
DATE OF SERVICE: 08/23/2018 SUBJECTIVE: Ms. Gonzalez is a 58-year-old female, followed up by the Renal Service for acute kidney injury on top of her chronic renal failure. Renal function has stabilized with volume repletion. She does complain of back pain. She tells me she had it evaluated at [facility], was told to have a fracture ?. However, on August 22, 2018, a CT scan of the abdomen and pelvis noted endplate lytic change above the L3-L4 suspicious for diskitis/osteomyelitis. For that reason, we will do an MRI with contrast. I feel that she will tolerate these in a background of a mild renal insufficiency. No other complaints. No chest pain. No shortness of breath. Still with some degree of back pain. OBJECTIVE: VITAL SIGNS: Blood pressure 106/55, heart rate 61, respiratory rate 18, temperature 98.2, and pulse ox 97%. GENERAL: Noted to be awake, alert, and comfortable, not in distress. SKIN: Adequate turgor. HEENT: Pinkish conjunctivae. Anicteric sclerae. No neck mass. No carotid bruits. No JVD. CHEST: No deformities. LUNGS: Clear breath sounds. HEART: Normal sinus rhythm. No murmurs, gallops, or rubs. ABDOMEN: Globular, soft, nontender. No masses. EXTREMITIES: No edema. No deformities. MEDICATIONS: Medications of August 23, 2018, was reviewed. LABORATORY DATA: Laboratories of August 23, 2018; white count 7.3, and hemoglobin 9.5. Sodium 142, potassium 4.4, chloride 103, carbon dioxide 19, BUN 27, and creatinine 1.51. Blood SECURITY INSTALLATION TECHNICIAN of August 21, 2018; grew alpha gram-positive - alpha strep. ASSESSMENT/PLAN: 1. Bacteremia-currently on IV vancomycin. 2. Urinary tract infection, on IV ceftriaxone. 3. Chronic low back [id number] with and without contrast has been ordered. 4. Acute kidney injury/chronic renal failure, stable. Continue current management. Continue IV volume repletion with this patient. 5. Metabolic acidosis, currently on sodium bicarbonate tablets. 6. Agree with current management. Recheck base met and CBC in a.m. Job ID: [id number]
--- NOTE | 2018-08-23 12:07 | PDOC.PN ---
- Subjective Encounter Start Date: 08/23/18 Encounter Start Time: 08:05 Subjective: Reported feeling better. Fever has subsided. -: Oral intake is improving - Objective Resuscitation Status - Order Detail: 08/18/18 11:30 Resuscitation Status Routine Resuscitation Status: FULL: Full Resuscitation Vital Signs & Weight: Vital Signs (12 hours) Temp Pulse Resp BP BP Pulse Ox 08/23/18 10:08 67 108/53 L 08/23/18 08:30 98.2 F 61 18 106/55 L 97 08/23/18 04:00 98.9 F 59 L 20 107/51 L 96 08/23/18 00:18 59 L 115/57 L Weight Weight 121 lb 6.4 oz I&O: 08/22/18 08/23/18 08/24/18 06:59 06:59 06:59 Intake Total 630 750 Output Total 30 Balance 600 750 Result Diagrams: 08/23/18 07:06 08/23/18 07:06 Additional Labs: Accuchecks 08/23/18 08/23/18 08/22/18 11:42 05:10 20:19 POC Glucose 213 H 171 H 242 H 08/22/18 16:56 POC Glucose 248 H Phys Exam - Physical Examination Constitutional: NAD HEENT: PERRLA, moist MMs Neck: no JVD, supple Respiratory: no wheezing, no rales, no rhonchi fair air entry bilateraly Cardiovascular: RRR Gastrointestinal: soft, no distention, positive bowel sounds mild diffuse tendeness especially right upper quadrant Musculoskeletal: no edema Neurological: non-focal, moves all 4 limbs Psychiatric: A&O x 3 Dx/Plan (1) Sepsis Code(s): A41.9 - SEPSIS, UNSPECIFIED ORGANISM Status: Acute Comment: Source of infection is unclear.? UTI/pyelonephritis. Peritonitis unlikely with unremarkable asciticfluid cell count. Awaiting blood, asciticfluid and urine cultures (2) UTI (urinary tract infection) Status: Acute (3) Cirrhosis, alcoholic Code(s): K70.30 - ALCOHOLIC CIRRHOSIS OF LIVER WITHOUT ASCITES Status: Chronic Qualifiers: Ascites presence: with ascites Qualified Code(s): K70.31 - Alcoholic cirrhosis of liver with ascites Comment: Abdominal size has increase associated with difficulty sitting down. (4) Acute kidney injury Code(s): N17.9 - ACUTE KIDNEY FAILURE, UNSPECIFIED Status: Acute Comment: Improved with IVF (5) Failure to thrive in adult Status: Acute (6) Abnormal LFTs Code(s): R94.5 - ABNORMAL RESULTS OF LIVER FUNCTION STUDIES Status: Acute (7) Metabolic acidosis Code(s): E87.2 - ACIDOSIS Status: Acute Comment: Improiving with alkali treatment (8) Cholelithiasis Code(s): K80.20 - CALCULUS OF GALLBLADDER W/O CHOLECYSTITIS W/O OBSTRUCTION Status: Chronic Qualifiers: Cholelithiasis location: gallbladder Cholecystitis presence: without cholecystitis Biliary obstruction: without biliary obstruction Qualified Code(s): K80.20 - Calculus of gallbladder without cholecystitis without obstruction Comment: Evaluation in the past with HIDA and MRCP were unremarkable (9) DM type 2 (diabetes mellitus, type 2) Status: Chronic Qualifiers: Diabetes mellitus [facility] insulin use: with [facility] use Diabetes mellitus complication status: with hyperglycemia Qualified Code(s): E11.65 - Type 2 diabetes mellitus with hyperglycemia; Z79.4 - intermediate manager (current) use of insulin Comment: Glycemic control improving with insulin therapy (10) HTN (hypertension) Code(s): I10 - ESSENTIAL (PRIMARY) HYPERTENSION Status: Chronic Qualifiers: Hypertension type: essential hypertension Qualified Code(s): I10 - Essential (primary) hypertension (11) Portal hypertension Code(s): K76.6 - PORTAL HYPERTENSION Status: Chronic (12) Thrombocytopenia Code(s): D69.6 - THROMBOCYTOPENIA, UNSPECIFIED Status: Chronic (13) Protein-calorie malnutrition, moderate Code(s): E44.0 - MODERATE PROTEIN-CALORIE MALNUTRITION Status: Acute Comment : On dietary supplement and megace (14) Physical deconditioning Code(s): R53.81 - OTHER MALAISE Status: Acute (15) Abdominal pain, diffuse Code(s): R10.84 - GENERALIZED ABDOMINAL PAIN Status: Chronic Comment: Improving with analgesic. (16) CKD (chronic kidney disease) stage 4, GFR 15-29 ml/min Code(s): N18.4 - CHRONIC KIDNEY DISEASE, STAGE 4 (SEVERE) Status: Chronic (17) Ascites due to alcoholic cirrhosis Code(s): K70.31 - ALCOHOLIC CIRRHOSIS OF LIVER WITH ASCITES Status: Acute Comment: S/p diagnostic paracentesis. No peritonitis (18) Fever Code(s): R50.9 - FEVER, UNSPECIFIED Status: Acute (19) Alpha-hemolytic Streptococcus positive urine culture Code(s): R82.79 - OTHER ABNORMAL FINDINGS ON MICROBIOLOG EXAMINATION OF URINE Status: Acute (20) Gram-positive cocci bacteremia Code(s): R78.81 - BACTEREMIA Status: Acute (21) Discitis of lumbar region Code(s): M46.46 - DISCITIS, UNSPECIFIED, LUMBAR REGION Status: Acute - Plan Continjue broad spectrum antibiotic with vanc and ceftriaxone -: Get MRI of the back -: Continue other treatments. -: increase lantus. -: Continue low rate IVF and monitor renal function. * .
[2018-08-23] MEDS: HumaLOG 300 UNITS/3 ML VIAL SC PRN ×2 (12:15→18:10)
--- NOTE | 2018-08-23 13:59 | MRI ---
MRI LUMBAR SPINE WITH AND WITHOUT CONTRAST: Date: 08/23/18 INDICATION: Severe localized back pain after lifting a TV. COMPARISON: CT abdomen and pelvis dated 08/22/18. FINDINGS: The prominent end plate erosive change at L3-[address] is confirmed on the MR examinatio n with diffuse abnormal signal involving the L3 and L4 vertebra with associated enhancement consisten t with changes of diskitis/osteomyelitis. There is a left paraspinal psoas abscess measuring 1.8 cm in its greatest axial dimension. This is di fficult to characterize in its greatest craniocaudad dimension. T here is mild soft tissue thickening seen within the anterior epidural space at L3-4. There is a suspe cted paracentral protrusion at L3-4 causing mild central canal narrowing. There is mild bilateral chris ral foraminal narrowing due to disc degenerative disease and facet osteoarthrosis. No definite epidural abscess is grossly evident. At L5-S1, there is a broad based bulge with facet hypertrophy inducing mild right neural foraminal na rrowing. At L4-5, there is a broad based bulge with facet joint degenerative change inducing at least mild katia ateral neural foraminal narrowing. At the L2-3 level, there is a broad based bulge with no appreciable central canal or neural foraminal narrowing. At L1-2, there is no appreciable central canal or neural foraminal narrowing. At T12-L1, there is no appreciable central canal or neural foraminal narrowing. IMPRESSION: 1. The previously described diskitis/osteomyelitis at L3-[address] of abdomen and pelvis is confir med on this examination. There is demonstration of a left psoas abscess measuring 1.8 cm. This extend s from approximately the L3-4 level to the level of the L5-S1 level. No definite epidural abscess is evident. There is some mild soft tissue thickening involving the anterior epidural space with some di sc degenerative disease at L3-4 causing mild central canal narrowing and mild bilateral neural forami nal narrowing. 2. Multilevel spondylosis of the lumbar spine. POS: BH
[2018-08-23] MEDS: Vancomycin HCl 750 MG in Sodium Chloride 0.9% 250 ML 250 ML IVPB SCH (15:35)
--- NOTE | 2018-08-23 19:03 | CON ---
DATE OF CONSULTATION: 08/23/2018 REASON FOR CONSULTATION: Bacteremia and back pain. HISTORY OF PRESENT ILLNESS: A 58-year-old, known to me from prior visit when she presented with a history of alcoholism and cirrhosis with portal hypertension as well as type 2 diabetes mellitus. At that time, she had an ESBL E coli bacteremia. The next admission was this year in June when she presented with abdominal pain, mildly dilated CBD and pancreatic duct. She had an abdominal MRI which showed cholelithiasis but no choledocholithiasis, splenomegaly. An ultrasound of pelvis which showed hyperechoic mass in the left adnexa, cirrhotic morphology of liver, stable cholelithiasis. She was discharged on nadolol, spironolactone, lactulose , Levemir insulin, Lasix, and colestipol. Now 2 months later, she is admitted with weakness. She also had abdominal pain which is diffuse. The patient recalls having what she describes as a fall and syncopal event at home a few days before which led her to be brought to the emergency room. She was evaluated and released when she continued to have problems and then went to [facility] to get checked was admitted for one day reportedly, full and then discharged, and now she is back in the hospital, admitted on 08/18/2018. PHYSICAL EXAMINATION: VITAL SIGNS: BP 170/95, pulse 95, respirations 18, temperature 99, O2 saturation 96%. GENERAL: Appeared frail, but in no acute distress. LUNGS: Clear. HEART: Normal. ABDOMEN: Diffusely tender. LABORATORY DATA: Initial labs; white cell count 5.9, hemoglobin 11, platelets 40,000 with 76% neutrophils. Sodium 140, creatinine 1.64 which is close to her baseline, bilirubin 1.7, transaminases normal, alkaline phosphatase 191, albumin 2.4. Urinalysis with 21 to 50 wbc's. She had a paracentesis which showed 65 WBCs and albumin of 0.4. She had an abdomen and pelvis CT and this demonstrated lytic changes L3-L4 suspicious for diskitis, osteomyelitis, and then portal hypertension with moderate volume ascites. The lumbar MRI was completed today and it demonstrated confirmed L3-L4 diskitis osteomyelitis with a left psoas abscess. Currently, she is awake. She is complaining of abdominal pain mostly and back pain around the lumbosacral area. This back pain has 21been there for about 2 months now. No headaches. No visual symptoms, sore throat, odynophagia, dysphagia. No cough or dyspnea. No chest pain. No dysuria. No joint symptoms or neurological symptoms. PAST MEDICAL HISTORY: Alcoholism, cirrhosis, portal hypertension, type 2 diabetes, nephrolithiasis, depression. She had a transient renal insufficiency with end- stage manifestation. An AV fistula was created in the left arm. FAMILY HISTORY: Noncontributory. 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 Denies any current alcoholic beverage use. No smoking. ALLERGIES: MORPHINE, BENADRYL. CURRENT MEDICATIONS: 1. Tylenol. 2. Ceftriaxone. 3. Insulin. 4. Lactulose. 5. Meperidine. 6. Zofran. 7. Vancomycin. PHYSICAL EXAMINATION: VITAL SIGNS: T-max 101.4, blood pressure 113/51, pulse 66, respirations 19, O2 sat 94%. SKIN: Shows spider angiomata in the anterior chest area. Peripheral IV access. Voiding in the toilet. No lymphadenopathy. HEENT: Ocular movements conjugate. Sclerae white. Pupils are equal. Oral cavity with numerous missing teeth. No gum disease. Otitis. No other lesions. NECK: Supple. No jugular venous distention or carotid bruits. No thyromegaly. LUNGS: Symmetric air entry. No crackles or wheezing. HEART: S1, S2. Regular rate without murmurs. No S3 or S4. ABDOMEN: Moderately distended, diffusely tender. No rebound tenderness. Moderate ascites. No bladder distention. MUSCULOSKELETAL: No joint inflammatory activity. No edema. Pulses; dorsalis pedis 1+, popliteal 1+. Moves all extremities equally. Cap refill normal. NEUROLOGIC: Awake, alert, oriented, follows commands. Speech is normal. LABORATORY DATA: Followup labs; white cell count went up to 15, now 7.3, hemoglobin 9.5, MCV 96, platelets 28,600, 79% neutrophils. Creatinine 1.64 and now 1.51, 2 sets of blood cultures with alpha strep, not strep pneumoniae. Urine culture with alpha strep as well. Ascites fluid culture no growth thus far. ASSESSMENT: 1. Alcoholism with liver cirrhosis and portal hypertension. 2. Chronic abdominal pain. 3. Chronic back pain. 4. Bacteremia due to alpha strep. 5. Lumbosacral discitis DISCUSSION: The patient has probable radiculopathy causing the abdominal symptoms since her peritoneal fluid does not meet criteria for SBP. Continue Rocephin for protracted period of time around 6 weeks. We will need placement of IV access either Mattson catheter or PICC line. Probably Mattson catheter since she will eventually develop end-stage renal disease and will need her arm veins for access. The treatment to be arranged either at home or in the infusion area in the hospital. She does have a psoas abscess and I do not think it needs to be aspirated or drained at this point in time. Follow up imaging studies down the road with a repeat MRI. Followup CRP and labs. Job ID: [id number] [facility]
[2018-08-23] MEDS: Lidocaine Patch Removal 1 EACH TOP SCH (21:16)
[2018-08-24] MEDS: Acetaminophen 325 MG TAB PO SCH ×5 (01:16→23:26)
[2018-08-24] MEDS: cefTRIAXone\\ROCEPHIN 2 GM in Sodium Chloride 0.9% 100 ML IVPB SCH (01:31)
[2018-08-24] MEDS: Meperidine HCl/PF 25 MG/ML VIAL IM PRN ×3 (02:26→21:07)
[2018-08-24] MEDS: Lactated Ringer's 1,000 ML IV SCH ×2 (05:30→15:33)
[2018-08-24 07:05] LABS: #Eosinphils 0.1 thou/uL (0.0-0.7); #Lymphocytes 1.4 thou/uL (1.20-3.40); #Monocytes 0.6 thou/uL (0.11-0.59); #Neutrophils 5.2 thou/uL (1.40-6.50); %Basophils 0.3 % (0.0-1.0); %Eosinophils 1.2 % (0.0-10.0); %Lymphocytes 18.9 % (21.0-51.0); %Monocytes 7.9 % (0.0-10.0); %Neutrophils 71.7 % (42.0-75.0); Mean Corpuscular Hemoglobin 30.4 pg (27.0-31.0); Mean Corpuscular Volume 92.1 fL (78.0-98.0); Mean Platelet Volume 11.3 fL (7.4-10.4); Platelet Count 37 thou/uL (130-400); RBC Distribution Width 15.9 % (11.5-14.5); Red Blood Cell (RBC) Count 3.28 mill/uL (4.20-5.40); White Blood Cell (WBC) Count 7.2 thou/uL (4.8-10.8)
[2018-08-24 07:08] LABS: Anion Gap 14 mmol/L (10-20); BUN (Urea Nitrogen) 27 mg/dL (9.8-20.1); Calc. Creatinine Clearance 39 mL/min (70-130); Calcium 8.3 mg/dL (7.8-10.44); Carbon Dioxide 17 mmol/L (22-29); Chloride 115 mmol/L (98-107); Estimated GFR-MDRD 40; Glucose 171 mg/dL (70-105); Potassium 4.3 mmol/L (3.5-5.1); Sodium 142 mmol/L (136-145)
[2018-08-24] MEDS: Insulin Glargine 30 UNITS in Pre-Filled Syringe SC SCH (09:11)
[2018-08-24] MEDS: Megestrol Acetate 800 MG/20 ML UDCUP PO SCH (09:12)
[2018-08-24] MEDS: Sodium Bicarbonate Tab 325 MG TAB PO SCH ×3 (09:13→21:03)
[2018-08-24] MEDS: Nadolol 40 MG TAB PO SCH (09:13)
--- NOTE | 2018-08-24 09:16 | PRG ---
DATE OF SERVICE: 08/24/2018 SUBJECTIVE: Ms. Gonzalez is a 58-year-old female followed up by the Renal Service for acute kidney injury on top of chronic renal failure. Renal function has been doing stable. She continues to be volume repleted. In the interim, an MRI of the lumbosacral spine was done, which confirmed the diagnosis of osteomyelitis, diskitis of the lumbosacral area. ID consultation has been done with Dr. Joyner. The patient is now currently on IV antibiotics. The patient voices no new complaints. No chest pain or shortness of breath. OBJECTIVE: VITAL SIGNS: Blood pressure 148/72, heart rate 72, respiratory rate 19, temperature 98.9, and pulse ox 96%. GENERAL: Awake, alert, comfortable, not in overt distress. SKIN: Adequate turgor. HEENT: She has pinkish conjunctivae. Anicteric sclerae. NECK: No neck mass. No carotid bruits. No JVD. CHEST: No deformities. LUNGS: Clear breath sounds. HEART: Normal sinus rhythm. No murmur. No gallops. No rubs. ABDOMEN: Globular, soft, nontender. No masses. EXTREMITIES: No edema. No deformities. MEDICATIONS: Medications of August 24, 2018, reviewed. LABORATORY DATA: Laboratories of August 24, 2018; white count 7.2, hemoglobin 10. Sodium 142, potassium 4.3, chloride 115, carbon dioxide 17, BUN 27, creatinine 1.35, glucose 171, calcium 8.3. ASSESSMENT AND PLAN: 1. Acute kidney injury on top of her chronic renal failure, much improved creatinine. Creatinine is 1.35, which is near baseline. Continue gentle volume repletion. 2. Osteomyelitis/diskitis-the patient has received vancomycin and ceftriaxone. For the moment, Rocephin is being continued and the recommendation is for her to receive this for the next 6 weeks. 3. Cirrhosis, supportive care. 4. Overall prognosis remains guarded. Recheck basic metabolic profile and CBC in a.m. Job ID: [id number]
[2018-08-24] MEDS: Lidocaine 5% Patch TD SCH (09:51)
--- NOTE | 2018-08-24 15:32 | PDOC.PN ---
- Subjective Encounter Start Date: 08/24/18 Encounter Start Time: 08:31 Subjective: Patient seen and examined. Still complaining of back pain. -: Fever has subsided. - Objective Resuscitation Status - Order Detail: 08/18/18 11:30 Resuscitation Status Routine Resuscitation Status: FULL: Full Resuscitation Vital Signs & Weight: Vital Signs (12 hours) Temp Pulse Resp BP BP Pulse Ox 08/24/18 11:52 99.3 F 66 17 156/74 H 94 L 08/24/18 07:28 98.9 F 72 19 148/72 H 96 08/24/18 04:00 98.4 F 68 17 130/63 96 Weight Weight 122 lb 3 oz I&O: 08/23/18 08/24/18 08/25/18 06:59 06:59 06:59 Intake Total 750 3360 240 Output Total 200 Balance 750 3160 240 Result Diagrams: 08/24/18 06:24 08/24/18 06:24 Additional Labs: Accuchecks 08/24/18 08/24/18 08/23/18 11:05 05:44 20:35 POC Glucose 165 H 168 H 172 H 08/23/18 17:43 POC Glucose 219 H Phys Exam - Physical Examination Constitutional: NAD chronically ill looking HEENT: PERRLA, moist MMs Neck: no JVD, supple Respiratory: no wheezing, no rales, no rhonchi, clear to auscultation bilateral Cardiovascular: RRR, no significant murmur Gastrointestinal: soft, non-tender, no distention, positive bowel sounds Musculoskeletal: no edema, pulses present low back tenderness noted Neurological: non-focal, moves all 4 limbs awake and conversation Psychiatric: A&O x 3 Dx/Plan (1) Sepsis Code(s): A41.9 - SEPSIS, UNSPECIFIED ORGANISM Status: Acute Comment: From UTI/pyelonephritis, bacteremia and Psos abscess/vertebarla oste. (2) UTI (urinary tract infection) Status: Acute Comment: Culture grew stap epidermidis and alpha hemolytic strep. (3) Cirrhosis, alcoholic Code(s): K70.30 - ALCOHOLIC CIRRHOSIS OF LIVER WITHOUT ASCITES Status: Chronic Qualifiers: Ascites presence: with ascites Qualified Code(s): K70.31 - Alcoholic cirrhosis of liver with ascites Comment: Abdominal size has increase associated with difficulty sitting down. (4) Acute kidney injury Code(s): N17.9 - ACUTE KIDNEY FAILURE, UNSPECIFIED Status: Acute Comment: Improved with IVF (5) Failure to thrive in adult Status: Acute (6) Abnormal LFTs Code(s): R94.5 - ABNORMAL RESULTS OF LIVER FUNCTION STUDIES Status: Acute (7) Metabolic acidosis Code(s): E87.2 - ACIDOSIS Status: Acute Comment: Improiving with alkali treatment (8) Cholelithiasis Code(s): K80.20 - CALCULUS OF GALLBLADDER W/O CHOLECYSTITIS W/O OBSTRUCTION Status: Chronic Qualifiers: Cholelithiasis location: gallbladder Cholecystitis presence: without cholecystitis Biliary obstruction: without biliary obstruction Qualified Code(s): K80.20 - Calculus of gallbladder without cholecystitis without obstruction Comment: Evaluation in the past with HIDA and MRCP were unremarkable (9) DM type 2 (diabetes mellitus, type 2) Status: Chronic Qualifiers: Diabetes mellitus usp insulin use: with local company intermodal truck driver use Diabetes mellitus complication status: with hyperglycemia Qualified Code(s): E11.65 - Type 2 diabetes mellitus with hyperglycemia; Z79.4 - skilled nursing (current) use of insulin Comment: Glycemic control improving with insulin therapy (10) HTN (hypertension) Code(s): I10 - ESSENTIAL (PRIMARY) HYPERTENSION Status: Chronic Qualifiers: Hypertension type: essential hypertension Qualified Code(s): I10 - Essential (primary) hypertension (11) Portal hypertension Code(s): K76.6 - PORTAL HYPERTENSION Status: Chronic (12) Thrombocytopenia Code(s): D69.6 - THROMBOCYTOPENIA, UNSPECIFIED Status: Chronic (13) Protein-calorie malnutrition, moderate Code(s): E44.0 - MODERATE PROTEIN-CALORIE MALNUTRITION Status: Acute Comment : On dietary supplement and megace (14) Physical deconditioning Code(s): R53.81 - OTHER MALAISE Status: Acute (15) Abdominal pain, diffuse Code(s): R10.84 - GENERALIZED ABDOMINAL PAIN Status: Chronic Comment: Improving with analgesic. (16) CKD (chronic kidney disease) stage 4, GFR 15-29 ml/min Code(s): N18.4 - CHRONIC KIDNEY DISEASE, STAGE 4 (SEVERE) Status: Chronic (17) Ascites due to alcoholic cirrhosis Code(s): K70.31 - ALCOHOLIC CIRRHOSIS OF LIVER WITH ASCITES Status: Acute Comment: S/p diagnostic paracentesis. No peritonitis (18) Fever Code(s): R50.9 - FEVER, UNSPECIFIED Status: Acute (19) Alpha-hemolytic Streptococcus positive urine culture Code(s): R82.79 - OTHER ABNORMAL FINDINGS ON MICROBIOLOG EXAMINATION OF URINE Status: Acute (20) Gram-positive cocci bacteremia Code(s): R78.81 - BACTEREMIA Status: Acute Comment: Streptococcus gordoni bacteremia (21) Discitis of lumbar region Code(s): M46.46 - DISCITIS, UNSPECIFIED, LUMBAR REGION Status: Acute (22) Psoas abscess, left Code(s): K68.12 - PSOAS MUSCLE ABSCESS Status: Acute (23) Vertebral osteomyelitis, acute Code(s): M46.20 - OSTEOMYELITIS OF VERTEBRA, SITE UNSPECIFIED Status: Acute - Plan Added levaquin for staph epidermidis. Appreciate ID input. -: skilled nursing antibiotic for psoas abscess and osteomyelitis/disc othe L3/4 -: Will place PICC line. -: Continue insulin therapy -: Rehab screening. * .
--- NOTE | 2018-08-24 16:12 | PRG ---
DATE OF SERVICE: 08/24/2018 SUBJECTIVE: Still having problems with abdominal distention, which is bothering her and chronic back pain in the lower lumbosacral area. OBJECTIVE: VITAL SIGNS: T-max 99.3, blood pressure 150/70, pulse 67, and respirations 18. GENERAL: Appears in no distress. May be some distress from the abdominal distention. LUNGS: Clear. HEART: S1 and S2. Regular rate. Faint basilar crackles. ABDOMEN: Distended with ascites. EXTREMITIES: Moves all extremities. LABORATORY DATA: White cell count 7.2, hemoglobin 10, platelets 37,000. Creatinine 1.35. Microbiology with Streptococcus gordonii. ASSESSMENT AND DISCUSSION: Alcoholism, liver cirrhosis, chronic abdominal pain, chronic back pain, bacteremia due to Streptococcus gordonii and lumbosacral diskitis. We will have to evaluate her echocardiogram since endocarditis is possible in this kind of scenario. The patient may need large volume paracentesis. She will continue on IV Rocephin for 6 weeks at least. The end date of therapy is calculated around September 28. Weekly labs will need placement of an IV access and it could be either Mattson catheter or PICC line. Job ID: [id number] [facility]
[2018-08-24] MEDS: Lidocaine Patch Removal 1 EACH TOP SCH (21:41)
[2018-08-25] MEDS: cefTRIAXone\\ROCEPHIN 2 GM in Sodium Chloride 0.9% 100 ML IVPB SCH ×2 (00:05→23:59)
[2018-08-25] MEDS: Lactated Ringer's 1,000 ML IV SCH (05:10)
[2018-08-25] MEDS: Acetaminophen 325 MG TAB PO SCH ×4 (05:10→23:58)
[2018-08-25 06:23] LABS: #Lymphocytes 1.6 thou/uL (1.20-3.40); #Monocytes 0.6 thou/uL (0.11-0.59); #Neutrophils 3.9 thou/uL (1.40-6.50); %Basophils 0.3 % (0.0-1.0); %Eosinophils 0.6 % (0.0-10.0); %Lymphocytes 25.5 % (21.0-51.0); %Monocytes 9.7 % (0.0-10.0); Hemoglobin 10.5 g/dL (12.0-16.0); Mean Corpuscular HGB CONC 32.3 g/dL (32.0-36.0); Mean Corpuscular Hemoglobin 30.5 pg (27.0-31.0); Mean Corpuscular Volume 94.4 fL (78.0-98.0); Mean Platelet Volume 10.7 fL (7.4-10.4); Platelet Count 48 thou/uL (130-400); RBC Distribution Width 16.1 % (11.5-14.5); Red Blood Cell (RBC) Count 3.42 mill/uL (4.20-5.40); White Blood Cell (WBC) Count 6.2 thou/uL (4.8-10.8)
[2018-08-25 06:44] LABS: Anion Gap 13 mmol/L (10-20); BUN (Urea Nitrogen) 23 mg/dL (9.8-20.1); Calc. Creatinine Clearance 43 mL/min (70-130); Calcium 8.5 mg/dL (7.8-10.44); Carbon Dioxide 21 mmol/L (22-29); Chloride 111 mmol/L (98-107); Estimated GFR-MDRD 45; Glucose 105 mg/dL (70-105); Sodium 141 mmol/L (136-145)
--- NOTE | 2018-08-25 08:11 | PRG ---
DATE OF SERVICE: 08/25/2018 SUBJECTIVE: Lisa Vang is a 58-year-old female with known history of acute kidney injury on top of chronic renal failure. Renal function slowly improved with volume repletion. Due to the much improved creatinine, we will be discontinuing the lactated Ringer's. She does have some degree of ascites. The last ultrasound showed a [id number] amount of ascites. We could consider starting this patient on spironolactone. She was also diagnosed to have diskitis-lumbosacral area, currently on IV antibiotics. As per recommendation by ID, consider cardiac echo to rule out any infective endocarditis. No new complaints. No chest pain or shortness of breath. OBJECTIVE: VITAL SIGNS: Blood pressure is 177/81, heart rate 67, respiratory rate 20, temperature 99.2, and pulse ox 95%. GENERAL: Awake, alert, comfortable, not in overt distress. SKIN: Adequate turgor. HEENT: She has a pinkish conjunctivae. Anicteric sclerae. No neck mass. No carotid bruits. No JVD. CHEST: No deformities. LUNGS: Clear breath sounds. HEART: Normal sinus rhythm. No murmurs, gallops, or rubs. ABDOMEN: Globular, soft, nontender. No masses. Please note, the patient has positive for mild ascites. EXTREMITIES: No edema. No deformities. MEDICATIONS: Medications of August 25, 2018, reviewed. LABORATORY DATA: Laboratories of August 25, 2018; white count 6.2, hemoglobin 10.5, platelet count is 48,000. Sodium 141, potassium 4, chloride 111, carbon dioxide 21, BUN 23, creatinine 1.21, GFR 45 mL/minute. Calcium is 8.5. ASSESSMENT AND PLAN: 1. Diskitis/osteomyelitis-lumbosacral area-on IV ceftriaxone. Plan is to give her a 6-week course of IV antibiotics. A PICC line will be ordered. 2. Acute kidney injury/chronic renal failure, much improved renal function with IV hydration. We will discontinue lactated Ringer's. 3. Cirrhosis/ascites-start spironolactone 25 mg tablet once a day. 4. Agree with current management, recheck basic metabolic profile and CBC in a.m. Job ID: [id number]
[2018-08-25] MEDS: Insulin Glargine 30 UNITS in Pre-Filled Syringe SC SCH (09:18)
[2018-08-25] MEDS: Lidocaine 5% Patch TD SCH (09:22)
[2018-08-25] MEDS: Spironolactone 25 MG TAB PO SCH (09:23)
[2018-08-25] MEDS: Nadolol 40 MG TAB PO SCH (09:24)
[2018-08-25] MEDS: Meperidine HCl/PF 25 MG/ML VIAL IM PRN (09:24)
[2018-08-25] MEDS: Megestrol Acetate 800 MG/20 ML UDCUP PO SCH (09:24)
[2018-08-25] MEDS: Sodium Bicarbonate Tab 325 MG TAB PO SCH ×3 (09:25→20:17)
--- NOTE | 2018-08-25 13:10 | PQF ---
CLINICAL DOCUMENTATION IMPROVEMENT CLARIFICATION FORM: ICD-10 Updated PLEASE DO AN ADDENDUM TO THE PROGRESS NOTE WITH ANY DOCUMENTATION UPDATES OR ADDITIONS AND CARRY THROUGH TO DC SUMMARY. THANK YOU. DATE: 08/25/18 ATTN : DR. GARCIA Please exercise your independent, professional judgment in responding to the clarification form. Clinical indicators are provided on the bottom of this form for your review Diagnosis: "SEPSIS" Present on Admission (POA): [ ] Yes [ ] No [ X ] Unable to determine Coding guidelines require hospitals to identify whether a diagnosis was present on admission (POA) or not. To accurately assign the appropriate POA indicator, this information must be clearly documented within the medical record. CLINICAL INDICATORS - SIGNS / SYMPTOMS / LABS 08/22 PROGRESS NOTE: "SEPSIS" SPIKE OF WHITE COUNT 08/22: 15.8 / BANDS 33 RISKS: CHOLELITHIASIS DIABETES UTI ASCITES BACTEREMIA OSTEOMYELITIS TREATMENT: IV FLUIDS (ER) IV ROCEPHIN (08/23-PRESENT) BLOOD AND URINE CULTURES (This form is maintained as a part of the permanent medical record) 2014 [employer] All Rights Reserved BRANDEN [email or web address] Office: [phone] ANN-MARIE
--- NOTE | 2018-08-25 14:21 | PDOC.PN ---
- Subjective Encounter Start Date: 08/25/18 Encounter Start Time: 19:20 Subjective: Still complaining of back pain. -: Fever has subsided - Objective Resuscitation Status - Order Detail: 08/18/18 11:30 Resuscitation Status Routine Resuscitation Status: FULL: Full Resuscitation Vital Signs & Weight: Vital Signs (12 hours) Temp Pulse Resp BP BP Pulse Ox 08/25/18 12:00 98.9 F 70 18 169/76 H 94 L 08/25/18 10:16 176/81 H 08/25/18 08:00 99.5 F 71 20 153/79 H 96 08/25/18 04:00 99.2 F 67 20 177/81 H 95 Weight Weight 122 lb 2 oz I&O: 08/24/18 08/25/18 08/26/18 06:59 06:59 06:59 Intake Total 3360 3077 Output Total 200 300 Balance 3160 2777 Result Diagrams: 08/25/18 05:36 08/25/18 05:36 Additional Labs: Accuchecks 08/25/18 08/25/18 08/24/18 10:49 05:49 20:28 POC Glucose 142 H 113 H 82 08/24/18 16:47 POC Glucose 101 Phys Exam - Physical Examination Constitutional: NAD chronically illlooking HEENT: PERRLA, moist MMs Neck: supple Respiratory: no wheezing, no rales, no rhonchi, clear to auscultation bilateral Cardiovascular: RRR Gastrointestinal: soft, no distention, positive bowel sounds enlarged Musculoskeletal: no edema, pulses present low back tenderness noted Neurological: non-focal, moves all 4 limbs Psychiatric: A&O x 3 Dx/Plan (1) Sepsis Code(s): A41.9 - SEPSIS, UNSPECIFIED ORGANISM Status: Acute Comment: From UTI/pyelonephritis, bacteremia and Psos abscess/vertebarla osteomyelitis. Onset cannot be determined. (2) UTI (urinary tract infection) Status: Acute Comment: Culture grew stap epidermidis and alpha hemolytic strep. (3) Cirrhosis, alcoholic Code(s): K70.30 - ALCOHOLIC CIRRHOSIS OF LIVER WITHOUT ASCITES Status: Chronic Qualifiers: Ascites presence: with ascites Qualified Code(s): K70.31 - Alcoholic cirrhosis of liver with ascites Comment: Abdominal size has increase associated with difficulty sitting down. (4) Acute kidney injury Code(s): N17.9 - ACUTE KIDNEY FAILURE, UNSPECIFIED Status: Acute Comment: Resolved with IVF. (5) Failure to thrive in adult Status: Acute (6) Abnormal LFTs Code(s): R94.5 - ABNORMAL RESULTS OF LIVER FUNCTION STUDIES Status: Acute (7) Metabolic acidosis Code(s): E87.2 - ACIDOSIS Status: Acute Comment: Improiving with alkali treatment (8) Cholelithiasis Code(s): K80.20 - CALCULUS OF GALLBLADDER W/O CHOLECYSTITIS W/O OBSTRUCTION Status: Chronic Qualifiers: Cholelithiasis location: gallbladder Cholecystitis presence: without cholecystitis Biliary obstruction: without biliary obstruction Qualified Code(s): K80.20 - Calculus of gallbladder without cholecystitis without obstruction Comment: Evaluation in the past with HIDA and MRCP were unremarkable (9) DM type 2 (diabetes mellitus, type 2) Status: Chronic Qualifiers: Diabetes mellitus mcfp 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 Diabetes mellitus complication status: with hyperglycemia Qualified Code(s): E11.65 - Type 2 diabetes mellitus with hyperglycemia; Z79.4 - marine oil terminal superintendent (current) use of insulin Comment: Glycemic control improving with insulin therapy (10) HTN (hypertension) Code(s): I10 - ESSENTIAL (PRIMARY) HYPERTENSION Status: Chronic Qualifiers: Hypertension type: essential hypertension Qualified Code(s): I10 - Essential (primary) hypertension (11) Portal hypertension Code(s): K76.6 - PORTAL HYPERTENSION Status: Chronic (12) Thrombocytopenia Code(s): D69.6 - THROMBOCYTOPENIA, UNSPECIFIED Status: Chronic (13) Protein-calorie malnutrition, moderate Code(s): E44.0 - MODERATE PROTEIN-CALORIE MALNUTRITION Status: Acute Comment : On dietary supplement and megace (14) Physical deconditioning Code(s): R53.81 - OTHER MALAISE Status: Acute (15) Abdominal pain, diffuse Code(s): R10.84 - GENERALIZED ABDOMINAL PAIN Status: Chronic Comment: Improving with analgesic. (16) CKD (chronic kidney disease) stage 4, GFR 15-29 ml/min Code(s): N18.4 - CHRONIC KIDNEY DISEASE, STAGE 4 (SEVERE) Status: Chronic (17) Ascites due to alcoholic cirrhosis Code(s): K70.31 - ALCOHOLIC CIRRHOSIS OF LIVER WITH ASCITES Status: Acute Comment: S/p diagnostic paracentesis. No peritonitis (18) Fever Code(s): R50.9 - FEVER, UNSPECIFIED Status: Acute (19) Alpha-hemolytic Streptococcus positive urine culture Code(s): R82.79 - OTHER ABNORMAL FINDINGS ON MICROBIOLOG EXAMINATION OF URINE Status: Acute (20) Gram-positive cocci bacteremia Code(s): R78.81 - BACTEREMIA Status: Acute Comment: Streptococcus gordoni bacteremia (21) Discitis of lumbar region Code(s): M46.46 - DISCITIS, UNSPECIFIED, LUMBAR REGION Status: Acute (22) Psoas abscess, left Code(s): K68.12 - PSOAS MUSCLE ABSCESS Status: Acute (23) Vertebral osteomyelitis, acute Code(s): M46.20 - OSTEOMYELITIS OF VERTEBRA, SITE UNSPECIFIED Status: Acute - Plan Start amlodipine 5 mg daily -: DC IVF -: Start tramadol prn for pain. -: Continue PT/OT, antibiotics, insulin therapy and other treatments -: Awaiting rehab evaluation. * .
[2018-08-25] MEDS ORDERED: Amlodipine 5 MG TAB PO SCH (14:30)
[2018-08-25] MEDS: traMADol HCl 50 MG TAB PO PRN (18:30)
[2018-08-25] MEDS: HumaLOG 300 UNITS/3 ML VIAL SC PRN (18:35)
[2018-08-25] MEDS: Lidocaine Patch Removal 1 EACH TOP SCH (20:23)
[2018-08-26] MEDS: Acetaminophen 325 MG TAB PO SCH ×4 (05:44→23:19)
[2018-08-26 06:54] LABS: Anion Gap 14 mmol/L (10-20); BUN (Urea Nitrogen) 22 mg/dL (9.8-20.1); Calc. Creatinine Clearance 44 mL/min (70-130); Calcium 8.5 mg/dL (7.8-10.44); Carbon Dioxide 20 mmol/L (22-29); Chloride 111 mmol/L (98-107); Estimated GFR-MDRD 45; Glucose 174 mg/dL (70-105); Potassium 3.9 mmol/L (3.5-5.1); Sodium 141 mmol/L (136-145)
[2018-08-26 07:13] LABS: #Lymphocytes 1.1 thou/uL (1.20-3.40); #Monocytes 0.4 thou/uL (0.11-0.59); #Neutrophils 2.5 thou/uL (1.40-6.50); %Basophils 0.5 % (0.0-1.0); %Eosinophils 0.6 % (0.0-10.0); %Lymphocytes 26.5 % (21.0-51.0); %Neutrophils 62.3 % (42.0-75.0); Hemoglobin 10.6 g/dL (12.0-16.0); Mean Corpuscular HGB CONC 32.7 g/dL (32.0-36.0); Mean Corpuscular Hemoglobin 30.3 pg (27.0-31.0); Mean Corpuscular Volume 92.5 fL (78.0-98.0); Mean Platelet Volume 10.2 fL (7.4-10.4); Platelet Count 46 thou/uL (130-400); RBC Distribution Width 16.5 % (11.5-14.5); Red Blood Cell (RBC) Count 3.51 mill/uL (4.20-5.40)
[2018-08-26] MEDS: Megestrol Acetate 800 MG/20 ML UDCUP PO SCH (08:15)
[2018-08-26] MEDS: Sodium Bicarbonate Tab 325 MG TAB PO SCH ×3 (08:15→20:53)
[2018-08-26] MEDS: Spironolactone 25 MG TAB PO SCH (08:16)
[2018-08-26] MEDS: Nadolol 40 MG TAB PO SCH (08:16)
[2018-08-26] MEDS: Insulin Glargine 30 UNITS in Pre-Filled Syringe SC SCH (08:17)
[2018-08-26] MEDS: traMADol HCl 50 MG TAB PO PRN ×2 (08:58→20:56)
[2018-08-26] MEDS: Lidocaine 5% Patch TD SCH (08:59)
[2018-08-26] MEDS ORDERED: Amlodipine 5 MG TAB PO SCH ×2 (09:00→11:15)
--- NOTE | 2018-08-26 09:45 | PRG ---
DATE OF SERVICE: 08/26/2018 SUBJECTIVE: Ms. Gonzalez is a 58-year-old female who was seen by the Renal Service for her acute kidney injury on top of her chronic renal failure. The acute kidney injury was a hemodynamically-mediated renal dysfunction. Renal function is much improved. Complaining of abdominal fullness secondary to her ascites. I did review the ultrasound and it showed small to moderate amount of ascites. The patient denies any chest pain or shortness of breath. In addition, she has been recently diagnosed with osteomyelitis of the lumbosacral area. Currently, the patient is on IV antibiotics. OBJECTIVE: VITAL SIGNS: Blood pressure is 150/72, heart rate 65, respiratory rate 18, temperature 98.5, and pulse ox 94%. GENERAL: Awake, alert, comfortable, not in overt distress. SKIN: Adequate turgor. HEENT: She has a pinkish conjunctivae. Anicteric sclerae. No neck mass. No carotid bruits. No JVD. CHEST: No deformities. LUNGS: Clear breath sounds. No wheezing. No crackles. HEART: Normal sinus rhythm. No murmur. No gallops. No rubs. ABDOMEN: Globular, soft, nontender. No masses. EXTREMITIES: No edema. No deformities. MEDICATIONS: Of August 26, 2018, was reviewed. LABORATORY DATA: Of August 26, 2018; white count 4, hemoglobin 10.6. Sodium 141, potassium 3.9, chloride 111, carbon dioxide 20, BUN 22, creatinine 1.23, glucose 174, and calcium 8.5. ASSESSMENT AND PLAN: 1. Acute kidney injury, hemodynamically mediated renal dysfunction. Much improved with volume repletion. No indication for any dialytic intervention. 2. Chronic renal failure, secondary to presumed chronic glomerulonephritis. 3. Cirrhosis/ascites, I have resumed back spironolactone at 25 mg tablet once a day. 4. Lumbosacral osteomyelitis, on IV antibiotics. Cardiac echo was done, which showed no intracardiac thrombus. IV antibiotics will be given for the next several weeks as per recommendation by ID. 5. We are also awaiting peripherally inserted central catheter line placement with this patient. We will be rechecking a basic metabolic panel and CBC in a.m. Job ID: [id number]
[2018-08-26] MEDS: HumaLOG 300 UNITS/3 ML VIAL SC PRN (11:13)
[2018-08-26] MEDS: Meperidine HCl/PF 25 MG/ML VIAL IM PRN (12:48)
--- NOTE | 2018-08-26 13:17 | PDOC.PN ---
- Subjective Encounter Start Date: 08/26/18 Encounter Start Time: 11:15 Subjective: No new problem -: Denied fever. Still having back pain. -: Appetite is improving. Activity is increasing - Objective Resuscitation Status - Order Detail: 08/18/18 11:30 Resuscitation Status Routine Resuscitation Status: FULL: Full Resuscitation Vital Signs & Weight: Vital Signs (12 hours) Temp Pulse Resp BP BP Pulse Ox 08/26/18 12:44 98.4 F 61 18 119/60 94 L 08/26/18 07:31 98.5 F 65 18 150/72 H 94 L 08/26/18 03:40 98.7 F 65 20 160/72 H 93 L Weight Weight 125 lb I&O: 08/25/18 08/26/18 08/27/18 06:59 06:59 06:59 Intake Total 3077 1540 Output Total 300 Balance 2777 1540 Result Diagrams: 08/26/18 06:31 08/26/18 04:37 Additional Labs: Accuchecks 08/26/18 08/26/18 08/25/18 10:43 05:31 20:15 POC Glucose 234 H 185 H 217 H 08/25/18 17:40 POC Glucose 260 H Phys Exam - Physical Examination Constitutional: NAD HEENT: PERRLA, moist MMs Neck: no JVD, supple Respiratory: no wheezing, no rales, no rhonchi, clear to auscultation bilateral Cardiovascular: RRR Gastrointestinal: soft, positive bowel sounds enlarged Musculoskeletal: no edema, pulses present Neurological: non-focal, moves all 4 limbs Psychiatric: A&O x 3 Dx/Plan (1) Sepsis Code(s): A41.9 - SEPSIS, UNSPECIFIED ORGANISM Status: Acute Comment: From UTI/pyelonephritis, bacteremia and Psos abscess/vertebarla osteomyelitis. Onset cannot be determined. (2) UTI (urinary tract infection) Status: Acute Comment: Culture grew staph epidermidis and granulicatella adiecens. Granulicatella can be from endocarditis. Susceptibility is awaited. (3) Cirrhosis, alcoholic Code(s): K70.30 - ALCOHOLIC CIRRHOSIS OF LIVER WITHOUT ASCITES Status: Chronic Qualifiers: Ascites presence: with ascites Qualified Code(s): K70.31 - Alcoholic cirrhosis of liver with ascites Comment: Abdominal size has increase associated with difficulty sitting down. (4) Acute kidney injury Code(s): N17.9 - ACUTE KIDNEY FAILURE, UNSPECIFIED Status: Acute Comment: Resolved with IVF. (5) Failure to thrive in adult Status: Acute (6) Abnormal LFTs Code(s): R94.5 - ABNORMAL RESULTS OF LIVER FUNCTION STUDIES Status: Acute (7) Metabolic acidosis Code(s): E87.2 - ACIDOSIS Status: Acute Comment: Improiving with alkali treatment (8) Cholelithiasis Code(s): K80.20 - CALCULUS OF GALLBLADDER W/O CHOLECYSTITIS W/O OBSTRUCTION Status: Chronic Qualifiers: Cholelithiasis location: gallbladder Cholecystitis presence: without cholecystitis Biliary obstruction: without biliary obstruction Qualified Code(s): K80.20 - Calculus of gallbladder without cholecystitis without obstruction Comment: Evaluation in the past with HIDA and MRCP were unremarkable (9) DM type 2 (diabetes mellitus, type 2) Status: Chronic Qualifiers: Diabetes mellitus prison insulin use: with prison use Diabetes mellitus complication status: with hyperglycemia Qualified Code(s): E11.65 - Type 2 diabetes mellitus with hyperglycemia; Z79.4 - prison (current) use of insulin Comment: Glycemic control improving with insulin therapy (10) HTN (hypertension) Code(s): I10 - ESSENTIAL (PRIMARY) HYPERTENSION Status: Chronic Qualifiers: Hypertension type: essential hypertension Qualified Code(s): I10 - Essential (primary) hypertension (11) Portal hypertension Code(s): K76.6 - PORTAL HYPERTENSION Status: Chronic (12) Thrombocytopenia Code(s): D69.6 - THROMBOCYTOPENIA, UNSPECIFIED Status: Chronic (13) Protein-calorie malnutrition, moderate Code(s): E44.0 - MODERATE PROTEIN-CALORIE MALNUTRITION Status: Acute Comment : On dietary supplement and megace (14) Physical deconditioning Code(s): R53.81 - OTHER MALAISE Status: Acute (15) Abdominal pain, diffuse Code(s): R10.84 - GENERALIZED ABDOMINAL PAIN Status: Chronic Comment: Improving with analgesic. (16) CKD (chronic kidney disease) stage 4, GFR 15-29 ml/min Code(s): N18.4 - CHRONIC KIDNEY DISEASE, STAGE 4 (SEVERE) Status: Chronic (17) Ascites due to alcoholic cirrhosis Code(s): K70.31 - ALCOHOLIC CIRRHOSIS OF LIVER WITH ASCITES Status: Acute Comment: S/p diagnostic paracentesis. No peritonitis (18) Fever Code(s): R50.9 - FEVER, UNSPECIFIED Status: Acute Comment: Defervesced. (19) Alpha-hemolytic Streptococcus positive urine culture Code(s): R82.79 - OTHER ABNORMAL FINDINGS ON MICROBIOLOG EXAMINATION OF URINE Status: Acute (20) Gram-positive cocci bacteremia Code(s): R78.81 - BACTEREMIA Status: Acute Comment: Streptococcus gordoni bacteremia. Endocarditis is a concern. TTE was non diagnostic but valves were thickened. cardiology recommended YASIR. (21) Discitis of lumbar region Code(s): M46.46 - DISCITIS, UNSPECIFIED, LUMBAR REGION Status: Acute (22) Psoas abscess, left Code(s): K68.12 - PSOAS MUSCLE ABSCESS Status: Acute (23) Vertebral osteomyelitis, acute Code(s): M46.20 - OSTEOMYELITIS OF VERTEBRA, SITE UNSPECIFIED Status: Acute - Plan Increase amlodipine to 10 mg daily to get adequate BP control -: Get YASIR to rule in/out endocarditis -: Continue current antibiotics Rocephin and levaquin. ID following. -: For PICC line placement today. -: Anticipate discharge to inpatient rehab. * . Had a family meeting with patient and 2 sisters. We went over medical problems, care plan andcare options.
--- NOTE | 2018-08-26 14:11 | SPC ---
Ultrasound and Fluoroscopic guidedrightupper extremity PICC placement HISTORY: Infection. Patient is long-term IV antibiotics. FINDINGS: Informed consent obtained prior to the procedure. An appropriate access site was determined with ultrasound guidance. The area was then meticulously pr epped and draped in usual sterile fashion. Skin overlying theright basilicvein anesthetized with 1% buffered lidocaine. With direct sonographic guidance, vascular access is obtained via the right basilicvein and an 0.018in guidewire was advanced to the cavoatrial junction. Intravascular length is calculated at 34 cm and the PICC is cut accordingly. Needle is removed and replaced with a peel-away sheath. The PICC was advanced over the wire. Wire and peel-away sheath were removed. The tip of the catheter overlies the cavoatrial junction. The port flushes well and the catheter is ready for use. Exposure data: 0 minutes of fluoroscopic time 298 mGy per centimeter squared FINDINGS: Technically successful placement of a 34centimeter single lumen 5 Kisw[place]ili right upper extremity PICC l ine. IMPRESSION: Successful ultrasound guided placement of a right upper extremity PICC.
--- NOTE | 2018-08-26 17:09 | CON ---
DATE OF CONSULTATION: 08/26/2018 PRIMARY MEDICATION TECH: Dr. Miky Fu. REASON FOR CONSULTATION: Possible need for YASIR. HISTORY OF PRESENT ILLNESS: Ms. Gonzalez is a very pleasant 58-year-old female, who comes to the hospital for abdominal pain. She was diagnosed with diskitis and Streptococcus gordonii bacteremia, so she is being treated with IV antibiotics for this. She had an echocardiogram done that showed mild MR, mild AI, mild TR with no evidence of endocarditis. We were being asked to consider transesophageal echo given the possibility of endocarditis not seen on transthoracic echo. Ms. Gonzalez is doing better from a clinical standpoint. PAST MEDICAL HISTORY: 1. Alcoholic cirrhosis. 2. Alcoholism. 3. Portal hypertension. 4. Type 2 diabetes. 5. Nephrolithiasis. 6. Depression. 7. Transient renal insufficiency with end-stage manifestations. AV fistula was created on left arm. FAMILY HISTORY: No early coronary artery disease. SOCIAL HISTORY: Lives alone. Denies alcohol use at that time. No smoking. OUTPATIENT MEDICATIONS: 1. Tylenol. 2. Ceftriaxone. 3. Insulin. 4. Lactulose. 5. Meperidine. 6. Zofran. 7. Vancomycin. ALLERGIES: MORPHINE AND BENADRYL. REVIEW OF SYSTEMS: A 12-point review of systems was done and was found to be negative unless stated in the history of present illness. PHYSICAL EXAMINATION: VITAL SIGNS: Temperature 98.2, pulse 64, respiratory rate 18, sat 94% on room air, and blood pressure 120/58. GENERAL: Awake, alert, and oriented x3, in no distress. HEENT: Normocephalic and atraumatic. NECK: Supple. LUNGS: Clear. CARDIOVASCULAR: S1 and S2. No S3 or S4. There is a grade 2/6 systolic murmur at the right upper sternal border. ABDOMEN: Soft. Small amount of ascites. EXTREMITIES: No edema. SKIN: Warm and dry. LABORATORY DATA: Laboratory work was reviewed. CBC, coags, and chemistry were reviewed. Creatinine 1.23 and GFR 45. UA was positive. Blood culture was positive for Streptococcus gordonii and UA with Staph epidermidis and Granulicatella adiacens. Echocardiogram was reviewed. ASSESSMENT: 1. Streptococcus bacteremia. 2. Osteomyelitis, diskitis of the L3, L4. 3. Left psoas abscess. 4. Alcohol abuse. 5. Alcoholic cirrhosis. PLAN: 1. I spoke with Dr. Joyner about possibly doing a YASIR in this setting. There would not be a significant change in medical therapy given she will need 6 weeks of IV antibiotic given her diskitis. Her valvular structures are minimally regurgitant and unlikely that they will progress, if they do have a small vegetation, this would still be treated with 6 weeks of IV antibiotics, so medical therapy would not change even if she had some level of endocarditis. I would certainly repeat an echo in 6 weeks to make sure that her valves are not worsening in any way or if clinical deterioration happens. 2. At this time, we would hold off on a transesophageal echo given her high risk given her portal hypertension and alcoholic cirrhosis. She may have developed varicose veins and would require GI evaluation before doing a transesophageal echo. I do not think this needed at this time. Thank you for letting me to participate in the care of your patient. Dr. Fu, his primary marine pipefitter helper, will follow up in the morning. Job ID: [id number]
[2018-08-26] MEDS: Lidocaine Patch Removal 1 EACH TOP SCH (20:54)
[2018-08-27] MEDS: cefTRIAXone\\ROCEPHIN 2 GM in Sodium Chloride 0.9% 100 ML IVPB SCH (01:42)
[2018-08-27] MEDS: Acetaminophen 325 MG TAB PO SCH ×2 (05:28→11:35)
[2018-08-27 06:03] LABS: Anion Gap 14 mmol/L (10-20); BUN (Urea Nitrogen) 20 mg/dL (9.8-20.1); Calc. Creatinine Clearance 43 mL/min (70-130); Calcium 8.5 mg/dL (7.8-10.44); Carbon Dioxide 20 mmol/L (22-29); Chloride 113 mmol/L (98-107); Estimated GFR-MDRD 44; Glucose 96 mg/dL (70-105); Potassium 3.9 mmol/L (3.5-5.1); Sodium 143 mmol/L (136-145)
[2018-08-27 06:05] LABS: #Eosinphils 0.1 thou/uL (0.0-0.7); #Lymphocytes 1.2 thou/uL (1.20-3.40); #Monocytes 0.6 thou/uL (0.11-0.59); #Neutrophils 3.4 thou/uL (1.40-6.50); %Basophils 0.3 % (0.0-1.0); %Eosinophils 1.6 % (0.0-10.0); %Lymphocytes 21.7 % (21.0-51.0); %Monocytes 12.1 % (0.0-10.0); %Neutrophils 64.4 % (42.0-75.0); Mean Corpuscular HGB CONC 33.2 g/dL (32.0-36.0); Mean Corpuscular Hemoglobin 30.8 pg (27.0-31.0); Mean Corpuscular Volume 92.8 fL (78.0-98.0); Mean Platelet Volume 10.2 fL (7.4-10.4); Platelet Count 50 thou/uL (130-400); RBC Distribution Width 16.3 % (11.5-14.5); Red Blood Cell (RBC) Count 3.25 mill/uL (4.20-5.40); White Blood Cell (WBC) Count 5.3 thou/uL (4.8-10.8)
--- NOTE | 2018-08-27 06:05 | PDOC.CTH ---
Cardiology Progress Note - Subjective No complaints - Objective Vital Signs Temp Pulse Resp BP BP Pulse Ox 08/27/18 03:27 98.7 F 71 18 131/61 95 08/26/18 20:51 98.9 F 68 16 128/61 93 L Weight 125 lb 9.6 oz 08/25/18 08/26/18 08/27/18 06:59 06:59 06:59 Intake Total 3077 1540 860 Output Total 300 Balance 2777 1540 860 - Physical Examination General/Neuro: alert & oriented x3, NAD Neck: carotid US brisk, no JVD present Lungs: CTA, unlabored respirations Heart: PMI normal, RRR Abdomen: NT/ND, soft Extremities: + femoral B - Telemetry Telemetry Rhythm: SR - Labs Result Diagrams: 08/27/18 04:31 08/27/18 04:31 Troponin/CKMB Troponin I 0.016 ng/mL (< 0.028) 08/17/18 23:42 - Assessment/Plan ? Endocarditis Cirrhosis DM Portal HTN RI Agree With dr. Foster and Dr. Joyner. YASIR not needed if management is unchanged. 6 weeks Abx for diskitis Mild AI, MR noted No fruther recommendations Please reconsult if changes arise
--- NOTE | 2018-08-27 08:35 | PRG ---
DATE OF SERVICE: SERVICE: Renal medicine. SUBJECTIVE: Ms. Gonzalez is a 58-year-old female with acute kidney injury on top of chronic renal failure. She initially was seen by the Renal Service for an acute kidney injury on top of chronic renal failure. IV hydration has been done. Adjustment with diuretics was made. Due to the improving renal function, spironolactone was started. Please note, she has history of cirrhosis with some ascites. She was also diagnosed with a diskitis and currently on IV antibiotics. Cardiology has evaluated the patient. No indication for any transesophageal echocardiogram. No new complaints today. Still with chronic low back pain. No chest pain or shortness of breath. OBJECTIVE: VITAL SIGNS: Blood pressure is 128/61, heart rate 71, respiratory rate 18, temperature 98.7, and pulse ox 95%. GENERAL: Noted to be awake, alert, comfortable, not in distress. SKIN: Adequate turgor. HEENT: She has pinkish conjunctivae. Anicteric sclerae. No neck mass. No carotid bruits. No JVD. CHEST: No deformities. LUNGS: Clear breath sounds. No wheezing. No crackles. HEART: Normal sinus rhythm. No murmur. No gallops. No rubs. ABDOMEN: Globular, soft, nontender. No masses. EXTREMITIES: No edema. No deformities. MEDICATIONS: Medications of August 27, 2018, was reviewed. LABORATORY DATA: Laboratories of August 27, 2018; white count 5.2, hemoglobin 10, sodium 143, potassium 3.9, chloride 113, carbon dioxide 20, BUN 20, creatinine 1.24, glucose 96, GFR 44 mL/min, calcium 8.5. ASSESSMENT AND PLAN: 1. Diskitis - patient on IV antibiotics. Infectious Disease is following. 2. Borderline anemia. Continue to observe. 3. Acute kidney injury - hemodynamically-mediated renal dysfunction, much improved. 4. Chronic renal failure secondary to diabetic nephropathy. 5. Cirrhosis. Continue supportive care. Please note, spironolactone has been restarted due to the ascites. Overall, I agree with current management, recheck basic metabolic profile and CBC in a.m. Job ID: [id number]
[2018-08-27] MEDS: Spironolactone 25 MG TAB PO SCH (08:58)
[2018-08-27] MEDS ORDERED: Amlodipine 10 MG TAB PO SCH (09:00)
[2018-08-27 09:13] VITALS: TEMP 98.3
[2018-08-27] MEDS: Insulin Glargine 30 UNITS in Pre-Filled Syringe SC SCH (09:22)
[2018-08-27] MEDS: Megestrol Acetate 800 MG/20 ML UDCUP PO SCH (09:24)
[2018-08-27] MEDS: Nadolol 40 MG TAB PO SCH (09:25)
[2018-08-27] MEDS: Sodium Bicarbonate Tab 325 MG TAB PO SCH (09:26)
[2018-08-27] MEDS: Lidocaine 5% Patch TD SCH (09:39)
[2018-08-27 12:24] VITALS: BP 134/67
[2018-08-27] MEDS: traMADol HCl 50 MG TAB PO PRN (13:13)
[2018-08-27 13:16] VITALS: BMI 25.3
[2018-08-28 15:16] LABS: Reference Lab Name LABCORP
[2018-08-28 15:17] LABS: Ref Lab Test Ordered SUSCEPTABILITY
--- NOTE | 2018-08-30 03:17 | DIS ---
DATE OF ADMISSION: 08/18/2018 DATE OF DISCHARGE: 08/27/2018 DISCHARGE DIAGNOSES: 1. Lumbar diskitis. 2. Psoas abscess on the left. 3. Sepsis. 4. Urinary tract infection. 5. Alcoholic cirrhosis. 6. Acute kidney injury. 7. Failure to thrive. 8. Metabolic acidosis. 9. Cholelithiasis. 10. Diabetes. 11. Hypertension. 12. Portal hypertension. 13. Thrombocytopenia. 14. Protein-calorie malnutrition, moderate. 15. Physical deconditioning. 16. Diffuse abdominal pain. 17. Chronic kidney disease stage 4. 18. Ascites. HISTORY OF PRESENT ILLNESS: The patient is a 58-year-old female with a history of alcoholic cirrhosis and ascites. She had previously been admitted with abdominal pain. She subsequently came back with worsening abdominal pain to the emergency department. Initially, the patient's workup was notable for typical cirrhotic findings, possible fecal impaction and constipation. She also had some [id number] kidney injury. The patient was admitted to the hospital, started on treatment for constipation and nutritional support. She was also noted to have a number of chronic conditions including deconditioning, thrombocytopenia. The patient was seen in consultation by Dr. Boyd, because of her renal disease. She had abdominal imaging initially with x-ray, subsequently with ultrasound which showed cirrhosis and a [id number] volume of ascites, cholelithiasis, mural edema of the gallbladder, possibly related to the hepatic disease, signs of chronic pancreatitis and a small bilateral kidney suggestive of medical renal disease. When the patient's symptoms were not resolving, she had a followup paracentesis with ultrasound guidance and 20 mL of fluid were aspirated, which had a few white blood cells, no organisms and no growth. The patient subsequently spiked a significant fever and became much tachypneic and a code green was called. The patient had a CT scan of the abdomen in followup, which revealed endplate lytic change at L3-L4, suspicious for diskitis or osteomyelitis. An MRI was then obtained and confirmed diskitis and osteomyelitis at L3-L4 with a left psoas abscess measuring 1.8 cm extending from the L3-4 level to the L5-S1 level. No epidural abscess was seen. Multilevel spondylosis was noted of the lumbar spine. Dr. Joyner was then consulted. His recommendation was to continue Rocephin for 6 weeks. He did not believe there was an indication for drainage of the psoas abscess. The patient subsequently had blood cultures growing Streptococcus gordonii, this raises a concern for the possibility of endocarditis. An echocardiogram was performed revealing an EF of 55% to 60% and no evidence of vegetations. Cardiology was consulted for the possibility of a YASIR. However, given that the patient was going to require 6 weeks of antibiotics regardless of whether vegetations were seen and the fact the patient was otherwise stable from a cardiac standpoint, the decision was made to forego the YASIR, if it was not felt likely to change the course of treatment. Once the patient was on a stable antibiotic regimen and her PICC line was in place, she was felt appropriate for inpatient rehab given her severe overall deconditioning. PHYSICAL EXAMINATION: VITAL SIGNS: On the day of discharge temperature is 98.3, pulse 76, respirations 18, O2 saturation 95% on 2 L nasal cannula, BP 134/67. GENERAL APPEARANCE: Age-appropriate female, in no distress. She is awake, alert, oriented. HEART: Regular rate and rhythm. LUNGS: Clear bilaterally. ABDOMEN: Slightly distended, soft, nontender. EXTREMITIES: With trace 1+ edema. DISPOSITION: The patient is discharged to the [facility]. DISCHARGE INSTRUCTIONS: Activity: As tolerated. Diet: She will stay on a heart healthy diet. She will have OT and PT. DISCHARGE MEDICATIONS: She will be on: 1. Acetaminophen. 2. Amlodipine 10 mg daily. 3. Rocephin 2 g IV piggyback daily. 4. Lantus 30 units subcu daily. 5. Lidoderm patch p.r.n. 6. Megace 400 daily. 7. Aldactone 25 daily. 8. Lactulose 30 mg b.i.d. 9. Levemir 16 units b.i.d. 10. Colestipol 1 g b.i.d. 11. Sodium bicarb 650 t.i.d. 12. Nadolol 40 mg daily. 13. Hydroxyzine 25 mg t.i.d. 14. Tie Siding 5/325 one q.6 hours p.r.n. 15. Pantoprazole 40 mg b.i.d. 16. NovoLog FlexPen 5 units subcu t.i.d. with meals. FOLLOWUP: The patient will follow up with her PCP when she is out of rehab. She will also need to follow up with Dr. Joyner as an outpatient. The patient can return to the hospital should she have any problems prior to that time. Time spent in discharge activities including face to face time with patient was 40 minutes. Job ID: [id number] [email or web address]
== END 2018-08-27 14:30 | DRG 432 ==
LOC: ERS 22:48 → ERHOLD 08-18 01:26 → 2NO 08-18 12:58
PROVIDERS: ADMIT Internal Medicine; ATTEND Internal Medicine
PROC: 0W9G3ZX Drainage of Peritoneal Cavity, Percutaneous Approach, Diagnostic (ICD-10-PCS; principal; 2018-08-21)
PROC: 02HV33Z Insertion of Infusion Device into Superior Vena Cava, Percutaneous Approach (ICD-10-PCS; 2018-08-26)
PROC: B518YZA Fluoroscopy of Superior Vena Cava using Other Contrast, Guidance (ICD-10-PCS; 2018-08-26)
PROC: B548ZZA Ultrasonography of Superior Vena Cava, Guidance (ICD-10-PCS; 2018-08-26)
DX: K70.31 Alcoholic cirrhosis of liver with ascites (principal); A40.8 Other streptococcal sepsis; K68.12 Psoas muscle abscess; N17.9 Acute kidney failure, unspecified; E87.2 Acidosis; K76.6 Portal hypertension; N18.4 Chronic kidney disease, stage 4 (severe); E44.0 Moderate protein-calorie malnutrition; N39.0 Urinary tract infection, site not specified; N03.9 Chronic nephritic syndrome with unspecified morphologic changes; K86.0 Alcohol-induced chronic pancreatitis; M46.26 Osteomyelitis of vertebra, lumbar region; E11.22 Type 2 diabetes mellitus with diabetic chronic kidney disease; E87.5 Hyperkalemia; D73.1 Hypersplenism; F32.9 Major depressive disorder, single episode, unspecified; R62.7 Adult failure to thrive; M19.90 Unspecified osteoarthritis, unspecified site; K80.20 Calculus of gallbladder without cholecystitis without obstruction; K70.30 Alcoholic cirrhosis of liver without ascites; D63.1 Anemia in chronic kidney disease; E11.65 Type 2 diabetes mellitus with hyperglycemia; R82.79 Other abnormal findings on microbiological examination of urine; D69.59 Other secondary thrombocytopenia; T40.2X5A Adverse effect of other opioids, initial encounter; I08.0 Rheumatic disorders of both mitral and aortic valves; K59.03 Drug induced constipation; M46.47 Discitis, unspecified, lumbosacral region; Z60.2 Problems related to living alone; Z68.25 Body mass index [BMI] 25.0-25.9, adult; Z88.8 Allergy status to other drugs, medicaments and biological substances; Z79.4 Long term (current) use of insulin; Z88.5 Allergy status to narcotic agent; Z79.899 Other long term (current) drug therapy; Z79.891 Long term (current) use of opiate analgesic; Z86.59 Personal history of other mental and behavioral disorders; I12.9 Hypertensive chronic kidney disease with stage 1 through stage 4 chronic kidney disease, or unspecified chronic kidney disease; E86.0 Dehydration; E11.69 Type 2 diabetes mellitus with other specified complication
CPT/HCPCS: 36415; 36416; 36569; 49083; 71045; 72158; 74018; 74176; 76700; 80048; 80053; 81001; 82042; 82140; 82728; 83036; 83540; 83550; 83605; 84157; 84484; 85025; 85060; 85610; 85730; 86160; 87040; 87070; 87077; 87086; 87149; 87186; 87205; 89051; 93005; 93306; 96361; 96365; 96375; A9577; C1751; J0696; J1815; J1825; J2175; J2405; J3370; J3490; J7050; P9047

== ENCOUNTER 2018-09-01 09:42 | Observation (INO) | payer MEDICARE, MEDICAID ==
--- NOTE | 2018-09-01 10:18 | RAD ---
PORTABLE CHEST 1 VIEW: DATE: 09/01/2018. TIME: 10:02 a.m. HISTORY: Dyspnea. FINDINGS/IMPRESSION: Comparison is made with the exam of 08/30/2018. Right upper extremity PICC line remains in place. Th e heart size is stable. There is continued elevation of the right hemidiaphragm with mild patchy [place]a [place] in right lower lung. No pneumothoraces or large effusions are seen. POS: TPC
[2018-09-01 10:28] LABS: INR-International Normal Ratio 1.5; PTT 38.5 SEC (22.9-36.1); Prothrombin Time 17.9 SEC (12.0-14.7)
[2018-09-01 10:35] LABS: #Eosinphils 0.1 thou/uL (0.0-0.7); #Lymphocytes 1.5 thou/uL (1.20-3.40); #Monocytes 0.7 thou/uL (0.11-0.59); %Basophils 0.2 % (0.0-1.0); %Eosinophils 1.3 % (0.0-10.0); %Lymphocytes 17.6 % (21.0-51.0); %Monocytes 8.7 % (0.0-10.0); %Neutrophils 72.3 % (42.0-75.0); Hemoglobin 9.9 g/dL (12.0-16.0); Mean Corpuscular HGB CONC 32.7 g/dL (32.0-36.0); Mean Corpuscular Hemoglobin 30.9 pg (27.0-31.0); Mean Corpuscular Volume 94.3 fL (78.0-98.0); Mean Platelet Volume 10.2 fL (7.4-10.4); Platelet Count 54 thou/uL (130-400); RBC Distribution Width 16.8 % (11.5-14.5); Red Blood Cell (RBC) Count 3.21 mill/uL (4.20-5.40); White Blood Cell (WBC) Count 8.3 thou/uL (4.8-10.8)
[2018-09-01 10:45] LABS: ALT (SGPT) 12 U/L (8-55); AST (SGOT) 25 U/L (5-34); Albumin 2.9 g/dL (3.5-5.0); Alkaline Phosphatase 242 U/L (40-150); Anion Gap 16 mmol/L (10-20); BUN (Urea Nitrogen) 29 mg/dL (9.8-20.1); Bilirubin, Total 0.9 mg/dL (0.2-1.2); Calc. Creatinine Clearance 0 mL/min (70-130); Calcium 8.4 mg/dL (7.8-10.44); Carbon Dioxide 18 mmol/L (22-29); Chloride 111 mmol/L (98-107); Estimated GFR-MDRD 23; Globulin 3.1 g/dL (2.4-3.5); Glucose 346 mg/dL (70-105); Potassium 5.8 mmol/L (3.5-5.1); Sodium 139 mmol/L (136-145)
[2018-09-01 11:05] LABS: CKMB 2.2 ng/mL (0-6.6)
[2018-09-01] MEDS ORDERED: Senokot S 8.6-50 MG TAB PO PRN (13:29)
[2018-09-01] MEDS ORDERED: HumaLOG 300 UNITS/3 ML VIAL SC PRN (13:30)
[2018-09-01] MEDS ORDERED: Dextrose 50% Abboject 50 ML SYRINGE SLOW IVP PRN (13:30)
[2018-09-01] MEDS ORDERED: Dextrose 5% in Water 1,000 ML IV PRN (13:30)
[2018-09-01 13:37] LABS: Troponin I 0.021 ng/mL (< 0.028)
--- NOTE | 2018-09-01 13:55 | ULT ---
Limited abdominal ultrasound CLINICAL HISTORY: Ascites, abdominal pain FINDINGS: There is mild intra-abdominal ascites demonstrated within the imaged 4 abdominal quadrants. IMPRESSION: Mild abdominal ascites.
--- NOTE | 2018-09-01 14:15 | HP ---
PRIMARY CARE PROVIDER: . CHIEF COMPLAINT: Ascites. HISTORY OF PRESENT ILLNESS: Ms. Gonzalez is a pleasant 58-year-old lady, who was seen at [facility] on September 01, 2018. She was hospitalized at this facility from August 18, 2018 to August 27, 2018 for lumbar diskitis, left psoas abscess, sepsis, urinary tract infection, acute kidney injury, and failure to thrive. She was discharged to [facility] from this hospital. She reportedly had shortness of breath while she was there. She reports that the shortness of breath has been going on for several years. She was also found to have gradually worsening abdominal distention at rehab. Attempts were made to obtain ultrasound-guided paracentesis as an outpatient, but the patient could not reportedly get the appointment. She was therefore sent to the emergency room. In the emergency room, she was found to have [id number] kidney disease. She was therefore referred for admission to the hospital. The patient denies any chest pain. She reports chronic shortness of breath that has not changed recently. She reports that she had a paracentesis about 3 weeks ago with improvement in her shortness of breath at that time. She denies any fevers or chills. She denies any nausea or vomiting. She reports generalized weakness. REVIEW OF SYSTEMS: All other systems reviewed and found to be negative. PAST MEDICAL HISTORY: Diskitis, chronic kidney disease for which she required dialysis in the past, but she is not on dialysis for the 3 years, hypertension, cirrhosis, diabetes mellitus type 2, hypersplenism, chronic thrombocytopenia, nephrolithiasis, depression, psoas abscess. SURGICAL HISTORY: AV fistula creation on the left arm. FAMILY HISTORY: The patient denies family history of premature coronary artery disease. SOCIAL HISTORY: The patient denies tobacco use, alcohol use, or recreational drug use. ALLERGIES: BENADRYL AND MORPHINE. CURRENT MEDICATIONS: As dictated by Dr. Farmer in his discharge summary dated August 27, 2018. Please note that her medications also include ceftriaxone 2 g intravenously every day for a total of 6 weeks. PHYSICAL EXAMINATION: GENERAL: On examination, Ms. Gonzalez is awake and alert, not in acute distress. She appears malnourished. VITAL SIGNS: Blood pressure is 127/77, pulse 73, respiratory rate 14 and oxygen saturation 93% on room air. She is afebrile. EYES: No scleral icterus, no conjunctival pallor. ENT: Moist mucosal membranes. No oropharyngeal erythema or exudates. NECK: Supple, nontender, trachea is midline. RESPIRATORY: Accessory muscles of breathing are not active. Chest wall movements are symmetric bilaterally. Lungs are clear to auscultation without wheeze, rhonchi, or crepitations. CARDIOVASCULAR: S1 and S2 are heard, regular. Peripheral pulses palpable. ABDOMEN: Soft, distended, she has shifting dullness, bowel sounds heard. NEUROLOGIC: Cranial nerves 2 through 12 are intact, deep tendon reflexes 2+. MUSCULOSKELETAL: Power is 5/5 in all four extremities. SKIN: No rashes or subcutaneous nodules. LYMPHATIC: No cervical lymphadenopathy. PSYCHIATRIC: Normal mood, normal affect, the patient is oriented to person and place only, not to time. LABORATORY DATA: Ms. Gonzalez's labs and investigations were reviewed. She has normal white count, normocytic anemia with hemoglobin 9.9, thrombocytopenia with platelet count 54,000. INR 1.5, normal sodium, elevated potassium of 5.8, elevated blood urea nitrogen of 29, elevated creatinine 2.19, creatinine was 1.72 yesterday and 1.36 on August 28, 2018. She has normal total bilirubin, normal AST, normal ALT, elevated alkaline phosphatase of 242, it was 136 on August 23, 2018, indeterminate troponin I of 0.030, elevated BNP of 877, and decreased albumin of 2.9. I reviewed her electrocardiogram, which shows normal sinus rhythm, no ST changes to suggest an acute coronary syndrome. I also reviewed her chest x-ray, which shows mild patchy opacity in the right lower lung. ASSESSMENT AND PLAN: Ms. Gonzalez is a pleasant 58-year-old lady, who was seen at [facility] on September 01, 2018. Her problem list includes: 1. Dlaey-ss-iphsdti stage 3 renal failure. Ms. Gonzalez is presenting with [id number] stage 3 renal failure. She will be admitted to the hospital on observation basis. We will provide her albumin and recheck her creatinine. We will consult Nephrology Service. 2. Ascites: I will request ultrasound-guided paracentesis. 3. Diabetes mellitus type 2: We will start Accu-Cheks and insulin sliding scale. 4. Hypertension: We will monitor vital signs and titrate antihypertensives as needed. 5. Thrombocytopenia: Chronic, likely secondary to hypersplenism. 6. Depression: Mild, stable. 7. Hyperkalemia: We will administer beta agonists and Kayexalate. LEVEL OF RISK: High. LEVEL OF COMPLEXITY: High. Many thanks for allowing me to participate in your patient's care. Please feel free to contact me with any questions or concerns. Job ID: [id number]
[2018-09-01] MEDS: Albumin 25% 25 GM/100 ML BOT IVPB SCH ×2 (14:21→19:21)
[2018-09-01] MEDS ORDERED: Albuterol Sulfate 2.5 mg/3 ml Neb NEB SCH (14:45)
[2018-09-01] MEDS ORDERED: cefTRIAXone\\ROCEPHIN 2 GM VIAL ONE (15:22)
[2018-09-01] MEDS: cefTRIAXone\\ROCEPHIN 2 GM in Sodium Chloride 0.9% 100 ML IVPB SCH (15:28)
[2018-09-01 17:21] LABS: Troponin I 0.025 ng/mL (< 0.028)
[2018-09-01] MEDS ORDERED: HumaLOG 300 UNITS/3 ML VIAL ONE (18:37)
[2018-09-01] MEDS ORDERED: hydrOXYzine 25 MG TAB PO PRN (19:08)
[2018-09-01] MEDS ORDERED: Lidocaine Patch Removal 1 EACH TOP SCH (22:00)
[2018-09-02] MEDS: Albumin 25% 25 GM/100 ML BOT IVPB SCH ×2 (00:22→06:01)
[2018-09-02 06:58] LABS: #Eosinphils 0.1 thou/uL (0.0-0.7); #Lymphocytes 1.4 thou/uL (1.20-3.40); #Monocytes 0.5 thou/uL (0.11-0.59); %Basophils 0.1 % (0.0-1.0); %Eosinophils 1.2 % (0.0-10.0); %Monocytes 8.1 % (0.0-10.0); %Neutrophils 67.6 % (42.0-75.0); Hemoglobin 9.4 g/dL (12.0-16.0); Mean Corpuscular HGB CONC 32.6 g/dL (32.0-36.0); Mean Corpuscular Volume 95.2 fL (78.0-98.0); Mean Platelet Volume 11.2 fL (7.4-10.4); Platelet Count 44 thou/uL (130-400); RBC Distribution Width 17.1 % (11.5-14.5); Red Blood Cell (RBC) Count 3.02 mill/uL (4.20-5.40)
[2018-09-02 07:20] LABS: Anion Gap 18 mmol/L (10-20); BUN (Urea Nitrogen) 27 mg/dL (9.8-20.1); Calc. Creatinine Clearance 28 mL/min (70-130); Calcium 9.4 mg/dL (7.8-10.44); Carbon Dioxide 16 mmol/L (22-29); Chloride 113 mmol/L (98-107); Estimated GFR-MDRD 26; Glucose 116 mg/dL (70-105); Potassium 5.4 mmol/L (3.5-5.1); Sodium 142 mmol/L (136-145)
[2018-09-02] MEDS ORDERED: Albumin 25% 25 GM/100 ML BOT IVPB ONE (08:41)
[2018-09-02] MEDS ORDERED: Amlodipine 10 MG TAB PO SCH (09:00)
[2018-09-02] MEDS ORDERED: Nadolol 40 MG TAB PO SCH (09:00)
[2018-09-02] MEDS ORDERED: Prevnar 13-Val Conj/PF 0.5 ML SYRINGE IM ONE (09:00)
[2018-09-02] MEDS ORDERED: Insulin Glargine 30 UNITS in Pre-Filled Syringe 1 EACH SC SCH (09:00)
[2018-09-02] MEDS ORDERED: Albuterol Sulfate 1.25 MG/3 ML NEB NEB SCH ×2 (09:15→16:00)
--- NOTE | 2018-09-02 09:42 | PRG ---
DATE OF SERVICE: 09/02/2018 SUBJECTIVE: Ms. Gonzalez is a 58-year-old female with known history of chronic renal failure, cirrhosis with ascites and readmitted for recurrent ascites as well for an acute kidney injury. Her creatinine was noted to have worsened while she was at the rehab. We are being consulted for further management of this acute kidney injury. I did discuss the case with the hospitalist. We have started her on albumin infusion, which has improved her creatinine. Her creatinine from 2.19 to a most recent value of 1.98. My bias is to give her another continuous infusion of albumin 25 g IV q.6 hours for another day. Initially, the plan was to do a paracentesis. However, ultrasound of the abdomen was done and it showed only a mild abdominal ascites. During the last hospitalization, she did receive a large volume paracentesis. She voices no other complaints at the present time. OBJECTIVE: VITAL SIGNS: Blood pressure is 128/61, heart rate 75, respiratory rate 22, temperature 98, and pulse ox 92%. GENERAL: Awake, alert, comfortable, not in distress. SKIN: Adequate turgor. HEENT: She has slightly pale conjunctivae, anicteric sclerae. NECK: No neck mass. No carotid bruits. No JVD. CHEST: No deformities. LUNGS: Clear breath sounds. No wheezing. No crackles. HEART: Normal sinus rhythm. No murmurs, gallops, or rubs. ABDOMEN: Globular, soft, nontender. Positive for ascites. Soft. EXTREMITIES: No edema. MEDICATIONS: Medications of September 02, 2018, was reviewed. LABORATORY DATA: September 02, 2018, white count 6, hemoglobin 9.4. Sodium 142, potassium 5.4, chloride 113, carbon dioxide 16, BUN 27, creatinine 1.98, glucose 116, calcium 9.4. ASSESSMENT AND PLAN: 1. Acute kidney injury/chronic renal failure-most likely hemodynamically mediated in the renal dysfunction. Agree with albumin infusion. We will extend it for another day. No indication for any dialytic intervention. 2. Borderline anemia. We will simply observe this. 3. Cirrhosis/ascites, p.r.n. paracentesis as needed. Supportive care. 4. We will recheck basic metabolic panel and CBC in a.m. Job ID: [id number]
[2018-09-02] MEDS ORDERED: Lidocaine 5% Patch TD SCH (10:00)
[2018-09-02] MEDS: HumaLOG 300 UNITS/3 ML VIAL SC SCH ×3 (11:15→18:29)
[2018-09-02] MEDS: Sodium Bicarbonate Tab 325 MG TAB PO SCH ×2 (11:25→15:34)
--- NOTE | 2018-09-02 11:47 | ULT ---
ULTRASOUND GUIDED PARACENTESIS: HISTORY: Ascites. COMPARISON: 08/21/2018. FINDINGS: Successful ultrasound-guided paracentesis. A total of 2,650 mL of yellow-color ascites was aspirated . No immediate or postprocedure complication. TECHNIQUE: Consent was obtained to perform an ultrasound-guided paracentesis. Left lower quadrant was deemed ap propriate. The skin was prepped and draped in sterile fashion. 1% Lidocaine, buffered with sodium b icarbonate, was used for local anesthesia. Under ultrasound guidance, a 7 cm 5 [place] CorMatrix[employer] catheter was advanced to the peritoneal space. A total of 2,650 mL of yellow color ascites was aspirated. Th e patient tolerated the procedure well. No immediate or postprocedure complication. IMPRESSION: Successful ultrasound-guided paracentesis. POS: YOUNG
[2018-09-02] MEDS ORDERED: Albumin 25% 25 GM/100 ML BOT IVPB SCH (12:00)
[2018-09-02 12:20] LABS: Potassium 5.7 mmol/L (3.5-5.1)
[2018-09-02] MEDS ORDERED: HYDROcodone/Acetaminophen 5/325 mg Tablet PO PRN (13:08)
[2018-09-02 13:18] VITALS: BMI 26.4
[2018-09-02] MEDS: cefTRIAXone\\ROCEPHIN 2 GM in Sodium Chloride 0.9% 100 ML IVPB SCH (15:34)
[2018-09-02] MEDS ORDERED: Sodium Bicarb 50 MEQ/50 ML VIAL IVP SCH (16:00)
[2018-09-02 16:13] VITALS: BP 135/61; TEMP 98.7
--- NOTE | 2018-09-03 05:42 | DIS ---
DATE OF ADMISSION: 09/01/2018 DATE OF DISCHARGE: 09/02/2018 ALLERGIES: 1. DIPHENHYDRAMINE. 2. MORPHINE. 3. PENICILLINS. CHIEF COMPLAINT: Abdominal distention secondary to ascites. FINAL DIAGNOSES: 1. Alcoholic cirrhosis and portal hypertension with resulting ascites, status post ultrasound-guided paracentesis of approximately 2600 mL of fluid removed. 2. Recent hospitalization on August 18, 2018, through August 27, 2018, for L3-L4 diskitis, left psoas abscess, and resulting Streptococcus bacteremia, currently on antibiotic therapy with Rocephin via PICC line. 3. Acute on chronic renal insufficiency, improving. 4. History of chronic kidney disease, requiring dialysis in the past, no dialysis intervention for the past 3 years. 5. Hyperkalemia. 6. Cholelithiasis. PROCEDURES PERFORMED: Ultrasound-guided paracentesis. LABORATORY RESULTS: White blood cell count 6, RBC 3.02, hemoglobin 9.4, hematocrit 28.8, platelet count is 44. Sodium 142, potassium 5.4, 5.7, chloride 113, carbon dioxide 16, anion gap 18, BUN 27, creatinine 1.98, glucose 182. Troponin 0.021 and 0.025. IMAGING RESULTS: Chest x-ray shows mild patchy opacity in right lung. No pneumothorax or large effusions are seen. PICC line remains in place. Abdominal ultrasound showed mild abdominal ascites. Paracentesis ultrasound was successful and a total of 2650 mL of yellow colored ascites was aspirated, the patient tolerated the procedure well. CONSULTATIONS: Dr. Boyd of Nephrology. VITAL SIGNS: Blood pressure 135/61, O2 saturation is 93% on room air, temperature 98.7, pulse 77, respirations are 18. HOSPITAL COURSE: The patient is a 58-year-old female with numerous medical comorbidities and recent hospitalization at this facility from August 18, 2018, to August 27, 2018, for L3-L4 diskitis and resulting Streptococcus bacteremia. PICC line was placed and the patient was discharged to [facility]. The patient has complained of worsening abdominal distention and shortness of breath since her admission to rehab. She did have a therapeutic paracentesis about 3 weeks ago. Outpatient paracentesis was being arranged, however, because of the patient's worsening symptoms, she did present to the ER for treatment. The patient did undergo successful paracentesis as outlined above. Dr. Boyd was consulted regarding her hyperkalemia and kidney disease. She was given albumin, Kayexalate, DuoNebs, and bicarb. At this time, the patient is resting comfortably and has agreed to return to rehab. Dr. Boyd has graciously agreed to see the patient in the morning at her rehab regarding followup on her potassium level and renal function. PHYSICAL EXAMINATION: GENERAL: The patient is awake and alert x3, chronically ill appearance. HEENT: Eyes; no obvious scleral icterus. Extraocular movements intact. ENT; poor dentition. Mucous membranes are moist. NECK: Supple. No lymphadenopathy. No carotid bruits. Trachea is midline. CV: S1 and S2. Regular rate and rhythm. No appreciable murmurs, rubs, or gallops. RESPIRATORY: Regular respiratory rate and pattern, overall clear to auscultation bilaterally. ABDOMEN: Soft and distended. Positive bowel sounds. No appreciable fluid wave. NEUROLOGIC: Cranial nerves II through XII intact. The patient is nonfocal. SKIN: No obvious rashes. CONDITION AT DISCHARGE: Stable. DISCHARGE MEDICATIONS: 1. Ceftriaxone 2 g IV piggyback q.24 hours. 2. Colestipol HCL 1 g p.o. b.i.d. 3. Hydrocodone/acetaminophen 1 tablet p.o. q.6 hours p.r.n. pain. 4. Atarax 25 mg p.o. t.i.d. p.r.n. 5. Insulin aspart 5 units subcu t.i.d. 6. Insulin Levemir 16 units subcu b.i.d. 7. Lactulose 30 mL p.o. b.i.d. 8. Protonix 40 mg p.o. b.i.d. 9. Sodium bicarb 650 mg p.o. t.i.d. 10. Acetaminophen 325 mg tablet p.o. q.6 hours. 11. Amlodipine 10 mg tablet, one tablet daily. 12. Insulin Lantus 30 units subcu q.a.m. 13. Lidocaine patch one patch transdermal daily. 14. Megace 400 mg p.o. daily. 15. Corgard 40 mg p.o. daily. 16. Tramadol 50 mg p.o. q.8 p.r.n. The patient will also be discharged to finish her albumin per Dr. Boyd, which is to be given 25 g IV piggyback q.6 hours for a total of 4 doses. DISCHARGE DISPOSITION: Inpatient rehab. PLAN: The patient does have multiple chronic health issues and remains debilitated from her recent hospitalization and she will need continued inpatient rehab at this time. Dr. Boyd will continue to follow the patient in rehab as well. We will continue to avoid nephrotoxins in this patient. She will likely continue to need therapeutic paracentesis from time to time. The care of this patient has been discussed with Dr. Machuca who agrees with discharge as above. Job ID: [id number]
== END 2018-09-02 18:35 ==
LOC: ERS 09:42 → ERHOLD 12:33 → 2NO 20:04
PROVIDERS: ADMIT Internal Medicine; ATTEND Internal Medicine
PROC: 0W9G3ZX Drainage of Peritoneal Cavity, Percutaneous Approach, Diagnostic (ICD-10-PCS; principal; 2018-09-02)
DX: K70.31 Alcoholic cirrhosis of liver with ascites (principal); K76.6 Portal hypertension; I12.9 Hypertensive chronic kidney disease with stage 1 through stage 4 chronic kidney disease, or unspecified chronic kidney disease; E11.22 Type 2 diabetes mellitus with diabetic chronic kidney disease; N18.3 Chronic kidney disease, stage 3 (moderate); N17.9 Acute kidney failure, unspecified; D63.1 Anemia in chronic kidney disease; K68.12 Psoas muscle abscess; E87.5 Hyperkalemia; F32.9 Major depressive disorder, single episode, unspecified; D69.6 Thrombocytopenia, unspecified; Z79.2 Long term (current) use of antibiotics; Z79.4 Long term (current) use of insulin; Z79.899 Other long term (current) drug therapy; Z88.0 Allergy status to penicillin; Z88.5 Allergy status to narcotic agent; Z88.8 Allergy status to other drugs, medicaments and biological substances
CPT/HCPCS: 49083; 71045; 76705; 80048; 80053; 82553; 82962 ×2; 83880; 84132; 84484 ×2; 85025 ×2; 85610; 85730; 93005; 96365; 96366; 96367; 99285; G0378 ×2; P9047 ×2; 36415; 36416; J0696; J3490